=== PATIENT | female | born 1960 | race Caucasian/White ===

== ENCOUNTER 2021-07-06 21:14 | Observation (INO) | payer OTHER, SELFPAY ==
--- NOTE | ~2021-07-06 | XR_ITS ---
XR chest 1V DATE: 07/06/2021 22:43 INDICATION: Increased shortness of breath. Covid-positive. TECHNIQUE: PA chest COMPARISON: 07/22/2014 AP and lateral chest FINDINGS: Normal heart size. No hilar or mediastinal enlargement. There is patchy infiltrate and/or atelectasis in the left mid and both lower lung zones, left greater than right. No pleural effusion or pulmonary vascular congestion or pneumothorax. Degenerative spurring of the thoracic spine. Surgical clips, right upper quadrant, consistent with cholecystectomy. IMPRESSION: Patchy infiltrate and/or atelectasis in the left mid and both lower lung zones Reviewed, dictated and finalized at location A.
--- NOTE | ~2021-07-06 | CT_ITS ---
EXAMINATION: CTA chest PE protocol DATE: 07/07/2021 03:54 INDICATION: Shortness of breath. Positive Covid TECHNIQUE: Computed tomography angiography (CTA) of the chest was performed with 100 mL Omnipaque-350 intravenous contrast timed to evaluate the pulmonary arteries. Coronal maximum intensity projection 3D-reconstructions were created by the technologist. Automated exposure control and iterative reconst ruction technique were employed. Exam dose: 766.77 mGy-cm total exam DLP. COMPARISON: 07/06/2021 PA chest FINDINGS: There is suboptimal enhancement of the pulmonary arteries due to timing issue with the cont rast bolus. No central pulmonary embolus is identified. Examination is limited for evaluation of segmental and linares bsegmental pulmonary emboli. No thoracic aortic aneurysm or dissection. Normal heart size. No pericardial or pleural effusion. There are patchy groundglass infiltrates scattered throughout all lobes of both lungs, most prominent ly in the left lower lobe. Mild hilar and mediastinal lymph node prominence, likely reactive. Prominent degenerative disc disease in the lower cervical spine. Diffuse idiopathic skeletal hyperost osis of the thoracic spine.No suspicious osteolytic or osteoblastic lesions are noted. IMPRESSION: Multifocal bilateral pneumonia, most likely Covid pneumonia Suboptimal contrast enhancement of the pulmonary arteries; no central pulmonary embolus is identified . Reviewed, dictated and finalized at Location A. Reviewed, dictated and finalized at location A. IMPRESSION: Multifocal bilateral pneumonia, most likely Covid pneumonia Suboptimal contrast enhancement of the pulmonary arteries; no central pulmonary embolus is identified.
--- NOTE | 2021-07-06 21:22 | ECG_ITS ---
Measurements Intervals [place] Rate: 116 P: 46 MI: 172 QRS: -24 QRSD: 73 T: 70 QT: 303 QTc: 422 Interpretive Statements SINUS TACHYCARDIA LOW QRS VOLTAGE IN PRECORDIAL LEADS POOR R WAVE PROGRESSION, ANTERIOR LEADS BASELINE WANDER- II, III, AVL, AVF ABNORMAL ECG Electronically Signed On 07-07-2021 8:24:30 CDT by Elder Mchugh D.O.
[2021-07-06 21:23] VITALS: BP 154/89; PULSE 118; RESP 22; TEMP 35.7; O2SAT 93
[2021-07-06 21:42] LABS: Basophils Percent Auto 0.3 % (0.2-1.2); Eosinophils Percent Auto 0.5 % (0-4.4); Hematocrit 44.8 % (37.0-47.0); Hemoglobin 14.2 g/dL (12.0-15.0); Immature Granulocyte Absolute 0.03 K/mm3 (0.00-0.031); Immature Granulocyte Percent A 0.5 % (0-0.5); Lymphocytes Absolute Auto 2.35 K/mm3 (0.9-3.2); Lymphocytes Percent Auto 39.6 % (18.3-44.2); Mean Corpuscular HGB Conc 31.7 g/dl (32-36); Mean Corpuscular Hemoglobin 28.5 pg (26-34); Mean Platelet Volume 9.8 fl (7.4-10.4); Monocytes Absolute Auto 0.3 K/mm3 (0.1-0.6); Monocytes Percent Auto 4.6 % (2.6-8.5); Neutrophils Absolute Auto 3.2 K/mm3 (1.3-6.7); Neutrophils Percent Auto 54.5 % (45.5-73.1); Platelet Count Result 197 k/mm3 (150-375); Red Blood Count 4.98 M/mm3 (4.2-5.4); Red Cell Distribution Width 12.9 % (11.5-14.5); White Blood Count 5.9 K/mm3 (4.5-10.0)
[2021-07-06 21:48] LABS: Anion Gap 11 mmol/L (8-16); Blood Urea Nitrogen 19 mg/dL (7-17); Calcium 9.4 mg/dL (8.4-10.2); Carbon Dioxide 25 mmol/L (22-30); Chloride 99 mmol/L (98-107); Estimated Glomerular Filt Rate > 60; Glucose 181 mg/dL (65-110); Sodium 135 mmol/L (137-145)
[2021-07-07] VITALS (17 sets, daily range): BP systolic 125–163; BP diastolic 53–80; PULSE 73–114; RESP 15–24; TEMP 35.5–37.1; O2SAT 90–98; BMI 44.8
[2021-07-07 03:09] LABS: D Dimer 0.86 ug/mL (<0.48)
[2021-07-07 03:10] LABS: Alanine Aminotransferase 31 U/L (4-35); Albumin Level 4.2 g/dL (3.5-5.1); Alkaline Phosphatase 103 U/L (38-126); Aspartate Amino Transferase 58 U/L (14-36); Bilirubin,Total 0.8 mg/dL (0.2-1.3)
--- NOTE | 2021-07-07 03:16 | PC.NURSE ---
Patient ambulated to BSC to urinate, her O2 dropped to 88% on RA. Patient assisted back to her bed from bed side commode, her O2 increased to 92% on RA after rest. ERP notified.
--- NOTE | 2021-07-07 03:32 | ED.SOB ---
HPI - SOB/Dyspnea General Chief Complaint: Shortness of Breath/Dyspnea Stated Complaint: + covid, sob Time Seen by Provider: 07/07/21 02:36 Source: RN notes reviewed History of Present Illness HPI Narrative: Patient presents to emergency department from home for shortness of breath. Patient states she tested positive for Covid 19 on 30 June she states she did receive the vaccination she states that over the past several days she has had increasing shortness of breath with exertion she also notes some midsternal chest pain with inspiration only she denies any chest pain in any other time other than with inspiration she denies any fevers or chills abdominal pain nausea vomiting or any other symptoms Related Data Allergies Allergy/AdvReac Type Severity Reaction Status Date / Time codeine Allergy Intermediate RASH, Verified 07/07/21 02:30 DIFFICULTY BREATHING Review of Systems Review of Systems: Gen.: Denies fevers or chills Eyes: Denies eye pain or visual change ENT: Denies congestion Respiratory: Reports shortness of breath CV: Reports chest pain with inspiration GI: Denies abdominal pain nausea, emesis or diarrhea Musculoskeletal: Denies back pain or muscle pain Neuro: Denies numbness, tingling, weakness or focal weakness Skin: Denies rash Except as documented, all other systems reviewed and negative [facility] Past Medical History Medical History (Updated 07/07/21 @ 04:20 by Josh Vegas DO) Diabetes mellitus Hypertension Social History Social History (Updated 07/07/21 @ 03:34 by Josh Vegas DO) Smoking status: Never smoker Exam Narrative: APPEARANCE: No acute distress, nontoxic, resting in bed EYES: EOMI HEENT: Normocephalic, atraumatic, OMM RESPIRATORY: No respiratory distress Clear to auscultation bilaterally with no rhonchi wheezing or rales. CARDIOVASCULAR: Regular rate and rhythm without murmurs rubs or gallops. ABDOMINAL: Soft, nontender, nondistended, no rebound or guarding MUSCULOSKELETAl: Moves all extremities. No clubbing, cyanosis or edema. NEURO: Awake and alert. Following commands, speech normal, no focal deficits SKIN:: Warm, dry. No rashes lesions or abrasions PSYCHIATRIC: Normal affect/mood, Course Course Emergency Course: Patient went to use bedside commode with oxygen desaturation down to 87% Discussed with Dr. Gandhi presentation work-up agrees with admission at this time Discussed with patient and family results of workup and diagnosis. Discussed need for admission. Patient and family understand and agree to current treatment plan Vital Signs Vital signs: Vital Signs Temperature 96.3 F L 07/06/21 21:23 Pulse Rate 118 H 07/06/21 21:23 Respiratory Rate 22 H 07/06/21 21:23 Blood Pressure 154/89 H 07/06/21 21:23 Pulse Oximetry 93 07/06/21 21:23 Temperature 98.5 F 07/07/21 02:27 Pulse Rate 112 H 07/07/21 03:16 Respiratory Rate 15 07/07/21 03:16 Blood Pressure 163/74 H 07/07/21 03:16 Pulse Oximetry 92 07/07/21 03:16 MDM - SOB/Dyspnea Lab Data Result diagrams: 07/06/21 21:32 07/06/21 21:32 Labs: Lab Results 07/06/21 07/06/21 07/07/21 Range/Units 21:32 21:32 02:50 WBC 5.9 (4.5-10.0) K/mm3 RBC 4.98 (4.2-5.4) M/mm3 Hgb 14.2 (12.0-15.0) g/dL Hct 44.8 (37.0-47.0) % MCV 90.0 (80-100) fl MCH 28.5 (26-34) pg MCHC 31.7 L (32-36) g/dl RDW 12.9 (11.5-14.5) % Plt Count 197 (150-375) k/mm3 MPV 9.8 (7.4-10.4) fl Immature Gran % (Auto) 0.5 (0-0.5) % Neut % (Auto) 54.5 (45.5-73.1) % Lymph % (Auto) 39.6 (18.3-44.2) % [place] % (Auto) 4.6 (2.6-8.5) % Eos % (Auto) 0.5 (0-4.4) % Baso % (Auto) 0.3 (0.2-1.2) % Lymph # (Auto) 2.35 (0.9-3.2) K/mm3 [place] # (Auto) 0.3 (0.1-0.6) K/mm3 Eos # (Auto) 0.0 (0-0.3) K/mm3 Baso # (Auto) 0.0 (0.0-0.1) K/mm3 Abs Immat Gran (auto) 0.03 (0.00-0.031) K/mm3 Absolute Neuts (auto
--- NOTE | 2021-07-07 03:46 | PC.NURSE ---
This nurse called to CT for IV unable to use contrast, IV was tough to push. IV repositioned, but tender, still ok. 2nd IV placed in L AC, 20g.
[2021-07-07 04:05] LABS: Troponin I < 0.012 ng/mL (0.000-0.034)
--- NOTE | 2021-07-07 04:22 | PC.NURSE ---
Patient placed on 2L of oxygen via NC per EDP VORB.
--- NOTE | 2021-07-07 05:38 | ADMGEN ---
This patient, Laila Gamble, was admitted to [facility] Surg Room 302-01. Patient/family oriented to hospital policies and general routines including ID bracelet, bed and alarms, visiting hours, pain management, procedures, bathroom and other care routines, personal items, smoking policy, room service/diet, and visiting hours. Information on how to activate the Rapid Response Team has been discussed. Patient/Family are encouraged to report perceived risks to care and to ask questions if they do not understand what they are told or what they should do.
[2021-07-07 07:48] LABS: Troponin I < 0.012 ng/mL (0.000-0.034)
--- NOTE | 2021-07-07 08:26 | PM.IMHP ---
H&P: HPI History of Present Illness Date/Time: 07/07/21 08:26 Laila was a pleasant 61-year-old female admitted for COVID. She tested positive on Thursday and started feeling much worse on . She was admitted Thursday, yesterday here in the ER. She was started on dexamethasone and now on Remdesivir. Troponins x3 were negative and normal. Her hepatic panel was normal. D-dimer is slightly elevated at 0.86, but her CT scan showed no evidence of pulmonary emboli, but did show consistent COVID pneumonia. Her A1c is elevated at 7.7 started her ACHS glucose checks and moderate sliding scale insulin. She has been on 2 L of oxygen per nasal cannula, feeling better while at rest. But she is extremely dyspneic with conversation and especially with activity or ambulation to the bathroom. She has been trying to give herself a bed bath while sitting up on the side of the bed and that has taken more than 30 minutes, due to her dyspnea. Chief Complaint: COVID +, SOB, Dyspnea Review of Systems Review of Systems: All systems reviewed & are unremarkable except as noted in HPI and below Constitutional: Constitutional: Reports as per HPI, Denies excessive sweating, Reports fatigue, Denies headache(s), Denies increased appetite, Reports lethargy, Reports malaise, Denies snoring, Reports weakness and Denies weight gain Eyes: Eyes: Reports as per HPI, Denies exophthalmos, Denies diplopia, Denies floaters and Denies loss of peripheral vision ENT: Reports as per HPI, Reports Normal hearing present, Denies facial pain, Denies headache(s), Denies odynophagia and Denies tinnitus Cardiovascular: Cardiovascular: Reports as per HPI Respiratory: Respiratory: Reports as per HPI, Reports chest congestion, Reports cough, Denies hemoptysis, Reports dyspnea, Reports dyspnea on exertion, Denies snoring and Reports wheezing Gastrointestinal: Gastrointestinal: Reports as per HPI, Denies abdominal pain, Denies melena, Denies bloating, Denies diarrhea, Denies nausea, Denies odynophagia, Denies vomiting and Denies hematemesis Genitourinary: Genitourinary: Reports as per HPI, Denies nocturia, Denies dysuria, Denies urinary hesitancy and Denies vaginal discharge Musculoskeletal: Musculoskeletal: Reports as per HPI and Reports back pain (left upper back pain pain but only during/with coughing) Integumentary/Breasts: Skin/Breast: Reports as per HPI Neurologic: Reports as per HPI, Denies Abnormal speech present, Denies confusion, Denies headache(s) and Denies numbness Psychiatric: Psychiatric: Reports as per HPI, Denies anxiety, Denies confusion and Denies depression Endocrine: Endocrine: Denies excessive sweating PMFSH Past Medical History Medical History (Updated 07/07/21 @ 16:39 by Judy Pressley NP) Diabetes mellitus Hypertension Social History Social History (Updated 07/07/21 @ 03:34 by Josh Vegas DO) Smoking status: Never smoker Alcohol intake: never Substance use: never Gender identity (if verbalized by the patient): Female Spiritual care concerns: No Meds Home Medications and Allergies Home Medications Medication Instructions Recorded Confirmed Type diclofenac sodium 75 mg PO BID 07/07/21 07/07/21 History gabapentin 900 mg PO HS 07/07/21 07/07/21 History glimepiride 1 mg PO DAILY 07/07/21 07/07/21 History metformin 1,000 mg PO BID 07/07/21 07/07/21 History metoprolol tartrate 150 mg PO BID 07/07/21 07/07/21 History tramadol-acetaminophen 50 mg PO Q6H PRN 07/07/21 07/07/21 History Allergies Allergy/AdvReac Type Severity Reaction Status Date / Time codeine Allergy Intermediate RASH, Verified 07/07/21 02:30 DIFFICULTY BREATHING Vital Signs Vital Signs - 24 hr 07/06/21 21:23 07/07/21 00:02 07/07/21 02:27 Temperature 35.7 C L 36.9 C Pulse Rate 118 H 114 H 110 H Respiratory Rate 22 H 22 H 21 H Blood Pressure 154/89 H 125/74 156/80 H Pulse Oximetry 93 95 94 07/07/21 02:29 07/07/21 02:34
[2021-07-07] MEDS: DEXAMETHASONE SOD PHOS INJ 4 MG/ML VIAL 6 MG IV PUSH (09:18)
[2021-07-07] MEDS: ALBUTEROL SULFATE (*SP) AEROSOL 1 PUFF 2 PUFF INHALATION ×2 (09:28→20:02)
[2021-07-07 10:42] LABS: Troponin I < 0.012 ng/mL (0.000-0.034)
[2021-07-07 11:45] LABS: Glucose Point of Care 299 mg/dl (65-105)
[2021-07-07 12:52] LABS: Hemoglobin A1C 7.7 % (<5.7)
[2021-07-07] MEDS: INSULIN ASPART (*BKC) 100 UNITS/ML SUB-Q ×2 (13:12→16:51)
[2021-07-07 16:48] LABS: Alanine Aminotransferase 31 U/L (4-35); Estimated CRCL calculation 115 ml/min; Estimated Glomerular Filt Rate > 60
[2021-07-07 16:49] LABS: INR 0.9; Prothrombin Time 11.7 Seconds (11.1-14.7)
[2021-07-07 17:31] LABS: Glucose Point of Care 292 mg/dl (65-105)
--- NOTE | 2021-07-07 17:37 | PCRCNOTE ---
Window of time for administration has passed. See next scheduled administration.
[2021-07-07] MEDS: REMDESIVIR 200 MG/NS 250 ML 200 MG/250 ML BAG 250 MG IVPB (18:41)
[2021-07-07] MEDS: METOPROLOL TARTRATE 50 MG TAB 150 MG PO (20:09)
[2021-07-07] MEDS: GABAPENTIN 300 MG CAPSULE 900 MG PO (20:10)
[2021-07-07 20:44] LABS: Glucose Point of Care 283 mg/dl (65-105)
[2021-07-08] VITALS (14 sets, daily range): BP systolic 132–155; BP diastolic 49–67; PULSE 59–90; RESP 16–20; TEMP 35.7–36.9; O2SAT 92–95
[2021-07-08] MEDS: ALBUTEROL SULFATE (*SP) AEROSOL 1 PUFF 2 PUFF INHALATION ×4 (01:24→21:01)
[2021-07-08 06:40] LABS: Basophils Percent Auto 0.3 % (0.2-1.2); Hematocrit 40.2 % (37.0-47.0); Hemoglobin 12.9 g/dL (12.0-15.0); Immature Granulocyte Absolute 0.07 K/mm3 (0.00-0.031); Immature Granulocyte Percent A 1.1 % (0-0.5); Lymphocytes Absolute Auto 1.34 K/mm3 (0.9-3.2); Lymphocytes Percent Auto 21.3 % (18.3-44.2); Mean Corpuscular HGB Conc 32.1 g/dl (32-36); Mean Corpuscular Hemoglobin 28.5 pg (26-34); Mean Corpuscular Volume 88.9 fl (80-100); Mean Platelet Volume 9.8 fl (7.4-10.4); Monocytes Absolute Auto 0.5 K/mm3 (0.1-0.6); Monocytes Percent Auto 7.8 % (2.6-8.5); Neutrophils Absolute Auto 4.4 K/mm3 (1.3-6.7); Neutrophils Percent Auto 69.5 % (45.5-73.1); Platelet Count Result 262 k/mm3 (150-375); Red Blood Count 4.52 M/mm3 (4.2-5.4); Red Cell Distribution Width 12.7 % (11.5-14.5); White Blood Count 6.3 K/mm3 (4.5-10.0)
[2021-07-08 07:05] LABS: Alanine Aminotransferase 26 U/L (4-35); Anion Gap 9 mmol/L (8-16); Blood Urea Nitrogen 18 mg/dL (7-17); Carbon Dioxide 23 mmol/L (22-30); Chloride 104 mmol/L (98-107); Estimated CRCL calculation 100 ml/min; Estimated Glomerular Filt Rate > 60; Glucose 244 mg/dL (65-110); Magnesium 2.1 mg/dL (1.6-2.3); Potassium 4.6 mmol/L (3.4-5.0); Sodium 136 mmol/L (137-145)
[2021-07-08 07:52] LABS: Glucose Point of Care 237 mg/dl (65-105)
[2021-07-08] MEDS: DEXAMETHASONE SOD PHOS INJ 4 MG/ML VIAL 6 MG IV PUSH (08:46)
[2021-07-08] MEDS: INSULIN ASPART (*BKC) 100 UNITS/ML SUB-Q ×3 (08:47→17:06)
[2021-07-08] MEDS: METOPROLOL TARTRATE 50 MG TAB 150 MG PO ×2 (09:35→21:45)
[2021-07-08 12:03] LABS: Glucose Point of Care 262 mg/dl (65-105)
--- NOTE | 2021-07-08 13:19 | PM.IMPN ---
Progress Note: A&P Assessment and Plan (1) Acute respiratory failure with hypoxia: Code(s): J96.01 - Acute respiratory failure with hypoxia Status: Acute Assessment and Plan: admitted for COVID. tested positive on Thursday and started feeling much worse on . admitted Thursday, yesterday here in the ER. started on dexamethasone and now on Remdesivir. Troponins x3 were negative and normal. D-dimer is slightly elevated at 0.86, but her CT scan showed no evidence of pulmonary emboli, but did show consistent COVID pneumonia. on 2 L of oxygen per nasal cannula, weaned off O2 at this time, feeling better while at rest but still dyspneic with activity. extremely dyspneic with conversation and especially with activity or ambulation to the bathroom. see the plan for COVID below (2) COVID-19: Code(s): U07.1 - COVID-19 Status: Acute Assessment and Plan: admitted for COVID. tested positive on Thursday and started feeling much worse on . admitted Thursday, yesterday here in the ER. started on dexamethasone and now on Remdesivir. CT scan showed no evidence of pulmonary emboli, but did show consistent COVID pneumonia. on 2 L of oxygen per nasal cannula, weaned off O2 at this time, feeling better while at rest but still dyspneic with activity. extremely dyspneic with conversation and especially with activity or ambulation to the bathroom. not on oxygen at home prior to admission albuterol inhalers scheduled with p.r.n. DuoNeb nebulizer treatments incentive spirometer ordered extremely dyspneic with conversation and especially with activity or ambulation to the bathroom see the plan for acute respiratory failure with hypoxia noted above (3) Hypertension: Code(s): I10 - Essential (primary) hypertension Status: Acute Assessment and Plan: her blood pressure is ranging from 137/68 to 163/74 with a heart rate 100-112 (4) Diabetes mellitus: Code(s): E11.9 - Type 2 diabetes mellitus without complications Status: Acute Assessment and Plan: Encouraged dietary control and increased activity PT and OT evaluation controlled glucose levels better started on dexamethasone and this will likely increase her glucose levels A1c is elevated at 7.7 started her [facility] glucose checks and moderate sliding scale insulin. (5) Morbid obesity with BMI of 40.0-44.9, adult: Code(s): E66.01 - Morbid (severe) obesity due to excess calories; Z68.41 - Body mass index [BMI]40.0-44.9, adult Status: Acute Assessment and Plan: Encouraged dietary control and increased activity PT and OT evaluation controlled glucose levels better Subjective Date/time seen: 07/08/21 13:19 Laila is feeling much better today and managed to finally wean from the supplemental oxygen just today. We will see if she can remain off the supplemental oxygen for the next 24-48 hours. She is still having dyspnea with exertion, may benefit from rehab. Continue her on Remedisvir for a full course. Laila was complaining of burning with urination this morning. I have ordered urinalysis and urine culture to be collected - will wait until those result until starting anbiobiotics, as she has no fevers and her WBC is 6.3. Review of Systems Review of Systems: All systems reviewed & are unremarkable except as noted in HPI and below Constitutional: Constitutional: Reports as per HPI, Denies excessive sweating, Reports fatigue, Denies headache(s), Denies increased appetite, Reports lethargy, Reports malaise, Denies snoring, Reports weakness and Denies weight gain Eyes: Eyes: Reports as per HPI, Denies exophthalmos, Denies diplopia, Denies floaters and Denies loss of peripheral vision ENT: Reports as per HPI, Reports Normal hearing present, Denies facial pain, Denies headache(s), Denies odynophagia and Denies tinnitus Cardiovascular: Cardiovascular: Reports as per HPI, R
[2021-07-08 13:51] LABS: Add Urine Microscopic? YES; Appearance Urine Cloudy (Clear); Bacteria Urine 4+ /hpf; Bilirubin Urine Negative (Negative); Blood Urine 1+ (Negative); Color Urine Yellow (Yellow); Glucose Urine UA Negative (Negative); Ketones Urine Negative (Negative); Leukocyte Esterase Ur 2+ LEU/UL (NEGATIVE); Mucus Urine Heavy /lpf; Nitrate Urine Negative (Negative); Protein Urine Negative (Negative); RBC Urine 0-2 /hpf (0-2); Specific Grav Ur 1.023 (1.001-1.035); Squamous Epithelial Cell Urine Few /hpf (Few); WBC Urine 21-30 /hpf (0-3)
[2021-07-08 16:42] LABS: Glucose Point of Care 302 mg/dl (65-105)
[2021-07-08] MEDS: REMDESIVIR 100 MG/NS 250 ML 100 MG/250 ML BAG 250 MG IVPB (21:44)
[2021-07-08] MEDS: GABAPENTIN 300 MG CAPSULE 900 MG PO (21:46)
[2021-07-08 22:00] LABS: Glucose Point of Care 293 mg/dl (65-105)
[2021-07-09] VITALS (9 sets, daily range): BP systolic 115–147; BP diastolic 48–60; PULSE 53–62; RESP 14–18; TEMP 36.4–36.8; O2SAT 92–99
[2021-07-09 07:00] LABS: Hemoglobin 12.4 g/dL (12.0-15.0); Mean Corpuscular HGB Conc 32.6 g/dl (32-36); Mean Corpuscular Hemoglobin 28.6 pg (26-34); Mean Corpuscular Volume 87.6 fl (80-100); Mean Platelet Volume 10.1 fl (7.4-10.4); Platelet Count Result 292 k/mm3 (150-375); Red Blood Count 4.34 M/mm3 (4.2-5.4); Red Cell Distribution Width 12.4 % (11.5-14.5); White Blood Count 7.7 K/mm3 (4.5-10.0)
[2021-07-09 07:11] LABS: Alanine Aminotransferase 31 U/L (4-35); Anion Gap 11 mmol/L (8-16); Blood Urea Nitrogen 24 mg/dL (7-17); Calcium 8.9 mg/dL (8.4-10.2); Carbon Dioxide 20 mmol/L (22-30); Chloride 100 mmol/L (98-107); Estimated CRCL calculation 115 ml/min; Estimated Glomerular Filt Rate > 60; Glucose 231 mg/dL (65-110); Potassium 3.8 mmol/L (3.4-5.0); Sodium 131 mmol/L (137-145)
[2021-07-09 07:24] LABS: Prothrombin Time 13.3 Seconds (11.1-14.7)
[2021-07-09] MEDS: ALBUTEROL SULFATE (*SP) AEROSOL 1 PUFF 2 PUFF INHALATION ×2 (08:03→14:56)
[2021-07-09 08:13] LABS: Glucose Point of Care 203 mg/dl (65-105)
[2021-07-09] MEDS: DEXAMETHASONE SOD PHOS INJ 4 MG/ML VIAL 6 MG IV PUSH (08:49)
[2021-07-09] MEDS: METOPROLOL TARTRATE 50 MG TAB 150 MG PO (08:49)
[2021-07-09] MEDS: INSULIN ASPART (*BKC) 100 UNITS/ML SUB-Q ×2 (08:50→12:05)
[2021-07-09 12:09] LABS: Glucose Point of Care 318 mg/dl (65-105)
--- NOTE | 2021-07-09 13:46 | PCDIET ---
Pt called regarding questions on the consistent carb diet. She does not always like the carb options provided and is allowed 60g of carbs per meal. I explained to the patient that if she does not eat the carb servings provided on her tray, the healthcare associate inspector finishing can call down to the kitchen to request a replacement. Diet office notified as well.
--- NOTE | 2021-07-09 15:53 | PM.DS ---
DS: Admitting Diagnosis Admitting Diagnosis SOB DS: Discharge Diagnosis Discharge Diagnosis (1) Acute respiratory failure with hypoxia: Code(s): J96.01 - Acute respiratory failure with hypoxia Status: Acute Assessment and Plan: Patient is a 61-year-old woman with a history of diabetes, who presented to the emergency room with worsening shortness of breath. The patient tested positive for COVID on June 30 and was doing well at home until she had increased shortness of breath with exertion and chest pain with deep inspiration and coughing. She decided to come to the emergency room for further evaluation. Initial vitals showed blood pressure elevation 154/89, tachycardic at 118, increased respiratory rate 22, afebrile, normal saturation on room air 93%. Initial labs showed normal CBC with differential, elevated D-dimer at 0.86, slight hyponatremia at 135, hemoglobin A1c is 7.7%. Troponins negative x3. Slight AST elevation at 58. Urinalysis showing 1+ blood, 2+ leukocyte esterase, wbc's 21-30, and 4+ urine bacteria. CXR showed Patchy infiltrate and/or atelectasis in the left mid and both lower lung zones. CTA Chest showing Multifocal bilateral pneumonia, most likely COVID pneumonia. Suboptimal contrast enhancement of the pulmonary arteries; no central pulmonary embolus is identified. She was admitted into the hospital for further monitoring for COVID-19. During her hospitalization she did require oxygen via nasal cannula. She was started on IV dexamethasone and remdesivir along with symptomatic care. After a few days of treatment she was able to be weaned off of the oxygen completely. Today she told me she did 6 labs in her room of walking with very low minimal shortness of breath with exertion. She also made her bed and was feeling well. She had a home oxygen evaluation which showed she did not require any oxygen upon discharge. She was feeling comfortable with discharge at this time to continue with 7 more days of dexamethasone p.o.. Told patient to continue isolating. Told her to follow-up primary care provider after 1 week. Patient understands and agrees with the plan all questions answered. (2) COVID-19: Code(s): U07.1 - COVID-19 Status: Acute (3) Hypertension: Code(s): I10 - Essential (primary) hypertension Status: Acute Assessment and Plan: her blood pressure is ranging from 137/68 to 163/74 with a heart rate 100-112 (4) Diabetes mellitus: Code(s): E11.9 - Type 2 diabetes mellitus without complications Status: Acute Assessment and Plan: Told the patient to continue taking her glucose throughout the day because it can become higher since she is on steroids. Call her doctor if glucose is greater than 350. Patient understands agrees the plan all questions answered. (5) Morbid obesity with BMI of 40.0-44.9, adult: Code(s): E66.01 - Morbid (severe) obesity due to excess calories; Z68.41 - Body mass index [BMI]40.0-44.9, adult Status: Acute DS: Summary Hospital Course Hospital Course: See above Status at Discharge Cognitive/behavioral status at discharge: Stable, improved. Time Spent with Patient Time attestation: Total time spent providing and/or coordinating discharge services: Time spent: Greater than 30 minutes Exam Narrative: General: 61-year-old woman sitting up on the side of the bed talking on the phone. Appears comfortable. In no acute distress. Skin: No jaundice or cyanosis. Good skin turgor. Neck: Full range of motion. Supple. Respiratory: Lungs are clear to auscultation bilaterally. No bony chest wall tenderness. Cardiovascular: The heart has a regular rate and rhythm without murmur. Lower extremities: No lower extremity edema. Distal pulses are easily palpated. No calf tenderness to palpation. Gastrointestinal: The abdomen is soft, nontender and nondistended with active bowel sounds. Psychiatric: Lucid
--- NOTE | 2021-07-09 16:31 | PCRCNOTE ---
HOME O2 EVAL DONE, NO HOME O2 NEEDED. RN NOTIFIED
== END 2021-07-09 17:13 | disposition home or self-care (01) ==
LOC: ANHED 07-07 04:20 → ANH3MEDSUR 07-07 04:51
PROVIDERS: Nurse Practitioner; Physician Assistant; Admitting Provider Internal Medicine; Emergency Provider Emergency Medicine; PCP Family Medicine Adolescent Medicine; Visit Provider Internal Medicine
DX: U07.1 COVID-19 (principal); J12.82 Pneumonia due to coronavirus disease 2019; J96.01 Acute respiratory failure with hypoxia; E11.9 Type 2 diabetes mellitus without complications; I10 Essential (primary) hypertension; E66.01 Morbid (severe) obesity due to excess calories; Z68.41 Body mass index [BMI] 40.0-44.9, adult
CPT/HCPCS: 36415; 71045; 71275; 80048; 80076; 81001; 82565; 82948; 83036; 83735; 84460; 84484; 85025; 85027; 85380; 85610; 87040; 87077; 87086; 87088; 87186; 93005; 94618; 94640; 96365; 96374; 96375; 96376; 97161; 97165; 99285; A9270; G0378; J1100; J1815; Q9967

== ENCOUNTER 2022-05-23 19:18 | Emergency (ER) | payer OTHER, SELFPAY ==
[2022-05-23 19:32] VITALS: BP 165/97; PULSE 74; RESP 20; TEMP 36.2; O2SAT 100
--- NOTE | 2022-05-23 19:39 | ED.SKABFB ---
HPI - Skin/Abscess/Foreign Bdy General Chief complaint: Skin/Abscess/Foreign Body Stated complaint: Sore on Leg Time Seen by Provider: 05/23/22 19:39 Source: patient Mode of arrival: ambulatory Limitations: no limitations History of Present Illness HPI narrative: 61 yo F presents with abrasion to R cedeno for 5 days. States that she hit her leg on bed frame Thursday. Has been cleaning wound daily with soap and water. Today noticed soreness surround abrasion. Had white drainage. 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 hx of diabetes. pt afraid of getting infection. All systems reviewed and negative except as noted above. Related Data Home Medications Medication Instructions Recorded Confirmed metformin 1,000 mg tablet 1,000 mg PO BID 07/07/21 05/23/22 tramadol-acetaminophen 50 mg PO Q6H PRN Pain 07/07/21 05/23/22 Allergies Allergy/AdvReac Type Severity Reaction Status Date / Time codeine Allergy Intermediate RASH, Verified 05/23/22 19:25 DIFFICULTY BREATHING IRMA Inhibitors AdvReac Unknown cough Verified 05/23/22 19:25 Review of Systems Review of Systems: CONSTITUTIONAL: Denies fever, chills, or sweats. EYES: Denies visual changes, redness, or discharge. ENT: Denies rhinorrhea, congestion, sore throat, or otalgia. CARDIOVASCULAR: Denies chest pain, palpitations, or edema. RESPIRATORY: Denies cough or dyspnea. GASTROINTESTINAL: Denies abdominal pain, nausea, vomiting, or diarrhea. GENITOURINARY: Denies dysuria or hematuria. SKIN: Denies rash or itching. Reports abrasion right mid cedeno. MUSCULOSKELETAL: Denies back pain, joint pain, or myalgia. NEUROLOGIC: Denies headache, numbness, or weakness. PSYCHIATRIC: Denies anxiety or depression. All other systems reviewed are negative, except as documented in HPI. [facility] Past Medical History Medical History Acute respiratory failure with hypoxia COVID-19 Hypertension Pure hypercholesterolemia, unspecified Type 2 diabetes mellitus with diabetic polyneuropathy Surgical History Surgical History History of appendectomy History of History of cholecystectomy Family History Family History (Updated 03/03/22 @ 08:32 by Zoie Joseph MA) Mother Diabetes mellitus Hypertension Cerebrovascular accident Father Heart disease Hypertension Sibling Depression Liver cancer Other Breast cancer Social History Social History (Updated 03/03/22 @ 08:32 by Zoie Joseph MA) Smoking status: Never smoker Second hand tobacco smoke exposure: No Alcohol intake: never Substance use: never Substance use type: does not use Gender identity (if verbalized by the patient): Female Sexual Orientation (if Verbalized by the Patient): Straight or Heterosexual Spiritual care concerns: No Agree to blood products: Yes Comments At time of signature, agree with nursing past medical, surgical, social and family history. There is no relevant family history pertinent to the presenting complaint. Exam Narrative: GENERAL: This is a well-nourished, well-developed patient, in no apparent distress. HEAD: normocephalic, atraumatic. EYES: PERRL. Sclera clear/white. Vision is grossly intact. EARS: External ears normal NOSE: External nose normal NECK: Neck supple, non-tender without lymphadenopathy, masses or thyromegaly. CARDIOVASCULAR: Regular rate and rhythm without murmurs, gallops, or rubs. RESPIRATORY: Clear to auscultation. Breath sounds equal bilaterally. No wheezes, rales, or rhonchi. SKIN: warm, Dry, with no suspicious lesions or rash, good texture and turgor. small abrasion to R cedeno approx. 1 cm. mild erythema. no drainage. NEURO: awake, alert, and oriented to person, place and time. There were no obvious focal neurologic abnormalities. EXTREMITIES: No joint tenderness, effusion, or edema noted. Course [place]
== END 2022-05-23 19:48 | disposition home or self-care (01) ==
PROVIDERS: Emergency Provider Nurse Practitioner Family; PCP Family Medicine Adolescent Medicine
DX: S80.811A Abrasion, right lower leg, initial encounter (principal); W22.03XA Walked into furniture, initial encounter; I10 Essential (primary) hypertension; E78.00 Pure hypercholesterolemia, unspecified; E11.42 Type 2 diabetes mellitus with diabetic polyneuropathy; Z86.16 Personal history of COVID-19
CPT/HCPCS: 99213; G0463

== ENCOUNTER 2022-08-14 17:39 | Emergency (ER) | payer OTHER, SELFPAY ==
--- NOTE | ~2022-08-14 | XR_ITS ---
XR tibia fibula RT 2V 08/14/2022 18:07 INDICATION: Right leg pain PROCEDURE: 2 views right tibia/fibula COMPARISON: No prior studies for comparison. FINDINGS: Fracture, dislocation or subluxation is not identified. There is mild osteoarthritis of the right knee. The soft tissues appear within normal limits. No foreign bodies are identified. IMPRESSION: 1: NO ACUTE BONE OR JOINT ABNORMALITY IDENTIFIED. Reviewed, dictated and finalized at location A.
[2022-08-14 17:51] VITALS: BP 204/78; PULSE 74; RESP 16; TEMP 37; O2SAT 100
--- NOTE | 2022-08-14 17:53 | ED.LOWEXIN ---
HPI - Extremity Injury (Lower) General Chief Complaint: Extremity Injury, Lower Stated Complaint: Fall Injury/ Right Leg Pain Time Seen by Provider: 08/14/22 17:53 Source: patient, RN notes reviewed and old records reviewed Mode of arrival: ambulatory Limitations: no limitations History of Present Illness HPI Narrative: 62-year-old female presents to the [facility] with complaints of right leg pain after she fell 6 days ago on August 08. No bruising or swelling noted. Tenderness to lateral and posterior calf. States that she has taken leftover tramadol , 3 of them today and its not helping with the pain. No other treatment prior to arrival. Patient states that she does take diclofenac and gabapentin already. Denies any knee pain or ankle pain. Related Data Allergies Allergy/AdvReac Type Severity Reaction Status Date / Time codeine Allergy Intermediate RASH, Verified 08/14/22 17:41 DIFFICULTY BREATHING IRMA Inhibitors AdvReac Unknown cough Verified 08/14/22 17:41 Review of Systems Review of Systems: All systems reviewed & are unremarkable except as noted in HPI and below Constitutional: Constitutional: Reports no additional constitutional complaints, Denies chills and Denies fever(s) Eyes: Eyes: Reports no additional eye complaints ENT: Reports system reviewed and no additional complaints, except as documented Cardiovascular: Cardiovascular: Reports no additional cardiovascular complaints Respiratory: Respiratory: Reports no additional respiratory complaints Gastrointestinal: Gastrointestinal: Reports no additional gastrointestinal complaints Musculoskeletal: Musculoskeletal: Reports as per HPI and Denies arthralgias Integumentary/Breasts: Skin/Breast: Reports system reviewed and no additional complaints, except as docu Neurologic: Reports system reviewed and no additional complaints, except as documented Psychiatric: Psychiatric: Reports no additional psychiatric complaints Allergic/Immunologic: Allergic/Immunologic: Reports no additional allergic/immunologic complaints [facility] Past Medical History Medical History Acute respiratory failure with hypoxia COVID-19 Hypertension Pure hypercholesterolemia, unspecified Type 2 diabetes mellitus with diabetic polyneuropathy Surgical History Surgical History History of appendectomy History of History of cholecystectomy Family History Family History Mother Diabetes mellitus Hypertension Cerebrovascular accident Father Heart disease Hypertension Sibling Depression Liver cancer Other Breast cancer Social History Social History Smoking status: Never smoker Second hand tobacco smoke exposure: No Alcohol intake: never Substance use: never Substance use type: does not use Gender identity (if verbalized by the patient): Female Sexual Orientation (if Verbalized by the Patient): Straight or Heterosexual Spiritual care concerns: No Agree to blood products: Yes Comments At the time of my signature, I reviewed and agree with the nursing past medical, surgical, social, and family history. There is no relevant family history pertinent to the patient complaint. Exam Const: General: healthy appearing, no acute distress, alert and well nourished Nutritional Appearance: well nourished and obese Orientation/consciousness: patient oriented x3 Limitations: no limitations HENMT: Head: normal to inspection Ears: external ears normal Eyes: General: appearance normal, both eyes and all related structures Conjunctivae: conjunctivae normal Pupils: Equal, round and reactive pupils present Neck: Neck: normal visual inspection, no lymphadenopathy and no meningeal signs Chest: Chest palpation & inspection: nor
[2022-08-14 18:29] VITALS: BP 180/72
== END 2022-08-14 18:26 | disposition home or self-care (01) ==
PROVIDERS: Emergency Provider Nurse Practitioner; PCP Family Medicine Adolescent Medicine
DX: S80.11XA Contusion of right lower leg, initial encounter (principal); W19.XXXA Unspecified fall, initial encounter; I10 Essential (primary) hypertension; E78.00 Pure hypercholesterolemia, unspecified; E11.42 Type 2 diabetes mellitus with diabetic polyneuropathy; Z86.16 Personal history of COVID-19
CPT/HCPCS: 73590; 99213; G0463

== ENCOUNTER 2022-08-18 18:15 | Emergency (ER) | payer OTHER, SELFPAY ==
--- NOTE | ~2022-08-18 | XR_ITS ---
EXAM: XR ankle RT min 3V DATE: 08/18/2022 19:52 HISTORY: Right ankle pain, FALL ON 08/08, POSTERIOR SIDE PAIN . COMPARISON: 08/14/2022. FINDINGS: Normal mineralization. No fracture or dislocation. No lytic or blastic lesion. Degenerativ e changes in the tibiotalar joint and multiple midfoot joints. Achilles and plantar enthesopathy. No erosion or periosteal change. Vascular calcification. IMPRESSION: No acute osseous finding in the right ankle. Reviewed, dictated and finalized at location K.
[2022-08-18 18:30] VITALS: BP 229/82; PULSE 81; RESP 15; TEMP 37.1; O2SAT 99
--- NOTE | 2022-08-18 19:34 | ED.LOWEXIN ---
HPI - Extremity Injury (Lower) General Chief Complaint: Extremity Injury, Lower Stated Complaint: fall, R. leg pain Time Seen by Provider: 08/18/22 18:58 History of Present Illness HPI Narrative: This is a 62-year-old female with past medical history of diabetes and hypertension, who presents emergency department complaining of right ankle pain for the past 10 days. She states she was carrying boxes when she missed stepped, causing the right leg to fold below the thigh. She complains of right distal leg pain, described as tearing, 10 out of 10 at worst, aggravated by walking and alleviated somewhat with Tylenol. She states she is able to ambulate. She denies hitting her head or loss of consciousness. She was previously evaluated in urgent care and states imaging was not concerning for fracture. Related Data Allergies Allergy/AdvReac Type Severity Reaction Status Date / Time codeine Allergy Intermediate RASH, Verified 08/18/22 18:37 DIFFICULTY BREATHING FAMILIA Inhibitors AdvReac Unknown cough Verified 08/18/22 18:37 Review of Systems Review of Systems: CONSTITUTIONAL: Denies fever, chills, or sweats. CARDIOVASCULAR: Denies chest pain, palpitations, or edema. RESPIRATORY: Denies cough or dyspnea. GASTROINTESTINAL: Denies abdominal pain, nausea, vomiting, or diarrhea. GENITOURINARY: Denies dysuria or hematuria. SKIN: Denies rash or itching. MUSCULOSKELETAL: Right leg and ankle pain denies back pain, or myalgia. NEUROLOGIC: Denies headache, numbness, dizziness, or weakness. PSYCHIATRIC: Denies anxiety or depression. [facility] Past Medical History Medical History Acute respiratory failure with hypoxia COVID-19 Hypertension Pure hypercholesterolemia, unspecified Type 2 diabetes mellitus with diabetic polyneuropathy Surgical History Surgical History History of appendectomy History of History of cholecystectomy Family History Family History Mother Diabetes mellitus Hypertension Cerebrovascular accident Father Heart disease Hypertension Sibling Depression Liver cancer Other Breast cancer Social History Social History Smoking status: Never smoker Second hand tobacco smoke exposure: No Alcohol intake: never Substance use: never Substance use type: does not use Gender identity (if verbalized by the patient): Female Sexual Orientation (if Verbalized by the Patient): Straight or Heterosexual Spiritual care concerns: No Agree to blood products: Yes Exam Narrative: GENERAL: Well-developed, well-nourished, appears uncomfortable HEAD: Normocephalic, atraumatic. EYES: PERRLA and EOMI. NECK: Supple. No adenopathy or masses. No carotid bruits or JVD CHEST: Clear to auscultation. No respiratory distress. No wheezes rales or rhonchi HEART: Regular rate and rhythm. No murmur heard. Normal peripheral pulses. ABDOMEN: Soft, nontender, nondistended, normal active bowel sounds. EXTREMITIES: Tender to palpation over the distal lateral aspect of the right foreleg, just superior to the ankle; there is no noted ecchymosis though a mild amount of swelling ; and active flexion extension of the ankle is intact, normal range of motion. No edema. SKIN: Warm, dry, no rash. NEURO: No focal deficits. Alert and oriented x3. PSYCH: Normal mood and affect. Course Course Emergency Course: 20:25 - X-ray not concerning for fracture. I suspect muscle strain vs tear. I do not suspect Achilles tendon rupture. Will Familia wrap, provide lidocaine patches and muscle relaxant, and have patient follow-up with a primary care doctor. Discussed return emergency precautions including signs/symptoms of compartment syndrome. The patient voiced understanding is comfortable with the plan. All questions a
--- NOTE | 2022-08-18 19:37 | PC.NURSE ---
Called pharmacy for lidocaine patch for pt
[2022-08-18] MEDS: LIDOCAINE 5% PATCH 1 PATCH TRANSDERM (19:56)
[2022-08-18 20:30] VITALS: BP 207/87; PULSE 66; RESP 18; O2SAT 97
--- NOTE | 2022-08-18 20:30 | PC.NURSE ---
Pt BP elevated. Dr Byrd notified and new orders received.
[2022-08-18] MEDS: amLODIPine BESYLATE 5 MG TABLET PO (20:45)
[2022-08-18 21:59] VITALS: BP 196/96; PULSE 67; RESP 16; O2SAT 99
== END 2022-08-18 22:01 | disposition home or self-care (01) ==
PROVIDERS: Emergency Provider Preventive Medicine Aerospace Medicine; PCP Family Medicine Adolescent Medicine
DX: S93.401A Sprain of unspecified ligament of right ankle, initial encounter (principal); S96.911A Strain of unspecified muscle and tendon at ankle and foot level, right foot, initial encounter; I10 Essential (primary) hypertension; E78.00 Pure hypercholesterolemia, unspecified; E11.42 Type 2 diabetes mellitus with diabetic polyneuropathy; Z86.16 Personal history of COVID-19; Z79.84 Long term (current) use of oral hypoglycemic drugs
CPT/HCPCS: 73610; 99283; A9270

== ENCOUNTER 2022-12-15 16:19 | Outpatient (CLI) | payer OTHER, SELFPAY ==
--- NOTE | ~2022-12-15 | MR_ITS ---
EXAMINATION: MR lumbar spine wo con DATE: 12/15/2022 17:18 INDICATION: Lumbar pain. TECHNIQUE: Magnetic resonance imaging (MRI) of the lumbar spine was performed without intravenous con trast. Sequences included sagittal T2-weighted FSE, sagittal T2-weighted FS FSE, sagittal T1-weighted FSE, and axial T2-weighted FSE. COMPARISON: None FINDINGS: There is 2 degrees dextrocurvature of lumbar spine. There is mild chronic anterior wedging of T11 and T12 vertebral bodies. There is mildly decreased disc height at L1-L2, L2-L3, L3-L4, and L4 -L5 and moderately decreased disc height at L5-S1. There is ligamentum flavum hypertrophy at the disc levels in lumbar spine. The distal spinal cord signal intensity is normal. The conus medullaris is a t L1. The following disc levels are specifically discussed: L1-L2: The disc is bulging. There is moderate bilateral facet joint osteoarthritis. There is mild kiera ateral neural foraminal stenosis. There is mild central canal stenosis. L2-L3: The disc is bulging with superimposed central extrusion. There is severe bilateral facet joint osteoarthritis. There is mild bilateral neural foraminal stenosis. There is mild central canal steno sis. L3-L4: The disc is bulging and has an annular fissure. There is severe bilateral facet joint osteoart hritis. There is mild left neural foraminal stenosis. There is mild central canal stenosis. L4-L5: The disc is bulging and has an annular fissure. There is severe bilateral facet joint osteoart hritis with synovial cyst on the left. There is mild bilateral neural foraminal stenosis. There is mo derate central canal stenosis. L5-S1: The disc is bulging and has an annular fissure. There is moderate bilateral facet joint osteoa rthritis. There is mild bilateral neural foraminal stenosis. There is mild central canal stenosis. IMPRESSION: 1. Moderate lumbar spondylosis. Reviewed, dictated and finalized at location A. AD [employer]ER [employer]
== END 2022-12-15 16:20 | disposition home or self-care (01) ==
PROVIDERS: PCP Family Medicine Adolescent Medicine; Visit Provider Orthopaedic Surgery
DX: M47.816 Spondylosis without myelopathy or radiculopathy, lumbar region (principal)
CPT/HCPCS: 72148

== ENCOUNTER 2023-08-07 20:32 | Inpatient (IN) | payer OTHER, MEDICAID, SELFPAY ==
[2023-08-07] VITALS (25 sets, daily range): BP systolic 164–218; BP diastolic 67–99; PULSE 67–83; RESP 14–28; TEMP 36.6; O2SAT 95–100
--- NOTE | ~2023-08-07 | MR_ITS ---
EXAMINATION: MR brain/brain stem wo/w con DATE: 08/08/2023 09:57 INDICATION: acute CVA, abnormal CT scan/CTA head TECHNIQUE: Magnetic resonance imaging (MRI) of the brain and brainstem was performed without and with 20 mL MultiHance intravenous contrast. Sequences included sagittal and axial T1-weighted SE, axial d iffusion-weighted FS EPI ASSET, axial T2*-weighted GRE, axial T2-weighted FLAIR Propeller, and axial T2-weighted Propeller. Postcontrast axial and coronal T1-weighted SE was obtained. Apparent diffusion coefficient (ADC) maps were created. COMPARISON: CT brain and CTA brain carotid same date. FINDINGS: Small focus of acute restricted diffusion in the left hemisphere, in the posterior left frontal lobe. No MRI evidence of hemorrhage or extra-axial collection. No suspicious foci of susceptibility to sug gest prior intraparenchymal hemorrhage. Scattered foci of white matter hyperintensity, likely represe nting mild small vessel ischemic disease. Small focus of encephalomalacia at the junction of the left posterior parietal and occipital lobes. Small left temporal cyst, likely arachnoid cyst. No evidence of advanced or lobar predominant parenchymal volume loss. The basilar cisterns are patent. Flow void s are preserved. Paranasal sinuses are within normal limits. Globes and orbital contents are within n ormal limits. No abnormal enhancing lesion. IMPRESSION: Small acute cortical infarct in the left posterior frontal lobe. Small focus of encephalomalacia at the junction of the left posterior parietal and occipital lobes, p ossible old infarct. No acute diffusion restriction to suggest infarct in the right cerebellum. Reviewed, dictated and finalized at location K. IMPRESSION: Small acute cortical infarct in the left posterior frontal lobe. Small focus of encephalomalacia at the junction of the left posterior parietal and occipital lobes, possible old infarct. No acute diffusion restriction to suggest infarct in the right cerebellum.
--- NOTE | ~2023-08-07 | CT_ITS ---
EXAMINATION: CT brain wo con INDICATION: Slurred speech COMPARISON: None TECHNIQUE: Standard unenhanced head CT. The dose-length product (DLP) was 681.00 mGy-cm. The mA was a djusted according to patient size. Iterative reconstruction technique was employed. FINDINGS: There is a subtle area of hypoattenuation and loss of solomon-white differentiation in the lef t parietal lobe No intracranial hemorrhage or abnormal mass lesion. The ventricles are normal. No abn ormal mass effect or midline shift. The basal cisterns are patent. There appears to be a small arach noid cyst in the left temporal fossa. The orbits are normal. The paranasal sinuses, mastoids and calv arium are normal. IMPRESSION: 1. Subtle area of low-attenuation and loss of solomon-white differentiation in the left parietal lobe, w hich could reflect early infarct. As per stroke protocol, I called these results to the Emergency Department, and discussed with Dr. Ciera Byrd MD at 2055 hours on 08/07/2023. Reviewed, dictated and finalized at location F. IMPRESSION: 1. Subtle area of low-attenuation and loss of solomon-white differentiation in the left parietal lobe, which could reflect early infarct. As per stroke protocol, I called these results to the Emergency Department, and discussed with Dr. Santiago Byrd MD at 2055 hours on 08/07/2023.
--- NOTE | ~2023-08-07 | XR_ITS ---
EXAMINATION: XR chest 1V portable INDICATION: Altered mental status TECHNIQUE: Portable AP chest at 2120 hours COMPARISON: 07/06/2021 FINDINGS: The lungs are free of acute opacities. No pleural effusion or pneumothorax. The cardiomedia stinal silhouette is normal. IMPRESSION: 1. No acute cardiopulmonary abnormality. Reviewed, dictated and finalized at location F.
--- NOTE | ~2023-08-07 | CT_ITS ---
EXAMINATION: CTA brain carotid DATE: 08/07/2023 20:53 INDICATION: Slurred speech TECHNIQUE: Computed tomographic angiography (CTA) of the head was performed with 100 mL Omnipaque-350 intravenous contrast. CTA of the neck was performed with intravenous contrast. The dose-length produ ct was 1096.23 mGy-cm. Maximum intensity projection and volume rendered 3D-reconstructions were creat ed by the technologist on a separate workstation. Automated exposure control and iterative reconstruc tion technique were employed. COMPARISON: Noncontrast CT from today. FINDINGS: HEAD CTA: Again noted is a small area of low-attenuation and loss of solomon-white differentiation in th e left parietal lobe. There is no intracranial hemorrhage or abnormal mass lesion. The ventricles are normal. There is no abnormal mass effect or midline shift. The basal cisterns are patent. The orbits are normal. The paranasal sinuses, mastoids and calvarium are normal. There is hypoperfusion of the right cerebellum compared to the left There is no significant stenosis of the basilar artery or posterior cerebral arteries. There is no significant stenosis of the intracr anial internal carotid arteries or the anterior or middle cerebral arteries. The anterior communicati ng artery and right posterior communicating arteries are hypoplastic. There is no aneurysm. NECK CTA: The thyroid gland is unremarkable. The submandibular and parotid glands are symmetric. Ther e is no lymphadenopathy. There are no masses identified. The airway is unremarkable. The superior med iastinum is unremarkable. There is mild cervical spondylosis. There is 0% stenosis of the proximal right internal carotid artery relative to normal distal artery l umen diameter (NASCET criteria). There is 0% stenosis of the proximal left internal carotid artery re lative to normal distal artery lumen diameter. IMPRESSION: 1. Possible early, small left parietal infarct. Hypoperfusion of the right cerebellum compared to the left. 2. 0% stenosis of the proximal right internal carotid artery relative to normal distal artery lumen d iameter (NASCET criteria). 3. 0% stenosis of the proximal left internal carotid artery relative to normal distal artery lumen di ameter. Reviewed, dictated and finalized at location F. IMPRESSION: 1. Possible early, small left parietal infarct. Hypoperfusion of the right cere bellum compared to the left. 2. 0% stenosis of the proximal right internal carotid artery relative to normal distal artery lumen diameter (NASCET criteria). 3. 0% stenosis of the proximal left internal carotid artery relative to normal distal artery lumen diameter.
--- NOTE | 2023-08-07 20:33 | ECG_ITS ---
Measurements Intervals [place] Rate: 83 P: 66 MO: 183 QRS: -24 QRSD: 82 T: 43 QT: 354 QTc: 416 Interpretive Statements SINUS RHYTHM BORDERLINE ST ABNORMALITY- ANTEROLATERAL LEADS BASELINE ARTIFACT- I, II, III, AVR, AVL, AVF, V1-V6 BORDERLINE ECG COMPARED TO ECG 07/06/2021 21:25:06 SINUS RHYTHM NOW PRESENT Electronically Signed On 08-08-2023 8:07:13 CDT by Elder Mchugh D.O.
--- NOTE | 2023-08-07 20:37 | ED.NEUROSD ---
HPI - Neuro Symptoms/Deficit General Chief Complaint: Suspected CVA Stated Complaint: CVA Time Seen by Provider: 08/07/23 20:35 History of Present Illness HPI Narrative: This is a 63-year-old female, past history of hypertension and diabetes, brought in by EMS for suspected stroke. EMS reports the patient's daughter noted at approximately 6:30 PM that the patient had trouble speaking. On EMS's arrival, they noted slight right sided facial droop with smiling as well as slightly slurred speech. The patient has difficulty speaking though denies chest pain pain, difficulty breathing or abdominal pain. Related Data Home Medications Medication Instructions Recorded Confirmed famotidine 20 mg tablet 20 mg PO DAILY 08/08/23 08/08/23 gabapentin 300 mg capsule 900 mg PO HS 08/08/23 08/08/23 hydroxyzine HCl 25 mg tablet 25 mg PO HS 08/08/23 08/08/23 metoprolol tartrate 100 mg tablet 150 mg PO BID 08/08/23 08/08/23 Allergies Allergy/AdvReac Type Severity Reaction Status Date / Time codeine Allergy Intermediate RASH, Verified 08/08/23 00:38 DIFFICULTY BREATHING IRMA Inhibitors AdvReac Unknown cough Verified 08/08/23 00:38 Review of Systems Review of Systems: CONSTITUTIONAL: Denies fever, chills, or sweats. CARDIOVASCULAR: Denies chest pain, palpitations, or edema. RESPIRATORY: Denies cough or dyspnea. GASTROINTESTINAL: Denies abdominal pain, nausea, vomiting, or diarrhea. GENITOURINARY: Denies dysuria or hematuria. SKIN: Denies rash or itching. MUSCULOSKELETAL: Denies back pain, joint pain, or myalgia. NEUROLOGIC: Slurred speech, difficulty with word finding denies headache, numbness, dizziness, or weakness. PSYCHIATRIC: Denies anxiety or depression. [facility] Past Medical History Medical History Acute respiratory failure with hypoxia COVID-19 History of stress test Age 20+ Hyperlipidemia Hypertension Pure hypercholesterolemia, unspecified Type 2 diabetes mellitus with diabetic polyneuropathy Surgical History Surgical History History of ankle surgery History of appendectomy History of History of cholecystectomy History of tonsillectomy Family History Family History Mother Diabetes mellitus Hypertension Cerebrovascular accident Father Heart disease Hypertension Sibling Depression Liver cancer Other Breast cancer Social History Social History Smoking status: Never smoker Second hand tobacco smoke exposure: Yes Alcohol intake: never Substance use: never Substance use type: does not use Lack of Transportation: No Lack of Food: Often True Current Housing: I Have Housing Concerned About Future Housing: No Difficulty Paying Gas/Electric Bills: No Difficulty Paying for Meds: YES Currently Unemployed: No Education: Trade/Vocational Certificate Difficulty w/ Childcare or Family Care: No Living arrangements: with family Occupation/Education: occupation Gender identity (if verbalized by the patient): Female Sexual Orientation (if Verbalized by the Patient): Straight or Heterosexual Spiritual care concerns: No Agree to blood products: Yes Exam Narrative: GENERAL: Well-developed, well-nourished, and in no acute distress. HEAD: Normocephalic, atraumatic. EYES: PERRLA. Mild right-sided gaze palsy noted. Otherwise extraocular muscles are intact ENT: Nares clear, no rhinorrhea or epistaxis. Mucous membranes moist. Oropharynx without tonsillar hypertrophy exudate or other lesions. NECK: Supple. No adenopathy or masses. No carotid bruits or JVD CHEST: Clear to auscultation. No respiratory distress. No wheezes rales or rhonchi HEART: Regular rate and rhythm. No murmur heard. Normal peripheral pulses. ABDOMEN: Soft, nontender, nondistended
[2023-08-07 20:43] LABS: Basophils Absolute Auto 0.1 K/mm3 (0.0-0.1); Basophils Percent Auto 0.5 % (0.2-1.2); Eosinophils Absolute Auto 0.2 K/mm3 (0-0.3); Eosinophils Percent Auto 1.8 % (0-4.4); Hematocrit 40.2 % (37.0-47.0); Hemoglobin 12.7 g/dL (12.0-15.0); Immature Granulocyte Absolute 0.03 K/mm3 (0.00-0.031); Immature Granulocyte Percent A 0.3 % (0-0.5); Lymphocytes Absolute Auto 2.66 K/mm3 (0.9-3.2); Lymphocytes Percent Auto 26.8 % (18.3-44.2); Mean Corpuscular HGB Conc 31.6 g/dl (32-36); Mean Corpuscular Hemoglobin 28.5 pg (26-34); Mean Corpuscular Volume 90.3 fl (80-100); Mean Platelet Volume 9.4 fl (7.4-10.4); Monocytes Absolute Auto 0.9 K/mm3 (0.1-0.6); Monocytes Percent Auto 8.7 % (2.6-8.5); Neutrophils Absolute Auto 6.2 K/mm3 (1.3-6.7); Neutrophils Percent Auto 61.9 % (45.5-73.1); Platelet Count Result 309 k/mm3 (150-375); Red Blood Count 4.45 M/mm3 (4.2-5.4); Red Cell Distribution Width 13.3 % (11.5-14.5); White Blood Count 9.9 K/mm3 (4.5-10.0)
[2023-08-07 20:44] LABS: Estimated Glomerular Filt Rate > 60
[2023-08-07 20:52] LABS: Alanine Aminotransferase 16 U/L (6-35); Albumin Level 4.3 g/dL (3.5-5.1); Alkaline Phosphatase 92 U/L (38-126); Anion Gap 8 mmol/L (8-16); Aspartate Amino Transferase 25 U/L (14-36); Bilirubin,Total 0.9 mg/dL (0.2-1.3); Blood Urea Nitrogen 14 mg/dL (7-17); Calcium 9.3 mg/dL (8.4-10.2); Carbon Dioxide 25 mmol/L (22-30); Chloride 106 mmol/L (98-107); Estimated Glomerular Filt Rate > 60; Glucose 129 mg/dL (65-110); Potassium 4.3 mmol/L (3.4-5.0); Sodium 139 mmol/L (137-145)
[2023-08-07 20:54] LABS: Prothrombin Time 13.4 Seconds (11.1-14.7)
[2023-08-07 20:55] LABS: Partial Thromboplastin Time 28.5 SECONDS (22.3-36.8)
[2023-08-07 21:04] LABS: Troponin I < 0.012 ng/mL (0.000-0.034)
[2023-08-07 21:37] LABS: Appearance Urine Clear (Clear); Bacteria Urine None Seen /hpf; Bilirubin Urine Negative (Negative); Blood Urine Negative (Negative); Color Urine Yellow (Yellow); Glucose Urine UA Negative (Negative); Ketones Urine Negative (Negative); Leukocyte Esterase Ur 2+ LEU/UL (Negative); Nitrate Urine Negative (Negative); Non Pathogenic Casts 0-2; Protein Urine Negative (Negative); RBC Urine 0-2 /hpf (0-2); Specific Grav Ur 1.018 (1.001-1.035); Squamous Epithelial Cell Urine None seen /hpf (Few); WBC Urine 21-50 /hpf; pH Urine 6.5 (5.0-9.0)
[2023-08-07 21:55] LABS: Add Urine Microscopic? YES
[2023-08-07 22:26] LABS: Barbiturate Screen Urine Negative (Negative); Benzodiazepines Screen Urine Negative (Negative)
[2023-08-07 23:05] LABS: Amphetamine Screen Urine Negative (Negative); Cannabinoid Screen Urine Negative (Negative); Cocaine Screen Urine Negative (Negative); Methadone Screen Urine Negative (Negative); Opiate Screen Urine Negative (Negative); Phencyclidine Screen Urine Negative (Negative)
--- NOTE | 2023-08-07 23:30 | PC.NURSE ---
This RN took patient report from PASQUALE Crowley. This RN assumed care of patient.
--- NOTE | 2023-08-07 23:35 | PM.IMHP ---
H&P: HPI History of Present Illness Date/Time: 08/07/23 23:35 Chief Complaint: Patient brought by EMS to the ER for evaluation of stroke-like symptoms Narrative: She is a pleasant 63 years old morbidly obese white female with chronic medical issues who was found by family at around 6:30 p.m. to have trouble speaking and she was not acting her own self. Family got concerned, EMS was called and patient was evaluated and found to have a right-sided facial droop as well as the slurred speech with mild weakness on the right side. Patient brought to the ER for evaluation. Code stroke activated. Patient was found to has subtle areas of low attenuation and loss of solomon-white differentiation in the left parietal lobe on head CT and CTA consistent with evolving stroke. Local and [facility] neurologists were consulted who both determined that thrombolytics/tPA is contraindicated at this time given changes for early left parietal infarct. I saw and evaluated the patient at the bedside. Her right-sided weakness is slowly improving but she still continues to have a slurred voice.She is being admitted for medical management, close monitoring and neurology evaluation workup in am. Review of Systems Review of Systems: She denies any chest pain, palpitation, fever rigor chills, nausea vomiting, abdominal pain or loss of consciousness. All systems reviewed & are unremarkable except as noted in HPI and below PMFSH Past Medical History Medical History Acute respiratory failure with hypoxia COVID-19 History of stress test Age 20+ Hyperlipidemia Hypertension Pure hypercholesterolemia, unspecified Type 2 diabetes mellitus with diabetic polyneuropathy Surgical History Surgical History History of ankle surgery History of appendectomy History of History of cholecystectomy History of tonsillectomy Family History Family History Mother Diabetes mellitus Hypertension Cerebrovascular accident Father Heart disease Hypertension Sibling Depression Liver cancer Other Breast cancer Social History Social History Smoking status: Never smoker Second hand tobacco smoke exposure: Yes Alcohol intake: never Substance use: never Substance use type: does not use Lack of Transportation: No Lack of Food: Often True Current Housing: I Have Housing Concerned About Future Housing: No Difficulty Paying Gas/Electric Bills: No Difficulty Paying for Meds: YES Currently Unemployed: No Education: Trade/Vocational Certificate Difficulty w/ Childcare or Family Care: No Living arrangements: with family Occupation/Education: occupation Gender identity (if verbalized by the patient): Female Sexual Orientation (if Verbalized by the Patient): Straight or Heterosexual Spiritual care concerns: No Agree to blood products: Yes Meds Home Medications and Allergies Home Medications Medication Instructions Recorded Confirmed Type lisinopril 20 mg tablet 20 mg PO DAILY #90 tabs 12/04/22 08/08/23 Rx blood sugar diagnostic (OneTouch #200 ea 02/01/23 08/08/23 Rx Ultra Test strips) pen needle, diabetic 32 gauge x #200 ea 02/01/23 08/08/23 Rx 5/32 (Easy Comfort Pen [place]) diclofenac sodium 75 mg See Rx Instructions .Route 02/08/23 08/08/23 Rx tablet,delayed release .COMPLEX #60 tabs metformin 1,000 mg tablet 1,000 mg PO BID #180 tabs 05/26/23 08/08/23 Rx tramadol 50 mg tablet 50 mg PO Q6H PRN pain #40 tabs 07/01/23 08/08/23 Rx atorvastatin 40 mg tablet 40 mg PO DAILY #90 tabs 07/08/23 08/08/23 Rx famotidine 20 mg tablet 20 mg PO DAILY 08/08/23 08/08/23 History gabapentin 300 mg capsule 300 mg PO TID 08/08/23 08/08/23 History metoprolol tartrate 100 mg tablet 1.5 mg PO BID 08/08/23 08/08/23 History
[2023-08-08] VITALS (17 sets, daily range): BP systolic 144–187; BP diastolic 38–75; PULSE 53–81; RESP 16–24; TEMP 36.1–36.9; O2SAT 95–99; BMI 43.4
--- NOTE | 2023-08-08 | ECHO_ITS ---
Patient Info Name: Laila Gamble Age: 63 years : 1960 Gender: Female Ht: 65 in Wt: 258 lbs BSA: 2.38 m2 HR: 70 bpm BP: 162 / 62 mmHg Heart Rhythm: Sinus Rhythm Technical Quality: Good Exam Date: 08/08/2023 11:47 AM Exam Location: [facility] Card Pulmonary Patient Status: Inpatient Admit Date: 08/07/2023 Staff Ordering Physician: Ashish Mobley MD Leaf Coverer: Aldo Galeas RDCS Attending Provider: Humberto Chavez MD Exam Type: CA echo dop bubble study w con Study Info Indications - CVA Complete two-dimentional, color flow and Doppler transthoracic echocardiogram is performed with agitated saline and with contrast to opacify the left ventricle and to improve the delineation of the left ventricle endocardial borders. Contrast/Agitated Saline Contrast/Ag. Saline: Definity Amount: 3.00 ml Summary 1. Technically challenging exam because of obesity/definity contrast utilized. 2. Left ventricular hypertrophy with hyperdynamic appearing systolic function. 3. Left atrial enlargement. 4. Saline contrast injection demonstrates no intracardiac shunt. 5. Normal sinus rhythm. 6. No apparent cardioembolic source was identified. Left Ventricle Left ventricular chamber dimension is normal. Left ventricular systolic function is hyperdynamic, estimated at >70%. There is moderate concentric increased left ventricular wall thickness. The left ventricular diastolic function is grade I diastolic dysfunction. Right Ventricle Right ventricular chamber dimension is normal. Left Atria Left atrial chamber dimension is moderately enlarged. Right Atria Right atrial chamber dimension is normal. Atrial Septum Intact interatrial septum visualized by agitated saline imaging. Aortic Valve The aortic valve is trileaflet. There is mild aortic valve sclerosis. Pulmonic Valve The pulmonic valve is not well visualized. Mitral Valve The mitral valve has normal leaflets. Tricuspid Valve The tricuspid valve leaflets are not well visualized. Pericardium/Pleural The pericardium appears normal. Aorta The aortic root size at the sinus of Valsalva is normal. Left Ventricular Outflow Tract Name Value Normal LVOT 2D LVOT Diameter 2.2 cm LVOT Doppler LVOT Peak Gradient 5 mmHg LVOT Mean Gradient 3 mmHg LVOT VTI 39 cm LVOT VTI/AV VTI Ratio 1.0 LVOT Stroke Volume 155 ml LVOT CO 8.2 l/min LVOT CI 3.4 l/min/m2 Pulmonic Valve Name Value Normal RVOT Doppler RVOT Peak Gradient 5 mmHg PV Doppler PV Peak Gradient 6 mmHg Mitral Valve
[2023-08-08 00:49] LABS: Glucose Point of Care 146 mg/dl (65-105)
--- NOTE | 2023-08-08 01:05 | PC.NURSE ---
This patient, Laila Gamble, was admitted to IMU Room 206-02. Patient/family oriented to hospital policies and general routines including ID bracelet, bed and alarms, visiting hours, pain management, procedures, bathroom and other care routines, personal items, smoking policy, room service/diet, and visiting hours. Information on how to activate the Rapid Response Team has been discussed. Patient/Family are encouraged to report perceived risks to care and to ask questions if they do not understand what they are told or what they should do.
[2023-08-08] MEDS: SODIUM CHLORIDE 0.9% IV 1,000 ML 75 ML IV CONT (02:07)
[2023-08-08 04:58] LABS: Basophils Absolute Auto 0.1 K/mm3 (0.0-0.1); Basophils Percent Auto 0.7 % (0.2-1.2); Eosinophils Absolute Auto 0.1 K/mm3 (0-0.3); Eosinophils Percent Auto 1.6 % (0-4.4); Hematocrit 38.1 % (37.0-47.0); Hemoglobin 12.1 g/dL (12.0-15.0); Immature Granulocyte Absolute 0.02 K/mm3 (0.00-0.031); Immature Granulocyte Percent A 0.2 % (0-0.5); Immature Platelet Fraction Pct 3.6 % (0.9-11.2); Lymphocytes Absolute Auto 2.75 K/mm3 (0.9-3.2); Lymphocytes Percent Auto 31.4 % (18.3-44.2); Mean Corpuscular HGB Conc 31.8 g/dl (32-36); Mean Corpuscular Hemoglobin 29.4 pg (26-34); Mean Corpuscular Volume 92.5 fl (80-100); Mean Platelet Volume 10.8 fl (7.4-10.4); Monocytes Absolute Auto 0.7 K/mm3 (0.1-0.6); Monocytes Percent Auto 7.8 % (2.6-8.5); Neutrophils Absolute Auto 5.1 K/mm3 (1.3-6.7); Neutrophils Percent Auto 58.3 % (45.5-73.1); Platelet Count Result 251 k/mm3 (150-375); Red Blood Count 4.12 M/mm3 (4.2-5.4); Red Cell Distribution Width 13.5 % (11.5-14.5); White Blood Count 8.8 K/mm3 (4.5-10.0)
[2023-08-08 04:59] LABS: Anion Gap 5 mmol/L (8-16); Blood Urea Nitrogen 11 mg/dL (7-17); Calcium 9.1 mg/dL (8.4-10.2); Carbon Dioxide 27 mmol/L (22-30); Chloride 107 mmol/L (98-107); Estimated CRCL calculation 92 ml/min; Estimated Glomerular Filt Rate > 60; Glucose 132 mg/dL (65-110); Magnesium 1.8 mg/dL (1.6-2.3); Phosphorus 3.7 mg/dL (2.5-4.5); Potassium 4.4 mmol/L (3.4-5.0); Sodium 139 mmol/L (137-145)
[2023-08-08 07:49] LABS: Glucose Point of Care 143 mg/dl (65-105)
[2023-08-08 08:33] LABS: Cholesterol 135 mg/dL (0-200); HDL Direct 32 mg/dL; Triglycerides 103 mg/dL (<150)
[2023-08-08 08:44] LABS: LDL Cholesterol Direct 84 mg/dL
--- NOTE | 2023-08-08 08:54 | PM.IMPN ---
Progress Note: A&P Assessment and Plan (1) Acute CVA (cerebrovascular accident): Code(s): I63.9 - Cerebral infarction, unspecified Status: Acute Assessment and Plan: Patient brought in by EMS about 2 hours from when the symptoms were initially noted. Initial NIH score was 4. Case was discussed with U neurology. Head and neck CTA showed possible early, small left parietal infarct as well as hypoperfusion of the right cerebellum. CT the brain showed subtle area of low attenuation and loss of solomon-white differentiation in the left parietal lobe. Given these CT scan findings, U Neurology advised against thrombolytics. Patient was admitted for further care. She was continued on her Lipitor. Will add aspirin. Neurology has been consulted. MRI of the brain has been ordered. Will check echocardiogram with bubble study. Check A1c and lipid panel. No evidence of atrial fibrillation on telemetry. Speech therapy, physical and occupational therapy has been ordered. Allow for permissive hypertension. Further recommendation as course dictates. (2) Aphasia: Code(s): R47.01 - Aphasia Status: Acute Assessment and Plan: Patient is able to speak though her speech is halting. The facial droop appears have resolved. Therapy has been ordered. (3) Pure hypercholesterolemia, unspecified: Code(s): E78.00 - Pure hypercholesterolemia, unspecified Status: Acute Assessment and Plan: LFTs are normal. Continue Lipitor. Lipid panel ordered. (4) Type 2 diabetes mellitus with diabetic polyneuropathy: Code(s): E11.42 - Type 2 diabetes mellitus with diabetic polyneuropathy Status: Acute Assessment and Plan: A1c 6.4. The patient's blood glucose was reviewed on 08/08 Glucose remains well controlled. Continue AccuCheks covering with sliding scale. Hypoglycemia protocol available as needed. Continue to monitor (5) Hypertension: Code(s): I10 - Essential (primary) hypertension Status: Acute Assessment and Plan: Patient's blood pressure was reviewed on 08/08 Blood pressure remains elevated at times. Allow for permissive hypertension. Will continue to monitor. (6) B12 deficiency: Code(s): E53.8 - Deficiency of other specified B group vitamins Status: Acute Assessment and Plan: B12 level 237. B12 deficiency may contribute to her neurologic symptoms although she not detract from the fact she has had a CVA. B12 injection IM once. Start oral replacement. (7) Morbid obesity with BMI of 40.0-44.9, adult: Code(s): E66.01 - Morbid (severe) obesity due to excess calories; Z68.41 - Body mass index [BMI] 40.0-44.9, adult Status: Acute Assessment and Plan: BMI 43. Probably contributing to her other medical problems. Healthy lifestyle was encouraged. Plan DVT prophylaxis -SCDs Code status -full Subjective Date/time seen: 08/08/23 08:54 Interval history: 63yo female with DM, HTN and HLD here for slurred speech and found to have CVA No chest pain or shortness of breath. No abdominal pain. No nausea or vomiting. She does complain of slurred speech and word-finding problem. She denies weakness in her extremities Exam Narrative: AF 98.1 162/62 70 24 97% ra Gen - NARD Chest - CTA bilaterally, nml RR CV - RRR S1/S2. Telemetry showing no significant dysrhythmia Abd -soft. Obese. Nontender. Ext - No pedal edema Neuro -alert and appropriate. No focal weakness. Heel to cedeno intact. Word-finding problems. Speech is clear but slow and halting Psych - Nml mood and affect Skin - Warm and dry Objective Data Vital Signs Vital Signs: Vital Signs - 24 hr 08/07/23 20:50 08/07/23 20:52 08/07/23 20:54 Temperature 97.8 F Pulse Rate 82 82 83 Respiratory Rate 19 25 H 26 H Blood Pressure 218/78 H 218/78 H Pulse Oximetry 95 95 96 Oxygen Delivery Room Air 08/07/23 21:00
[2023-08-08 08:57] LABS: Hemoglobin A1C 6.4 % (<5.7)
[2023-08-08] MEDS: CYANOCOBALAMIN INJ 1,000 MCG/ML VIAL 1000 MCG IM (10:08)
--- NOTE | 2023-08-08 10:13 | WPDNEURCNPN ---
Assessment and Plan Assessment and plan (1) Acute CVA (cerebrovascular accident): Code(s): I63.9 - Cerebral infarction, unspecified Status: Acute (2) Aphasia: Code(s): R47.01 - Aphasia Status: Acute (3) Weakness on right side of face: Code(s): R29.810 - Facial weakness Status: Acute (4) Pure hypercholesterolemia, unspecified: Code(s): E78.00 - Pure hypercholesterolemia, unspecified Status: Acute (5) Type 2 diabetes mellitus with diabetic polyneuropathy: Code(s): E11.42 - Type 2 diabetes mellitus with diabetic polyneuropathy Status: Acute (6) Hypertension: Code(s): I10 - Essential (primary) hypertension Status: Acute (7) Morbid obesity with BMI of 40.0-44.9, adult: Code(s): E66.01 - Morbid (severe) obesity due to excess calories; Z68.41 - Body mass index [BMI] 40.0-44.9, adult Status: Acute Plan Laila Gamble is a 63 year old female with a history of obesity, hypertension, diabetes, and hyperlipidemia presenting due to concerns for stroke due to the symptoms of right facial droop and changes in speech. MRI brain shows cortical, wedge-shaped acute infarct in the left parietal lobe. Shape and location of the stroke is concerning for embolic etiology from more proximal source. She has no evidence of extracranial or intracranial atherosclerosis. She was very hypertensive on admission, but typically this would lead to subcortical/lacunar stroke, which is not consistent with MR findings. - Continue Aspirin 81mg daily - Without evidence of extracranial/intracranial stenosis, no indication for Plavix - Continue Lipitor 40mg daily - She will need surface echocardiogram with bubble study -- if this is unrevealing, she will need more extensive cardiac testing such as MICHAEL, Loop/Holter - Will check LDL and A1c levels - Can slowly start reducing blood pressure, with ultimate goal <130/80 Consult date: 08/08/23 Reason for consult: Acute stroke HPI: Laila Gamble is a 63 year old female with a history of obesity, hypertension, diabetes, and hyperlipidemia presenting due to concerns for stroke. On day of presentation, 08/07/23, around 1830 patient's daughter noted that patient was having difficulty speaking. EMS was called and they noted right facial droop and slurring of the speech. When she presented to [facility] ED her BP was as high as 218/78. Her NIH score was 4. CT head showed small hypodensity in the left parietal regions concerning for subacute infarct. CTA brain/carotid showed no significant large vessel atherosclerosis and no evidence of occlusion (although there is mention of hypoperfusion of R cerebellum compared to the left). Patient was still within window for tPA. ER physician discussed case with Dr. Chavez at [facility] and it was decided that patient was not a candidate for thrombolytic due to the early changes on CT suggesting subacute stroke. She was started on aspirin 81mg daily. She is already on Lipitor 40mg daily. EKG showed sinus rhythm. Most recent documented blood pressure is in the 160s systolic. MRI brain has been done this morning. On my preliminary read there is a wedge shaped acute infarct in the left parietal region. Review of Systems Constitutional: Constitutional: Denies chills, Denies fever(s) and Denies weight loss Eyes: Eyes: Denies diplopia and Denies loss of vision ENT: Denies dizziness, Denies hearing loss and Denies tinnitus Cardiovascular: Cardiovascular: Denies chest pain, Denies syncope and Denies dyspnea Respiratory: Respiratory: Denies cough, Denies dyspnea and Denies wheezing Gastrointestinal: Gastrointestinal: Denies abdominal pain, Denies change in bowel habits and Denies vomiting Genitourinary: Genitourinary: Denies urinary incontinence Musculoskeletal: Musculoskeletal: Reports arthralgias and Denies joint swelling Integumentary/Breasts: Skin/Breast: Denies new lesions and Denies rash Neurologic: Reports as p
[2023-08-08 11:38] LABS: Glucose Point of Care 141 mg/dl (65-105)
[2023-08-08] MEDS: PERFLUTREN LIPID MICROSPHERES 1.5 ML VIAL DILUTED TO 10 ML TOTAL VOLUME IV PUSH ×2 (11:50→12:10)
--- NOTE | 2023-08-08 12:14 | PCSTNOTE ---
Communication evaluation completed, reading and writing deferred. Intelligibility 90% for conversational speech with unfamiliar listener. Auditory comprehension mildly impaired, verbal expression moderately impaired. Speech therapy is recommended to address these impairments. Bedside swallowing evaluation completed. Cursory oral peripheral examination results within functional limits. Trials of thin liquid by spoon, cup and straw were within normal limits. Trials of pureed consistency by spoon and solid (jelly cracker) within normal limits. No signs of aspiration noted. Based on these results no speech therapy for swallowing is recommended, and regular diet with thin liquids is recommended. Please note that silent aspiration cannot be ruled out at bedside and can be evaluated with a modified barium swallow study. Thank you for the referral of this patient.
[2023-08-08] MEDS: DICLOFENAC SOD 75 MG TABLET.EC BY MOUTH ×2 (12:22→20:26)
[2023-08-08] MEDS: METOPROLOL TARTRATE 50 MG TAB 150 MG PO (12:22)
[2023-08-08] MEDS: ASPIRIN 81 MG CHEWABLE TABLET PO (12:22)
[2023-08-08] MEDS: lisinopriL 20 MG TABLET PO (12:23)
[2023-08-08] MEDS: FAMOTIDINE 20 MG TABLET PO (12:23)
[2023-08-08] MEDS: ATORVASTATIN 40 MG TABLET PO (12:23)
[2023-08-08] MEDS: CYANOCOBALAMIN 1,000 MCG TABLET 1000 MCG PO (12:23)
[2023-08-08 16:26] LABS: Glucose Point of Care 142 mg/dl (65-105)
[2023-08-08 19:43] LABS: Glucose Point of Care 136 mg/dl (65-105)
[2023-08-08] MEDS: GABAPENTIN 300 MG CAPSULE 900 MG PO (20:21)
[2023-08-08] MEDS: hydrOXYzine HCL 25 MG TABLET PO (20:25)
[2023-08-09] VITALS (18 sets, daily range): BP systolic 143–190; BP diastolic 61–78; PULSE 61–89; RESP 14–20; TEMP 36.2–37.1; O2SAT 92–99
[2023-08-09 04:39] LABS: Basophils Percent Auto 0.6 % (0.2-1.2); Eosinophils Absolute Auto 0.1 K/mm3 (0-0.3); Eosinophils Percent Auto 1.9 % (0-4.4); Hematocrit 36.9 % (37.0-47.0); Hemoglobin 11.8 g/dL (12.0-15.0); Immature Granulocyte Absolute 0.02 K/mm3 (0.00-0.031); Immature Granulocyte Percent A 0.3 % (0-0.5); Lymphocytes Absolute Auto 2.21 K/mm3 (0.9-3.2); Lymphocytes Percent Auto 32.9 % (18.3-44.2); Mean Corpuscular Hemoglobin 28.8 pg (26-34); Mean Platelet Volume 9.2 fl (7.4-10.4); Monocytes Absolute Auto 0.5 K/mm3 (0.1-0.6); Neutrophils Absolute Auto 3.8 K/mm3 (1.3-6.7); Neutrophils Percent Auto 56.3 % (45.5-73.1); Platelet Count Result 267 k/mm3 (150-375); Red Cell Distribution Width 13.3 % (11.5-14.5); White Blood Count 6.7 K/mm3 (4.5-10.0)
[2023-08-09 04:55] LABS: Anion Gap 5 mmol/L (8-16); Blood Urea Nitrogen 13 mg/dL (7-17); Calcium 9.3 mg/dL (8.4-10.2); Carbon Dioxide 27 mmol/L (22-30); Chloride 106 mmol/L (98-107); Estimated CRCL calculation 93 ml/min; Estimated Glomerular Filt Rate > 60; Glucose 130 mg/dL (65-110); Sodium 138 mmol/L (137-145)
[2023-08-09] MEDS: ACETAMINOPHEN 325 MG TABLET 650 MG PO (05:36)
--- NOTE | 2023-08-09 07:26 | PM.IMPN ---
Progress Note: A&P Assessment and Plan (1) Acute CVA (cerebrovascular accident): Code(s): I63.9 - Cerebral infarction, unspecified Status: Acute Assessment and Plan: Patient brought in by EMS about 2 hours from when the symptoms were initially noted. Initial NIH score was 4. Case was discussed with U neurology. Head and neck CTA showed possible early, small left parietal infarct as well as hypoperfusion of the right cerebellum. CT the brain showed subtle area of low attenuation and loss of solomon-white differentiation in the left parietal lobe. Given these CT scan findings, U Neurology advised against thrombolytics. Patient was admitted for further care. She was continued on her Lipitor. Aspirin was added. Neurology was consulted and appreciate their input. MRI of the brain showing small acute cortical infarct in the left posterior frontal lobe and a small focus on encephalomalacia at the jct of left posterior parietal and occipital lobes. No acute cerebellum changes noted. Echocardiogram with bubble study was limited but EF 70%, Grade I diastolic dysfunction, moderate concentric LVH and intact septum. No evidence of atrial fibrillation on telemetry. Speech therapy, physical and occupational therapy has been ordered. Plan to add Norvasc to start to control BP. LDL 84. Advance Lipitor. MICHAEL recommended so will consult Cardiology. Patient will need to be set up for Loop at discharge. (2) Aphasia: Code(s): R47.01 - Aphasia Status: Acute Assessment and Plan: Patient is able to speak though her speech is halting. Therapy has been ordered. (3) Pure hypercholesterolemia, unspecified: Code(s): E78.00 - Pure hypercholesterolemia, unspecified Status: Acute Assessment and Plan: LFTs are normal. TC 135, TG 103, LDL 84, HDL 32. Advance Lipitor. (4) Type 2 diabetes mellitus with diabetic polyneuropathy: Code(s): E11.42 - Type 2 diabetes mellitus with diabetic polyneuropathy Status: Acute Assessment and Plan: A1c 6.4. The patient's blood glucose was reviewed on 08/09 Glucose remains well controlled. Continue AccuCheks covering with sliding scale. Hypoglycemia protocol available as needed. Resume MetforminContinue to monitor (5) Hypertension: Code(s): I10 - Essential (primary) hypertension Status: Acute Assessment and Plan: Patient's blood pressure was reviewed on 08/09 Blood pressure remains elevated at times. Add Norvasc to start to bring down BP. Metoprolol dose has been cut back since admission. Advance if still needing BP support. Check Apnea link. Will continue to monitor. (6) B12 deficiency: Code(s): E53.8 - Deficiency of other specified B group vitamins Status: Acute Assessment and Plan: B12 level 237. B12 deficiency may contribute to her neurologic symptoms although she not detract from the fact she has had a CVA. B12 injection IM once. Start oral replacement. (7) Morbid obesity with BMI of 40.0-44.9, adult: Code(s): E66.01 - Morbid (severe) obesity due to excess calories; Z68.41 - Body mass index [BMI] 40.0-44.9, adult Status: Acute Assessment and Plan: BMI 43. Probably contributing to her other medical problems. Healthy lifestyle was encouraged. (8) UTI (urinary tract infection): Code(s): N39.0 - Urinary tract infection, site not specified Status: Acute Assessment and Plan: UA with2+ LE and 21-50 WBC but 100K colonies of GNB by UCx. Rocephin started on admission. BCx pending Continue Rocephin Follow up on UCx results Plan DVT prophylaxis -SCDs Code status -full Subjective Date/time seen: 08/09/23 07:26 Interval history: 63yo female with DM, HTN and HLD here for slurred speech and found to have CVA Headache last night but better this morning. No CP or SOB. No n/v. Slept okay. No hx of ANISH. Was walking to the BR yesterday
[2023-08-09 07:50] LABS: Glucose Point of Care 139 mg/dl (65-105)
[2023-08-09] MEDS: ASPIRIN 81 MG CHEWABLE TABLET PO (08:36)
[2023-08-09] MEDS: metFORMIN HCL 500 MG TABLET 1000 MG PO ×2 (08:37→16:14)
[2023-08-09] MEDS: METOPROLOL TARTRATE 50 MG TAB 100 MG PO ×2 (08:37→20:48)
[2023-08-09] MEDS: amLODIPine BESYLATE 5 MG TABLET PO ×2 (08:38→16:14)
[2023-08-09] MEDS: ATORVASTATIN 40 MG TABLET 80 MG PO (08:38)
[2023-08-09] MEDS: DICLOFENAC SOD 75 MG TABLET.EC BY MOUTH ×2 (08:38→20:48)
[2023-08-09] MEDS: CYANOCOBALAMIN 1,000 MCG TABLET 1000 MCG PO (08:38)
[2023-08-09] MEDS: FAMOTIDINE 20 MG TABLET PO (08:38)
[2023-08-09] MEDS: lisinopriL 20 MG TABLET PO (08:39)
[2023-08-09] MEDS: TOLNAFTATE 1% POWDER 45 GM BTL 1 APPLIC TOPICAL (08:40)
--- NOTE | 2023-08-09 10:57 | PM.CNCAR ---
Assessment and Plan Assessment and plan (1) Acute CVA (cerebrovascular accident): Code(s): I63.9 - Cerebral infarction, unspecified Status: Acute Plan 63-year-old lady with hypertension diabetes dyslipidemia who is also morbidly obese. She presented with acute left parietal CVA. Workup regarding the etiology of this has been unrevealing thus far. Consultants have requested esophageal ECHO and implantation of loop recorder. I will clearly be able to arrange for the loop recorder implant tomorrow. I will consult with anesthesia tomorrow to determine if we can arrange a time to perform a esophageal ECHO. Because of her morbid obesity it is my preference to have Anesthesia involved when the patient is sedated for LIZET James Maloney MD [facility] History of Present Illness History of Present Illness Consult date/time: 08/09/23 10:57 Reason For Visit: CVA Narrative: This is a very pleasant 63-year-old lady I am seeing today at the request of the hospitalist's and neurologists to perform a transesophageal echocardiogram and to implant a cardiac loop recorder. Patient is unknown to me prior to this encounter and reports no previous history of cardiac problems. She is a lady with chronic morbid obesity, hypertension diabetes and dyslipidemia. She presented to this hospital with symptoms of a facial droop and expressive aphasia and was found to have an acute left parietal stroke. Consultation was had with the stroke team at [facility] who felt she was not a candidate for thrombolytics therapy. She was admitted here and neurology consultation has also been obtained here. Transthoracic echocardiogram done yesterday and read by myself did not show any findings that would be suspicious for a cardioembolic source. Neck and head CTA does not demonstrate any evidence of cerebrovascular disease. Because of this lizet and loop recorder have been recommended and I am seeing the patient a for this reason in consultation. She understands this and does not have any questions after detailed discussion. Review of Systems Constitutional: Constitutional: Reports lethargy Eyes: Eyes: Reports no additional eye complaints ENT: Reports system reviewed and no additional complaints, except as documented Cardiovascular: Cardiovascular: Reports no additional cardiovascular complaints Respiratory: Respiratory: Reports no additional respiratory complaints Gastrointestinal: Gastrointestinal: Reports no additional gastrointestinal complaints Musculoskeletal: Musculoskeletal: Reports no additional musculoskeletal complaints Integumentary/Breasts: Skin/Breast: Reports system reviewed and no additional complaints, except as docu Neurologic: Reports as per HPI Endocrine: Endocrine: Reports no additional endocrine complaints Hematologic/Lymphatic: Hematologic/Lymphatic: Reports no additional hematologic/lymphatic complaints Allergic/Immunologic: Allergic/Immunologic: Reports no additional allergic/immunologic complaints PMFSH Past Medical History Medical History Acute respiratory failure with hypoxia COVID-19 History of stress test Age 20+ Hyperlipidemia Hypertension Pure hypercholesterolemia, unspecified Type 2 diabetes mellitus with diabetic polyneuropathy Surgical History Surgical History History of ankle surgery History of appendectomy History of History of cholecystectomy History of tonsillectomy Family History Family History Mother Diabetes mellitus Hypertension Cerebrovascular accident Father Heart disease Hypertension Sibling Depression Liver cancer Other Breast cancer Social History Social History Smoking status: Never smoker Second hand tobacco smoke exposure: Yes Shahab
[2023-08-09 11:21] LABS: Glucose Point of Care 153 mg/dl (65-105)
--- NOTE | 2023-08-09 15:17 | WPDNEUROPN ---
Progress Note: A&P Assessment and Plan (1) Weakness on right side of face: Code(s): R29.810 - Facial weakness Status: Acute (2) Acute CVA (cerebrovascular accident): Code(s): I63.9 - Cerebral infarction, unspecified Status: Acute (3) Aphasia: Code(s): R47.01 - Aphasia Status: Acute (4) Hypertension: Code(s): I10 - Essential (primary) hypertension Status: Acute (5) Morbid obesity with BMI of 40.0-44.9, adult: Code(s): E66.01 - Morbid (severe) obesity due to excess calories; Z68.41 - Body mass index [BMI] 40.0-44.9, adult Status: Acute (6) Type 2 diabetes mellitus with diabetic polyneuropathy: Code(s): E11.42 - Type 2 diabetes mellitus with diabetic polyneuropathy Status: Acute (7) Pure hypercholesterolemia, unspecified: Code(s): E78.00 - Pure hypercholesterolemia, unspecified Status: Acute Plan Laila Gamble is a 63 year old female with a history of obesity, hypertension, diabetes, and hyperlipidemia presenting due to concerns for stroke due to the symptoms of right facial droop and changes in speech. MRI brain shows cortical, wedge-shaped acute infarct in the left posterior frontal lobe. Shape and location of the stroke is concerning for embolic etiology from more proximal source. She has no evidence of extracranial or intracranial atherosclerosis. She was quite hypertensive on admission, but typically this would lead to subcortical/lacunar stroke, which is not consistent with MR findings. Surface echo showed evidence of left atrial enlargement but no other findings. - Continue Aspirin 81mg daily - Without evidence of extracranial/intracranial stenosis, no indication for Plavix - Increase Lipitor to 80mg daily - Cardiology has been consulted -- recommend MICHALE/Loop - Will check LDL and A1c levels - BP goal <130/80 Subjective Date/time seen: 08/09/23 15:17 Interval history: Laila Gamble is a 63 year old female with a history of obesity, hypertension, diabetes, and hyperlipidemia presenting due to concerns for stroke. On day of presentation, 08/07/23, around 1830 patient's daughter noted that patient was having difficulty speaking. EMS was called and they noted right facial droop and slurring of the speech. When she presented to [place] ED her BP was as high as 218/78. Her NIH score was 4. CT head showed small hypodensity in the left parietal regions concerning for subacute infarct. CTA brain/carotid showed no significant large vessel atherosclerosis and no evidence of occlusion (although there is mention of hypoperfusion of R cerebellum compared to the left). Patient was still within window for tPA. ER physician discussed case with Dr. Chavez at [facility] and it was decided that patient was not a candidate for thrombolytic due to the early changes on CT suggesting subacute stroke. She was started on aspirin 81mg daily. She is already on Lipitor 40mg daily. EKG showed sinus rhythm. Most recent documented blood pressure is in the 160s systolic. MRI brain has been done this morning. On my preliminary read there is a wedge shaped acute infarct in the left posterior frontal region. Surface echocardiogram was technically challenging but other than left atrial enlargement, no other significant findings were noted. Patient is doing well today. She denies any complaints. Cardiology has seen her and are coordinating MICHAEL/Loop. A1c is 6.4 and LDL is 84. Review of Systems Constitutional: Constitutional: Denies chills, Denies fever(s) and Denies weight loss Eyes: Eyes: Denies diplopia and Denies loss of vision ENT: Denies dizziness, Denies hearing loss and Denies tinnitus Cardiovascular: Cardiovascular: Denies chest pain, Denies syncope and Denies dyspnea Respiratory: Respiratory: Denies cough, Denies dyspnea and Denies wheezing Gastrointestinal: Gastrointestinal: Denies abdominal pain, Denies change in bowel habits and Denies vomiting Genitourinary:
[2023-08-09 16:35] LABS: Glucose Point of Care 139 mg/dl (65-105)
[2023-08-09] MEDS: hydrOXYzine HCL 25 MG TABLET PO (20:48)
[2023-08-09] MEDS: GABAPENTIN 300 MG CAPSULE 900 MG PO (20:48)
[2023-08-09 20:51] LABS: Glucose Point of Care 129 mg/dl (65-105)
[2023-08-10] VITALS (24 sets, daily range): BP systolic 140–185; BP diastolic 61–79; PULSE 0–78; RESP 15–27; TEMP 35.6–36.8; O2SAT 93–100
[2023-08-10 06:09] LABS: Glucose Point of Care 140 mg/dl (65-105)
[2023-08-10 07:59] LABS: Glucose Point of Care 145 mg/dl (65-105)
[2023-08-10] MEDS: CYANOCOBALAMIN 1,000 MCG TABLET 1000 MCG PO (08:57)
[2023-08-10] MEDS: METOPROLOL TARTRATE 50 MG TAB 100 MG PO ×2 (08:57→21:10)
[2023-08-10] MEDS: FAMOTIDINE 20 MG TABLET PO (08:58)
[2023-08-10] MEDS: ASPIRIN 81 MG CHEWABLE TABLET PO (08:58)
[2023-08-10] MEDS: ATORVASTATIN 40 MG TABLET 80 MG PO (08:58)
[2023-08-10] MEDS: amLODIPine BESYLATE 5 MG TABLET 10 MG PO (09:02)
[2023-08-10 09:07] LABS: Basophils Absolute Auto 0.1 K/mm3 (0.0-0.1); Basophils Percent Auto 0.9 % (0.2-1.2); Eosinophils Absolute Auto 0.1 K/mm3 (0-0.3); Eosinophils Percent Auto 1.7 % (0-4.4); Hematocrit 39.7 % (37.0-47.0); Hemoglobin 12.6 g/dL (12.0-15.0); Immature Granulocyte Percent A 1.6 % (0-0.5); Lymphocytes Absolute Auto 1.95 K/mm3 (0.9-3.2); Lymphocytes Percent Auto 30.5 % (18.3-44.2); Mean Corpuscular HGB Conc 31.7 g/dl (32-36); Mean Corpuscular Hemoglobin 28.6 pg (26-34); Mean Corpuscular Volume 90.2 fl (80-100); Mean Platelet Volume 9.1 fl (7.4-10.4); Monocytes Absolute Auto 0.7 K/mm3 (0.1-0.6); Monocytes Percent Auto 10.5 % (2.6-8.5); Neutrophils Absolute Auto 3.5 K/mm3 (1.3-6.7); Neutrophils Percent Auto 54.8 % (45.5-73.1); Platelet Count Result 300 k/mm3 (150-375); Red Cell Distribution Width 13.1 % (11.5-14.5); White Blood Count 6.4 K/mm3 (4.5-10.0)
[2023-08-10 09:09] LABS: Anion Gap 7 mmol/L (8-16); Blood Urea Nitrogen 16 mg/dL (7-17); Calcium 9.4 mg/dL (8.4-10.2); Carbon Dioxide 28 mmol/L (22-30); Chloride 104 mmol/L (98-107); Estimated CRCL calculation 107 ml/min; Estimated Glomerular Filt Rate > 60; Glucose 147 mg/dL (65-110); Potassium 4.7 mmol/L (3.4-5.0); Sodium 139 mmol/L (137-145)
--- NOTE | 2023-08-10 09:51 | PM.IMPN ---
Progress Note: A&P Assessment and Plan (1) Acute CVA (cerebrovascular accident): Code(s): I63.9 - Cerebral infarction, unspecified Status: Acute Assessment and Plan: Patient brought in by EMS for slurred speech. Initial NIH score was 4. Case was discussed with [facility]. Head and neck CTA showed possible early, small left parietal infarct as well as hypoperfusion of the right cerebellum. CT the brain showed subtle area of low attenuation and loss of solomon-white differentiation in the left parietal lobe. Given these CT scan findings, [facility] advised against thrombolytics. Patient was admitted for further care. She was continued on her Lipitor and advanced. Aspirin was added. Neurology was consulted and appreciate their input. MRI of the brain showing small acute cortical infarct in the left posterior frontal lobe and a small focus on encephalomalacia at the jct of left posterior parietal and occipital lobes. No acute cerebellum changes noted. Echocardiogram with bubble study was limited but EF 70%, Grade I diastolic dysfunction, moderate concentric LVH and intact septum. No evidence of atrial fibrillation on telemetry. Speech therapy, physical and occupational therapy has been ordered. Continue to advance medications to control BP. MICHAEL and Loop recorder recommended. Cardiology consulted and plan to have these performed today (2) Aphasia: Code(s): R47.01 - Aphasia Status: Acute Assessment and Plan: Patient is able to speak though her speech is halting. Therapy has been ordered. Symptoms are better (3) Pure hypercholesterolemia, unspecified: Code(s): E78.00 - Pure hypercholesterolemia, unspecified Status: Acute Assessment and Plan: LFTs are normal. TC 135, TG 103, LDL 84, HDL 32. Lipitor advnaced (4) Type 2 diabetes mellitus with diabetic polyneuropathy: Code(s): E11.42 - Type 2 diabetes mellitus with diabetic polyneuropathy Status: Acute Assessment and Plan: A1c 6.4. The patient's blood glucose was reviewed on 08/10 Glucose remains well controlled. Continue AccuCheks covering with sliding scale. Hypoglycemia protocol available as needed. Continue to monitor (5) Hypertension: Code(s): I10 - Essential (primary) hypertension Status: Acute Assessment and Plan: Patient's blood pressure was reviewed on 08/10 Blood pressure remains elevated at times. Norvasc added Metoprolol dose has been cut back since admission. Advance lisinopril today Apnea link on room air showing AHI 85 and RI 86; she spent 126min with SpO2<88% --Contributing to her uncontrolled HTN --Suspect untreated sleep apnea. Pulmonary consult since will need at least O2 at home and sleep study as outpatient Will continue to monitor. (6) B12 deficiency: Code(s): E53.8 - Deficiency of other specified B group vitamins Status: Acute Assessment and Plan: B12 level 237. B12 deficiency may contribute to her neurologic symptoms although she not detract from the fact she has had a CVA. B12 injection IM once. Started on oral replacement. (7) Morbid obesity with BMI of 40.0-44.9, adult: Code(s): E66.01 - Morbid (severe) obesity due to excess calories; Z68.41 - Body mass index [BMI] 40.0-44.9, adult Status: Acute Assessment and Plan: BMI 43. Probably contributing to her other medical problems. Healthy lifestyle was encouraged. (8) UTI (urinary tract infection): Code(s): N39.0 - Urinary tract infection, site not specified Status: Acute Assessment and Plan: UA with2+ LE and 21-50 WBC. Rocephin started on admission. BCx NGTD UCx growing klebsiella that is pansensitive Adjust abx. Plan DVT prophylaxis -SCDs Code status -full Subjective Date/time seen: 08/10/23 09:51 Interval history: 63yo female with DM, HTN and HLD here for slurred speech and found to have CVA Feels well.
--- NOTE | 2023-08-10 10:38 | PM.CNPUL ---
Assessment and Plan Assessment and plan (1) Daytime hypersomnia: Code(s): G47.10 - Hypersomnia, unspecified Status: Acute Assessment and Plan: Patient is morbidly obese with a BMI of 44, she snores, she is tired during the day with minimal daytime hypersomnia, she has intermittent morning headaches 1 time every 2 weeks. 08/09/2023: Overnight apnea link with recording duration 6 hours and 14 minutes. Average saturation 90%. Low saturation 70%. Time with saturation less than or equal to 88% was 126 minutes or 35% of the monitored time. Patient's oxygen desaturation index was 85.4. Her resting room air blood gases 7.43/41/70 so there is no evidence of obesity hypoventilation syndrome or chronic hypercarbic respiratory failure. TSH is normal on 08/08/2023 at 1.54. Echocardiogram with normal right ventricular size and normal right atrial size. Tricuspid valve was not well visualized with an RVSP of 23. I am concerned about a sleep-related breathing disorder and patient will require an outpatient split night sleep study to further define this and identify a optimal pressure if she does have obstructive sleep apnea. In the meantime I will repeat an overnight oximetry on 3 L nasal cannula to see if this can correct her overnight hypoxemia. Will follow with you. History of Present Illness History of Present Illness Consult date: 08/10/23 Chief complaint: CVA Narrative: 08/10/2023: This is a new pulmonary consult for abnormal nocturnal hypoxia. 63-year-old with a history of hypertension, hyperlipidemia, COVID 07/05/2021, and diabetes. Patient presented on 08/07 with altered speech and a right-sided facial droop. Patient was hypertensive at 218/78. Room air saturations were 95-98%. Lungs were clear to auscultation. Serum bicarbonate was 25. TSH 1.54. chest x-ray demonstrated no acute abnormalities. Weight is 121.4 kg (peak weight in our system from 07/07/2021 onward was 129 kilos on 05/23/2022). CT of the head demonstrated subtle area of low attenuation loss of solomon-white differentiation in the left parietal lobe which could reflect early infarct. Case was discussed with [facility] and thrombolytics were contour indicated. MRI of the brain on 08/08/23 subsequently demonstrated an acute cortical infarct in the left posterior frontal lobe and shape consistent with an embolic phenomena. She had no atherosclerotic disease. Patient was seen by Neurology and her speech is improved but not normalized. Patient found to have a UTI treated with ceftriaxone with culture on 07/08/2021 growing E coli sensitive to ceftriaxone and a culture on 08/08/2023 growing Klebsiella sensitive to ceftriaxone. Patient has remained on room air since admission. Patient was morbidly obese ( BMI 44) and an overnight apnea link was performed on 08/09/23. 08/09/2023: Overnight apnea link with recording duration 6 hours and 14 minutes. Average saturation 90%. Low saturation 70%. Time with saturation less than or equal to 88% was 126 minutes or 35% of the monitored time. Patient's oxygen desaturation index was 85.4. 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 She states she could walk 3 blocks and is limited by left ankle pain where she has had 2 surgeries. She lives with her daughter who was in the room. The patient is able to carry on a conversation although she replies slowly. The daughter says that her speech is 50% back to baseline and that a right facial droop has nearly resolved. The patient denies obstructive sleep apnea and has never had a sleep study. The patient snores very loudly, she is tired during the day, the daughter states she has gasps for air when she sleeps but no witnessed apnea. She has morning headaches 1 time every 2 weeks and this is associated with sinus congestion. The daughter states she does gasp for air at night. The patient goes to sleep at 9:00 p.m. and wakes up between 1 and 3 every
--- NOTE | 2023-08-10 10:44 | PC.NURSE ---
1000- to [employer] vi aw/c accompanied by nurse for insertion of loop recorder by dr warren
--- NOTE | 2023-08-10 10:45 | PC.NURSE ---
0999- dr. Ac office called - spoke with Radha real estate office supervisor to clarify pt allergies and medication lisinopril-- Radha stated pt has been taking lisinopril 20mg daily - informed dr. bhakta
--- NOTE | 2023-08-10 11:12 | P.PCNCC_ITS ---
Cardiac Cath Procedure Note Date of procedure:: 08/10/23 Performing physician:: James Maloney MD Indication:: Cryptogenic stroke presumed embolic Brief clinical history:: This is a 63-year-old woman without previous cardiac history who presented to the hospital with upper parietal CVA. It appearance of this appears to be consistent with an embolic event. She has no cerebrovascular disease by CTA. This loop recorder has been recommended by Neurology strategy planning consultant to rule out paroxysmal atrial fib Procedure Procedure performed:: Implantation of Medtronic Linq 2 loop recorder Sedation/Medication given:: No sedation Access site:: Left anterior chest wall Estimated blood loss:: Minimal Procedure note:: Patient was brought to the cardiac catheterization lab holding area where the left anterior chest wall was prepped and draped in the normal fashion. Anesthesia was provided with 1% lidocaine infiltrated locally. Using the suppli ed insertion kit the puncture blade was used to make stab wound in the 4th intercostal space at the midclavicular line. Following this using the insertion tool the LINQ loop recorder was implanted subcutaneously inferior to the puncture wound. Manual pressure was held for hemostasis the wound was dressed with bio glue and a Band-Aid. Findings:: Patient received implantation of a Medtronic Linq 2 loop recorder [id number]. Serial number [id number] Conclusion:: Successful uncomplicated implantation of Medtronic LINQ loop recorder for evaluation of cryptogenic stroke in this 63-year-old lady primarily to rule out paroxysmal AFib James Maloney MD [facility]
[2023-08-10] MEDS: lisinopriL 20 MG TABLET 40 MG PO (12:03)
[2023-08-10] MEDS: TOLNAFTATE 1% POWDER 45 GM BTL 1 APPLIC TOPICAL ×2 (12:04→21:11)
[2023-08-10] MEDS: DICLOFENAC SOD 75 MG TABLET.EC BY MOUTH ×2 (12:04→21:09)
[2023-08-10 12:07] LABS: Alveolar/Arterial O2 Gradient 31.1 mmHg; Base Excess ABG 1.9 mEq/l (+/-2.0); Fractional Inspired Oxygen 21 %; HCO3 ABG 26.4 mEq/l (22.0-26.0); Oxygen Content ABG 17.7 %vol (16.0-22.0); Oxygen Saturation ABG 94.4 % (95.0-100.0); Oxyhemoglobin 92.9 % THb (90.0-100.0); PCO2 ABG 40.9 mmHg (35.0-45.0); PO2 ABG 69.7 mmHg (80.0-100.0); PO2 FiO2 Ratio Arterial Blood 3.32 %; Total Hemoglobin 13.5 g/dL (12.0-18.0); pH ABG 7.427 (7.350-7.450)
[2023-08-10 12:09] LABS: Device ROOM AIR; Modified Allen's Test Pass; Site Drawn LEFT RADIAL
[2023-08-10 12:55] LABS: Glucose Point of Care 131 mg/dl (65-105)
--- NOTE | 2023-08-10 15:17 | IVDEFINITY ---
Prior to administration of IV Definity the patient was educated on the risks and benefits of the imaging enhancing agent including potential adverse side effects. The patient verbalized understanding. Allergies were verified. No exclusion criteria were identified and at least one of the following inclusion criteria were met: 1) physician request, 2) patient technically difficult to image (per the [place] [employer] guidelines of two or more segments not discernable within the apical view), or 3) questionable left ventricular function. ?
[2023-08-10 16:41] LABS: Glucose Point of Care 208 mg/dl (65-105)
[2023-08-10] MEDS: metFORMIN HCL 500 MG TABLET 1000 MG PO (17:29)
[2023-08-10] MEDS: CEPHALEXIN 500 MG CAPSULE PO ×2 (17:29→23:11)
[2023-08-10 20:45] LABS: Glucose Point of Care 110 mg/dl (65-105)
[2023-08-10] MEDS: hydrOXYzine HCL 25 MG TABLET PO (21:09)
[2023-08-10] MEDS: GABAPENTIN 300 MG CAPSULE 900 MG PO (21:09)
[2023-08-11] VITALS (16 sets, daily range): BP systolic 145–154; BP diastolic 51–68; PULSE 55–109; RESP 18–20; TEMP 35.9–36; O2SAT 95–100
[2023-08-11] MEDS: CEPHALEXIN 500 MG CAPSULE PO ×3 (05:13→17:18)
--- NOTE | 2023-08-11 08:57 | PM.PNPUL ---
Progress Note: A&P Assessment and Plan (1) Daytime hypersomnia: Code(s): G47.10 - Hypersomnia, unspecified Status: Acute Assessment and Plan: Patient is morbidly obese with a BMI of 44, she snores, she is tired during the day with minimal daytime hypersomnia, she has intermittent morning headaches 1 time every 2 weeks. 08/09/2023: Overnight apnea link with recording duration 6 hours and 14 minutes. Average saturation 90%. Low saturation 70%. Time with saturation less than or equal to 88% was 126 minutes or 35% of the monitored time. Patient's oxygen desaturation index was 85.4. Her resting room air blood gases 7.43/41/70 so there is no evidence of obesity hypoventilation syndrome or chronic hypercarbic respiratory failure. TSH is normal on 08/08/2023 at 1.54. Echocardiogram with normal right ventricular size and normal right atrial size. Tricuspid valve was not well visualized with an RVSP of 23. I am concerned about a sleep-related breathing disorder and patient will require an outpatient split night sleep study to further define this and identify a optimal pressure if she does have obstructive sleep apnea. In the meantime I will repeat an overnight oximetry on 3 L nasal cannula to see if this can correct her overnight hypoxemia. 08/11/23: Patient states she is breathing normal. States she slept very well last night and feels good this morning. Denies fever, chills, cough, phlegm or hemoptysis. Patient had an overnight oximetry on 3 L with recording time of 6 hours and 20 minutes. Average saturation 94%. Low saturation 82%. Time with saturation less than or equal to 88% was 1 minute. Oxygen desaturation index 10.9. Plan: Patient can be discharged from a pulmonary perspective on these pulmonary medications: Oxygen at rest and with ambulation per formal home O2 assessment which I have ordered. Oxygen 3 L at night when she naps and sleeps. Follow-up in the Pulmonary Clinic in 3 weeks. Patient will need an outpatient split night sleep study to assess for sleep-related breathing disorder. Will sign off, call with questions. Subjective Date/time seen: 08/11/23 08:57 Interval history: 08/10/2023: This is a new pulmonary consult for abnormal nocturnal hypoxia. 63-year-old with a history of hypertension, hyperlipidemia, COVID 07/05/2021, and diabetes. Patient presented on 08/07 with altered speech and a right-sided facial droop.? Patient was hypertensive at 218/78.? Room air saturations were 95-98%.? Lungs were clear to auscultation.? Serum bicarbonate was 25.? TSH 1.54. chest x-ray demonstrated no acute abnormalities.? Weight is 121.4 kg (peak weight in our system from 07/07/2021 onward was 129 kilos on 05/23/2022). CT of the head demonstrated subtle area of low attenuation loss of solomon-white differentiation in the left parietal lobe which could reflect early infarct.? Case was [facility] with [facility] and thrombolytics were contour indicated.? MRI of the brain on 08/08/23 subsequently demonstrated an acute cortical infarct in the left posterior frontal lobe and shape consistent with an embolic phenomena.? She had no atherosclerotic disease.? Patient was seen by Neurology and her speech is improved but not normalized. Patient found to have a UTI treated with ceftriaxone with culture on 07/08/2021 growing E coli sensitive to ceftriaxone and a culture on 08/08/2023 growing Klebsiella sensitive to ceftriaxone.? Patient has remained on room air since admission. Patient was morbidly obese ( BMI 44) and an overnight apnea link was performed on 08/09/23. 08/09/2023: Overnight apnea link with recording duration 6 hours and 14 minutes.? Average saturation 90%.? Low saturation 70%.? Time with saturation less than or equal to 88% was 126 minutes or 35% of the monitored time.? Patient's oxygen desaturation index was 85.4. 08/10/23:? 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 She states she could walk 3 block
[2023-08-11 09:00] LABS: Glucose Point of Care 149 mg/dl (65-105)
[2023-08-11] MEDS: lisinopriL 20 MG TABLET 40 MG PO (09:23)
[2023-08-11] MEDS: ASPIRIN 81 MG CHEWABLE TABLET PO (09:24)
[2023-08-11] MEDS: CYANOCOBALAMIN 1,000 MCG TABLET 1000 MCG PO (09:25)
[2023-08-11] MEDS: metFORMIN HCL 500 MG TABLET 1000 MG PO ×2 (09:25→17:18)
[2023-08-11] MEDS: FAMOTIDINE 20 MG TABLET PO (09:26)
[2023-08-11] MEDS: METOPROLOL TARTRATE 50 MG TAB 100 MG PO (09:26)
[2023-08-11] MEDS: DICLOFENAC SOD 75 MG TABLET.EC BY MOUTH (09:27)
[2023-08-11] MEDS: TOLNAFTATE 1% POWDER 45 GM BTL 1 APPLIC TOPICAL (09:28)
[2023-08-11] MEDS: amLODIPine BESYLATE 5 MG TABLET 10 MG PO (09:31)
[2023-08-11] MEDS: polyethylene glycoL 3350 17 GM POWD.PACK PO (11:08)
[2023-08-11 12:06] LABS: Glucose Point of Care 190 mg/dl (65-105)
--- NOTE | 2023-08-11 12:11 | PM.DS ---
DS: Admitting Diagnosis Discharge Date 08/11/23 Admitting Diagnosis Slurred speech. DS: Discharge Diagnosis Discharge Diagnosis (1) Acute CVA (cerebrovascular accident): Code(s): I63.9 - Cerebral infarction, unspecified Status: Acute (2) Aphasia: Code(s): R47.01 - Aphasia Status: Acute (3) Pure hypercholesterolemia, unspecified: Code(s): E78.00 - Pure hypercholesterolemia, unspecified Status: Acute (4) Type 2 diabetes mellitus with diabetic polyneuropathy: Code(s): E11.42 - Type 2 diabetes mellitus with diabetic polyneuropathy Status: Acute (5) Hypertension: Code(s): I10 - Essential (primary) hypertension Status: Acute (6) B12 deficiency: Code(s): E53.8 - Deficiency of other specified B group vitamins Status: Acute (7) Morbid obesity with BMI of 40.0-44.9, adult: Code(s): E66.01 - Morbid (severe) obesity due to excess calories; Z68.41 - Body mass index [BMI] 40.0-44.9, adult Status: Acute (8) UTI (urinary tract infection): Code(s): N39.0 - Urinary tract infection, site not specified Status: Acute DS: Summary Hospital Course Reason for hospitalization: 63yo female with DM, HTN and HLD here for slurred speech and found to have CVA. Please see H&P for details. Hospital Course: Patient brought in by EMS for slurred speech.? Initial NIH score was 4.? Case was discussed with [facility] neurolog[facility].? Head and neck CTA showed possible early, small left parietal infarct as well as hypoperfusion of the right cerebellum.? CT the brain showed subtle area of low attenuation and loss of solomon-white differentiation in the left parietal lobe.? Given these CT scan findings, [facility] advised against thrombolytics.? Patient was admitted for further care.? She was continued on her Lipitor and dose advanced.? Aspirin was added.? Neurology was consulted and appreciate their input.? MRI of the brain showing small acute cortical infarct in the left posterior frontal lobe and a small focus on encephalomalacia at the jct of left posterior parietal and occipital lobes. No acute cerebellum changes noted.? Echocardiogram with bubble study was limited but EF 70%, Grade I diastolic dysfunction, moderate concentric LVH and intact septum.? No evidence of atrial fibrillation on telemetry.? Speech therapy, physical and occupational therapy worked with the patient. We advanced anti-HTN medications to control BP. Loop recorder recommended. Cardiology consulted and and Loop recorder placed 08/10/23. Because of the poorly controlled blood pressure and other symptoms, we check an apnea link which showed AHI 85 and RI 86; she spent 126min with SpO2<88%. Suspect untreated sleep apnea. Pulmonary consulted and repeat Apnea link on 3L at night showed saturation <88% for 1 minute. Plan for home with oxygen at night and with naps. She did not need oxygen during the day. B12 level low at 237.?B12 injection IM once.? Started on oral B12 replacement. UA with2+ LE and 21-50 WBC. Rocephin started on admission. BCx NGTD. UCx growing klebsiella that is pansensitive. Plan to continue abx to complete a course. She overall did well and was able to be discharged home on 08/11/23 Status at Discharge Cognitive/behavioral status at discharge: stable Time Spent with Patient Time attestation: Total time spent providing and/or coordinating discharge services:35 minutes Time spent: Greater than 30 minutes Exam Narrative: AF 96.6 153/68 56 20 100% ra Gen - NARD sitting up in chair Chest - CTA bilaterally, nml RR CV - RRR S1/S2. Telemetry showing no significant dysrhythmia Abd -soft. Obese. Nontender. Ext - No pedal edema Neuro -alert and appropriate. No focal weakness. Psych - Nml mood and affect Skin - Warm and dry DS: Data Data Completed and Pending Labs on day of discharge: Labs from last 24 hours 08/11/23 08/11/23 08/10/23 11:36 07:55 20:16 POC Capil
--- NOTE | 2023-08-11 14:58 | PCRCNOTE ---
Home O2 eval done, patient requires home O2 with sleep/nocturnal at 3 L. She doesn't need O2 at rest or with activity. Will arrange home o2 with Shelly urbano. Shelly urbano will need a room air overnight oximetry test for qualification. Dr Sumner signed the order needed for med. Urbano to do this test in home tonight once she D/C. Patient is aware of needed testing. Pt will be following Dr Sumner in clinic.
[2023-08-11 16:44] LABS: Glucose Point of Care 119 mg/dl (65-105)
--- NOTE | 2023-08-11 17:59 | PC.NURSE ---
discharge instuctions given to pt and daughter; both verbalized understanding, O2 FOR HS delivered to home, home medications returned to pt
[2023-08-17 11:02] LABS: Glucose Point of Care 134 mg/dl (65-105)
== END 2023-08-11 17:58 | disposition home or self-care (01) | DRG 65 ==
LOC: ANHED 22:58 → ANHIMU 08-08 00:03
PROVIDERS: Internal Medicine Pulmonary Disease; Specialist; Admitting Provider Family Medicine; Emergency Provider Preventive Medicine Aerospace Medicine; PCP Family Medicine Adolescent Medicine; Visit Provider Internal Medicine
PROC: (CPT 33285; principal; 2023-08-10 09:45)
DX: I63.10 Cerebral infarction due to embolism of unspecified precerebral artery (principal); G81.91 Hemiplegia, unspecified affecting right dominant side; N39.0 Urinary tract infection, site not specified; Z68.41 Body mass index [BMI] 40.0-44.9, adult; B96.1 Klebsiella pneumoniae [K. pneumoniae] as the cause of diseases classified elsewhere; R29.810 Facial weakness; R47.81 Slurred speech; R47.01 Aphasia; R29.704 NIHSS score 4; R09.02 Hypoxemia; I10 Essential (primary) hypertension; E78.5 Hyperlipidemia, unspecified; E11.42 Type 2 diabetes mellitus with diabetic polyneuropathy; G47.10 Hypersomnia, unspecified; E66.01 Morbid (severe) obesity due to excess calories; E53.8 Deficiency of other specified B group vitamins; F41.9 Anxiety disorder, unspecified; M54.16 Radiculopathy, lumbar region; Z90.49 Acquired absence of other specified parts of digestive tract; Z79.84 Long term (current) use of oral hypoglycemic drugs; Z86.16 Personal history of COVID-19
CPT/HCPCS: 33285; 36415; 36600; 70450; 70496; 70498; 70553; 71045; 80048; 80053; 80061; 80307; 81001; 81025; 82607; 82805; 82948; 83036; 83721; 83735; 84100; 84443; 84484; 85025; 85055; 85610; 85730; 87040; 87077; 87086; 87186; 92507; 92523; 92610; 93005; 94618; 94762; 96375; 97110; 97112; 97161; 97165; 97530; 97535; 99285; A9270; A9577; C1764; C8929; J0696; J3420; J7030; Q9957; Q9967

== ENCOUNTER 2023-09-09 08:49 | Emergency (ER) | payer BC, MEDICAID, SELFPAY ==
[2023-09-09 09:04] VITALS: BP 115/70; PULSE 57; RESP 14; TEMP 36.4; O2SAT 100
--- NOTE | 2023-09-09 09:13 | ED.URI ---
HPI - URI/Sore Throat General Chief Complaint: Upper Respiratory Infection Stated Complaint: Cough/Ears/Throat Pain Time Seen by Provider: 09/09/23 09:13 Source: patient Mode of arrival: ambulatory Limitations: no limitations History of Present Illness HPI Narrative: May is a 63-year-old female patient presenting to the clinic today with complaints of cough, ear pain, and sore throat x4 days. She denies any known fever but has had some chills. Has had exposure to strep. MD elicited complaint: cough, sore throat and nasal congestion Related Data Home Medications Medication Instructions Recorded Confirmed famotidine 20 mg tablet 20 mg PO DAILY 08/08/23 09/09/23 gabapentin 300 mg capsule 900 mg PO HS 08/08/23 09/09/23 hydroxyzine HCl 25 mg tablet 25 mg PO HS 08/08/23 09/09/23 Allergies Allergy/AdvReac Type Severity Reaction Status Date / Time codeine Allergy Intermediate RASH, Verified 09/09/23 09:00 DIFFICULTY BREATHING Review of Systems Review of Systems: Pertinent positives per HPI. Patient denies any fever, rash, headache, visual changes, dizziness, shortness of breath, chest pain, palpitations, nausea, vomiting, diarrhea, constipation, abdominal pain, or any urinary issues. FORMERLY [facility] Past Medical History Medical History Acute respiratory failure with hypoxia COVID-19 History of stress test Age 20+ Hyperlipidemia Hypertension Pure hypercholesterolemia, unspecified Type 2 diabetes mellitus with diabetic polyneuropathy Surgical History Surgical History History of ankle surgery History of appendectomy History of History of cholecystectomy History of tonsillectomy Family History Family History Mother Diabetes mellitus Hypertension Cerebrovascular accident Father Heart disease Hypertension Sibling Depression Liver cancer Other Breast cancer Social History Social History Smoking status: Never smoker Second hand tobacco smoke exposure: Yes Alcohol intake: never Substance use: never Substance use type: does not use Lack of Transportation: No Lack of Food: Often True Current Housing: I Have Housing Concerned About Future Housing: No Difficulty Paying Gas/Electric Bills: No Difficulty Paying for Meds: YES Currently Unemployed: No Education: Trade/Vocational Certificate Difficulty w/ Childcare or Family Care: No Living arrangements: with family Occupation/Education: occupation Gender identity (if verbalized by the patient): Female Sexual Orientation (if Verbalized by the Patient): Straight or Heterosexual Spiritual care concerns: No Agree to blood products: Yes Comments At the time of my signature, I reviewed and agree with the nursing past medical, surgical, social, and family history. There is no relevant family history pertinent to the patient complaint. Exam Narrative: General: Well-developed, obese, in no apparent distress Head: Normocephalic, atraumatic Eyes: Pupils equally round and reactive to light bilaterally, EOM intact, sclera and conjunctive clear, no discharge, lids normal Ears: TMs intact and congested, ear canals clear, no drainage, grossly hearing normal. Nose: Nares patent, clear discharge, no inflammation, no sinus tenderness. Mouth: Oral pharynx red with bilateral tonsillar enlargement without lesions or masses, good dentition, MMM. Neck: Supple, trachea midline, mild enlargement of anterior cervical nodes, no thyroid masses or goiter palpable. Cardio: Regular rate and rhythm, s1 and s2 normal, no murmur appreciated. Resp: Clear to auscultation bilaterally, no rhonchi, rales, wheezing or rubs Course Course Emergency Course: Portions of this record may have been created with voice r
== END 2023-09-09 09:30 | disposition home or self-care (01) ==
PROVIDERS: Emergency Provider Nurse Practitioner Family; PCP Physician Assistant
DX: J02.0 Streptococcal pharyngitis (principal); Z20.822 Contact with and (suspected) exposure to COVID-19; Z86.16 Personal history of COVID-19; E78.5 Hyperlipidemia, unspecified; I10 Essential (primary) hypertension; E78.00 Pure hypercholesterolemia, unspecified; E11.42 Type 2 diabetes mellitus with diabetic polyneuropathy
CPT/HCPCS: 87426; 87880; 99213; C9803; G0463

== ENCOUNTER 2023-10-05 08:22 | Outpatient (CLI) | payer MEDICAID, SELFPAY ==
--- NOTE | 2023-10-28 08:50 | WPDSLEEPSTUD ---
Sleep Study Date of Study: 10/05/23 Ordering Provider: James Sumner MD Interpreting Physician: Cindy Hayes DO Sleep Study Type: Split Polysomnogram Height: 1.68 m Weight: 112.491 kg Body Mass Index: 40.0 Neck Circumference (inches): 17 [place]: 8 Reason for Sleep Study Snoring, nocturnal hypoxemia Sleep History The patient is a 63 female with hypertension, diabetes, depression, hyperlipidemia, obesity, history of stroke in July 2023 and supplemental oxygen dependence that had a sleep study ordered by her billboard erector helper after having an abnormal apnea link in hospital. The patient rarely awakens from sleep short of breath. She rarely awakens at night with heartburn, belching or cough. She frequently snores and it is frequently loud enough that others complain. She constantly has trouble sleeping when she has a cold. She constantly wakes up gasping for air throughout the night. He constantly has breathing problems at night observed by herself or others. She denies sweating excessively at night. She denies having heart palpitations or irregular heartbeats during the night. She denies falling asleep during the day and denies falling asleep while driving. She denies sleep paralysis and cataplexy. She denies having trouble at school or work due to sleepiness. She constantly experiences vivid dreamlike scenes upon awakening or falling asleep. She frequently feels afraid of going to sleep. She denies having nightmares. She occasionally remembers her dreams. She denies having thoughts racing through her mind. She denies feeling sad or depressed. She constantly has anxiety. She constantly has muscular tension. She denies noticing parts of her body jerk. She denies kicking during the night. She constantly has crawling and aching feelings legs and constantly has leg pain during the night. She denies grinding her teeth during sleep and denies awakening with morning jaw pain. She is constantly bothered by pain during the day and constantly awakened by pain during the night. She denies waking up feeling stiff in the morning. She denies waking up with sore or achy muscles. She constantly wakes up with pain in the neck, spine other joints. She goes to bed between 8-10 p.m. on weekdays and between 11:00 p.m. to midnight on the weekends. She is unsure how long it takes her to fall asleep. She wakes up twice throughout the night and she will play on her tablet. A can take her 1-3 hours to fall back asleep. She wakes up at 6:00 a.m. on both weekdays and weekends. She typically gets 4-5 hours of sleep per night. She will stay in bed for 30 minutes after waking up in the morning. He currently lives with her daughter and 2 grandsons. She denies consuming any caffeinated beverages within 2 hours of bedtime. She denies engaging in physical exercise before bedtime. She will watch television before falling asleep. She will take naps in afternoon or the evening and they are refreshing. She consumes 1 cup of caffeinated beverage per day. She denies tobacco, alcohol and recreational drug use. [facility] Past Medical History Medical History Acute respiratory failure with hypoxia COVID-19 History of stress test Age 20+ Hyperlipidemia Hypertension Pure hypercholesterolemia, unspecified Type 2 diabetes mellitus with diabetic polyneuropathy Surgical History Surgical History History of ankle surgery History of appendectomy History of History of cholecystectomy History of tonsillectomy Family History Family History Mother Diabetes mellitus Hypertension Cerebrovascular accident Father Heart disease Hypertension Sibling Depression Liver cancer Other Breast cancer Social History Social History (Reviewed 10/28/23 @ 08:57 by Simi
[2023-10-28 08:51] VITALS: BMI 40.0
== END 2023-10-06 06:45 | disposition home or self-care (01) ==
LOC: ANHCSM 08:24
PROVIDERS: PCP Physician Assistant; Visit Provider Internal Medicine Pulmonary Disease
DX: G47.33 Obstructive sleep apnea (adult) (pediatric) (principal); G47.10 Hypersomnia, unspecified; I10 Essential (primary) hypertension; Z99.81 Dependence on supplemental oxygen
CPT/HCPCS: 95811

== ENCOUNTER 2023-10-09 13:57 | Outpatient (CLI) | payer MEDICAID, SELFPAY ==
--- NOTE | ~2023-10-09 | MM_ITS ---
EXAMINATION: MM screening [place] BI w [facility] HISTORY: Screening mammogram TECHNIQUE: Craniocaudal and mediolateral oblique 3-D tomosynthesis images were obtained and synthetic 2-D images were generated. CAD analysis was submitted and interpreted. COMPARISON: 01/21/2017 bilateral screening mammogram BREAST PARENCHYMAL COMPOSITION: The breasts are almost entirely fatty. FINDINGS: Electronic monitor device is noted in the inner upper left breast.. There is no evidence of suspicious mass, calcification, or architectural distortion to suggest malignancy in either breast. There has been no suspicious interval change. IMPRESSION: 1. No mammographic evidence of malignancy. 2. Recommend routine screening mammography in one year. BI-RADS Category 1: Negative Reviewed, dictated and finalized at location A. ER CHAIN OFFBEARER
== END 2023-10-09 13:58 | disposition home or self-care (01) ==
PROVIDERS: PCP Physician Assistant; Visit Provider Physician Assistant
DX: Z12.31 Encounter for screening mammogram for malignant neoplasm of breast (principal)
CPT/HCPCS: 77063; 77067

== ENCOUNTER 2023-10-18 19:01 | Emergency (ER) | payer MEDICAID, SELFPAY ==
[2023-10-18 19:08] VITALS: BP 151/73; PULSE 81; RESP 18; TEMP 36.4; O2SAT 100
--- NOTE | 2023-10-18 19:20 | ED.GENADULT ---
HPI - General Adult General Chief complaint: Skin/Abscess/Foreign Body Stated complaint: Rash Source: patient Mode of arrival: ambulatory Limitations: no limitations History of Present Illness HPI narrative: Patient presents for evaluation of a painful pruritic rash beneath her breasts and in her abdominal folds. She was given fluconazole orally x2 doses. She was also given a prescription for tolnaftate. Neither seems to be helping. She is diabetic but states her blood sugars at home have been in the 110's. She does reuse towels. She states that she has been sticking a sock in her abdominal folds to reduce moisture. Related Data Home Medications Medication Instructions Recorded Confirmed famotidine 20 mg tablet 20 mg PO DAILY 08/08/23 09/24/23 hydroxyzine HCl 25 mg tablet 25 mg PO HS 08/08/23 09/24/23 gabapentin 300 mg capsule 800 mg PO HS 09/24/23 09/24/23 gabapentin 800 mg tablet 800 mg PO QID 09/24/23 09/24/23 hydroxyzine HCl 100 mg tablet 125 mg PO DAILY 09/24/23 Allergies Allergy/AdvReac Type Severity Reaction Status Date / Time codeine Allergy Intermediate RASH, Verified 10/18/23 19:10 DIFFICULTY BREATHING Review of Systems Review of Systems: CONSTITUTIONAL: Denies fever, chills, or sweats. EYES: Denies visual changes, redness, or discharge. ENT: Denies rhinorrhea, congestion, sore throat, or otalgia. CARDIOVASCULAR: Denies chest pain, palpitations, or edema. RESPIRATORY: Denies cough or dyspnea. GASTROINTESTINAL: Denies abdominal pain, nausea, vomiting, or diarrhea. GENITOURINARY: Denies dysuria or hematuria. SKIN: reports pruritic and burning rash to the skin under the breasts and in her abdominal folds MUSCULOSKELETAL: Denies back pain, joint pain, or myalgia. NEUROLOGIC: Denies headache, numbness, dizziness, or weakness. PSYCHIATRIC: Denies anxiety or depression. [facility] Past Medical History Medical History Acute respiratory failure with hypoxia COVID-19 History of stress test Age 20+ Hyperlipidemia Hypertension Pure hypercholesterolemia, unspecified Type 2 diabetes mellitus with diabetic polyneuropathy Surgical History Surgical History History of ankle surgery History of appendectomy History of History of cholecystectomy History of tonsillectomy Family History Family History Mother Diabetes mellitus Hypertension Cerebrovascular accident Father Heart disease Hypertension Sibling Depression Liver cancer Other Breast cancer Social History Social History Smoking status: Never smoker Second hand tobacco smoke exposure: Yes Alcohol intake: never Substance use: never Substance use type: does not use Lack of Transportation: No Lack of Food: Often True Current Housing: I Have Housing Concerned About Future Housing: No Difficulty Paying Gas/Electric Bills: No Difficulty Paying for Meds: YES Currently Unemployed: No Education: Trade/Vocational Certificate Difficulty w/ Childcare or Family Care: No Living arrangements: with family Occupation/Education: occupation Gender identity (if verbalized by the patient): Female Sexual Orientation (if Verbalized by the Patient): Straight or Heterosexual Spiritual care concerns: No Agree to blood products: Yes Exam Narrative: GENERAL: Well-appearing, well-nourished, and in no acute distress. HEAD: Normocephalic, atraumatic. EYES: PERRLA and EOMI. ENT: Nares clear, no rhinorrhea or epistaxis. Mucous membranes moist. Oropharynx without tonsillar hypertrophy exudate or other lesions. Bilateral TMs pearly solomon nonbulging NECK: Supple. No adenopathy or masses. No carotid bruits or JVD CHEST: Clear to auscultation. No respiratory dist
== END 2023-10-18 19:30 | disposition home or self-care (01) ==
PROVIDERS: Emergency Provider Nurse Practitioner; PCP Physician Assistant
DX: B35.4 Tinea corporis (principal); E78.5 Hyperlipidemia, unspecified; I10 Essential (primary) hypertension; E78.00 Pure hypercholesterolemia, unspecified; E11.42 Type 2 diabetes mellitus with diabetic polyneuropathy; Z86.16 Personal history of COVID-19
CPT/HCPCS: 99213; G0463

== ENCOUNTER 2023-11-18 10:15 | Outpatient (RCR) | payer BC, OTHER, MEDICAID, SELFPAY ==
--- NOTE | 2023-09-02 12:19 | OPREHPOC ---
Outpatient Therapy Plan of Care This is a Multidisciplinary Plan of Care that may contain components documented by all disciplines (PT, OT, and ST.) ST Problem 1 ST Problem #[address] Goal 1 Goal Patient will participate in stroke education in order to learn how to reduce risk factors and identify signs and symptoms of a stroke. Target Visit 4 ST Goal 2 Goal Patient will participate in education to learn compensatory strategies and exercises to use in home program to improve carryover of goals into natural environment. Target Visit [address] Problem #[address] Goal 1 Goal Patient will increase word-finding ability by completing divergent naming task with 15 items named in one minute. Target Visit 4 ST Goal 2 Goal Patient will repeat 8-10 word sentences with 80% accuracy independently. Target Visit [address] Problem #[address] Goal 1 Goal Patient will complete word relationship tasks ( semantic feature analysis map, analogies, compare/ contrast) with 80% accuracy when provided minimal verbal or visual cues. Target Visit 4
--- NOTE | 2023-09-02 12:19 | STOPEVAL1 ---
Assessment and note entered by Rosalia Wise HEALTH SERVICE WORKER Evaluation Information Assessment Status Evaluation Reported Pain Level Pain Score 0: Self Report Assessment ST Clinical Summary Laila Gamble is a 63 year old who has a past medical history significant for acute respiratory failure with hypoxia and HTN. 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 Per self-report, patient has difficulty fully expressing herself. She says the words are there in her brain, but she has difficulty getting them out verbally or by writing them out/texting on her phone. However, patient does feel that her deficits have slowly but steadily improved since her stroke. Patient completed informal testing to evaluate the type and severity of her aphasia. Patient's auditory comprehension was judged to be within normal limits. Patient demonstrated slight difficulty with more complex yes or no questions, but was able to follow complex 3-step directives with 100% accuracy. Patient was able to answer questions following simple and moderate paragraphs with 100% accuracy, but responded correctly to the complex paragraph with 60% accuracy. Patient demonstrated mild deficits in expressive communication including divergent naming below the norm of 15 items per minute (12 per minute) and repetition of sentences with 50% accuracy. Patient 's naming of pictures was 90% accuracy; however, she occasionally required increase in wait time to find the word. Patient displayed strengths in functional reading comprehension; however she occasionally misses words due to her eyes moving faster than she is ready for. Patient demonstrated functional reading with 100% accuracy. Recommend patient to participate in skilled ST services 1x/week for 4 weeks to target mild expressive aphasia in order to improve functional communication for safe completion of ADLs and return to prior level of function. Thank you for this referral. Plan of Care Interventions Treatment of Language ST Services Indicated Yes Treatment Frequency and .1x/week for 4 weeks Duration These treatments will address the objective and functional deficits as define
--- NOTE | 2023-09-22 10:28 | PCSTNOTE ---
Patient called & cancelled scheduled appointment this date due to [illness. ]
--- NOTE | 2023-09-30 10:09 | OPREHPOC ---
Outpatient Therapy Plan of Care This is a Multidisciplinary Plan of Care that may contain components documented by all disciplines (PT, OT, and ST.) ST Problem 1 ST Problem #[address] Goal 1 Goal Patient will participate in stroke education in order to learn how to reduce risk factors and identify signs and symptoms of a stroke. Target Visit [address] Goal 2 Goal Patient will participate in education to learn compensatory strategies and exercises to use in home program to improve carryover of goals into natural environment. Target Visit [address] Problem [address] ST Problem #[address] Goal 1 Goal Patient will increase word-finding ability by completing divergent naming task with 15 items named in one minute. Target Visit 4 Progress Not Met Comment 10 items/minute ST Goal 2 Goal Patient will repeat 8-10 word sentences with 80% accuracy independently. Target Visit [address] Problem 3 ST Problem #[address] Goal 1 Goal Patient will complete word relationship tasks ( semantic feature analysis map, analogies, compare/ contrast) with 80% accuracy when provided minimal verbal or visual cues. Target Visit 4 Progress Partially Met
--- NOTE | 2023-09-30 10:09 | STOPPROG ---
Assessment and note entered by Rosalia Wise KNOT CUTTER Evaluation Information Assessment Status Progress - Pt Not Present Assessment ST Clinical Summary Laila Gamble has attended 1 of 4 scheduled treatment sessions for I69.320 Aphasia since her evaluation on 09/02/23. In her attended session, Laila completed word- finding tasks and divergent naming tasks to improve expressive communication. Due to illness, she was unable to attend her other scheduled ST sessions. Therefore, all goals remain appropriate to improve functional communication. Recommend patient to receive skilled ST treatment to target expressive language 1-2x/week for 4 weeks to improve functional communication in order to improve safety and d/c at prior level of function. Plan of Care Interventions Treatment of Language ST Services Indicated Yes Treatment Frequency and .1-.2x/week for 4 weeks Duration These treatments will address the objective and functional deficits as defined above. The patient will be advanced safely and appropriately in order for the patient to progress towards his/her prior level of function. Additional exercises will be introduced and as well as a comprehensive home exercise program upon discharge, if needed, ?to ensure carryover of functional gains achieved in the clinic. This treatment plan has been reviewed and agreement upon by the patient.
--- NOTE | 2023-11-03 11:19 | OPREHPOC ---
Outpatient Therapy Plan of Care This is a Multidisciplinary Plan of Care that may contain components documented by all disciplines (PT, OT, and ST.) ST Problem 1 ST Problem #[address] Goal 1 Goal Patient will participate in stroke education in order to learn how to reduce risk factors and identify signs and symptoms of a stroke. Target Visit [address] Goal 2 Goal Patient will participate in education to learn compensatory strategies and exercises to use in home program to improve carryover of goals into natural environment. Target Visit [address] Problem 2 ST Problem #[address] Goal 1 Goal Patient will increase word-finding ability by completing divergent naming task with 15 items named in one minute. Target Visit 4 Progress Partially Met Comment 10 items/minute ST Goal 2 Goal Patient will repeat 8-10 word sentences with 80% accuracy independently. Target Visit [address] Problem 3 ST Problem #[address] Goal 1 Goal Patient will complete word relationship tasks ( semantic feature analysis map, analogies, compare/ contrast) with 80% accuracy when provided minimal verbal or visual cues. Target Visit [address] Goal 2 Goal Patient will participate in verb network strengthening exercises with 80% accuracy when provided minimal cues in order to improve flexibility in word-finding for functional communication. Target Visit 4 Progress Not Met
--- NOTE | 2023-11-03 11:19 | STOPPROG ---
Assessment and note entered by Rosalia Wise, BIOLOGY LECTURER Evaluation Information Assessment Status Progress - Pt Not Present Assessment ST Clinical Summary Laila Gamble has attended 3 of 4 scheduled treatment sessions for I69.320 Aphasia since her last progress report on 09/30/23. In this progress period, Laila improved divergent naming from 8 items per category in one minute to 16 items per category in one minute. Laila has also improved categorization skills ( general category, sub category, specific member) from 38% accuracy to 55% accuracy. Additionally, Laila has participated in education to improve use of compensatory word-finding strategies by using a semantic feature analysis map. Education regarding signs and symptoms of a stroke as well as providing examples to reduce risk factors was provided as well. Laila was very receptive to all recommendations in order to reduce risk of another stroke. Recommend patient to continue skilled ST treatment to target expressive language 1-2x/week for 4 weeks to improve functional communication in order to improve safety and d/c at prior level of function. Plan of Care Interventions Treatment of Language ST Services Indicated Yes Treatment Frequency and .1-.2x/week for 4 weeks Duration These treatments will address the objective and functional deficits as defined above. The patient will be advanced safely and appropriately in order for the patient to progress towards his/her prior level of function. Additional exercises will be introduced and as well as a comprehensive home exercise program upon discharge, if needed, ?to ensure carryover of functional gains achieved in the clinic. This treatment plan has been reviewed and agreement upon by the patient.
[2023-11-16 09:00] VITALS: O2SAT 75
--- NOTE | 2023-11-24 10:05 | PCSTNOTE ---
Patient called & cancelled scheduled appointment this date due to [road conditions. ]
--- NOTE | 2023-12-02 09:49 | PCSTNOTE ---
This treatment is being continued on visit number [id number]. Please see documentation on both accounts to view progress. Completed interventions, outcomes, and problems have been marked as Inactive to facilitate the copying of the Care plan routine for recurring accounts.
== END 2023-12-01 23:59 | disposition home or self-care (01) ==
LOC: ANHST 10:15
PROVIDERS: PCP Physician Assistant; Visit Provider Physician Assistant
DX: I63.9 Cerebral infarction, unspecified (principal)
CPT/HCPCS: 92507; 92523

== ENCOUNTER 2023-12-20 10:46 | Emergency (ER) | payer OTHER, SELFPAY ==
--- NOTE | ~2023-12-20 | XR_ITS ---
EXAMINATION: XR foot LT min 3V DATE: 12/20/2023 11:38 INDICATION: Left great toe pain. Fall. TECHNIQUE: 4 views of left foot were obtained. COMPARISON: Left foot radiographs 03/03/2023 FINDINGS: Bone alignment is normal. There is a nondisplaced transverse fracture of first distal phala nx. There is mild osteoporosis of first metatarsophalangeal joint and some of the interphalangeal mere nts. 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 There are enthesophytes at the posterior and plantar a spects of calcaneal tuberosity. IMPRESSION: 1. Nonspecific transverse fracture of first distal phalanx. Reviewed, dictated and finalized at location A. AND GROUNDS SUPERVISOR
--- NOTE | ~2023-12-20 | XR_ITS ---
EXAMINATION: XR hip LT 2V w AP pelvis DATE: 12/20/2023 11:38 INDICATION: Left hip pain. Fall. TECHNIQUE: An anteroposterior view of the pelvis and 2 views of left hip were obtained. COMPARISON: None. FINDINGS: Bone alignment is normal. No fracture. There is mild osteoarthritis of the hips. Osteitis p ubis is noted. There is moderate lumbar spondylosis. Surgical clips overlie the pelvis. IMPRESSION: 1. Mild osteoarthritis of the hips. Reviewed, dictated and finalized at location A. ILLING OPERATOR
--- NOTE | 2023-12-20 11:01 | ED.FALL ---
HPI - Fall General Chief Complaint: Fall Stated Complaint: fell, buttocks hurts, left leg hurts,toe injury Time Seen by Provider: 12/20/23 10:48 Source: patient Mode of arrival: ambulatory Limitations: no limitations History of Present Illness HPI Narrative: May is a 63-year-old female patient presenting to the clinic today with complaints of a ground level fall. Reports she she was bending floor on Thursday and fell over on her left side. She is having pain to the left posterior hip and pain is radiating down the left leg. She is also reporting left great toe pain with bruising and swelling noted to the base and medial great toe. Patient is already wearing a postop shoe. She denies any chest pain, shortness of breath, dizziness, headache, weakness, lethargy, or visual changes. Related Data Home Medications Medication Instructions Recorded Confirmed hydroxyzine HCl 25 mg tablet 25 mg PO HS 08/08/23 12/20/23 gabapentin 800 mg tablet 800 mg PO QID 09/24/23 12/20/23 empagliflozin 25 mg tablet 25 mg PO DAILY 12/20/23 12/20/23 (Jardiance) Allergies Allergy/AdvReac Type Severity Reaction Status Date / Time codeine Allergy Intermediate RASH, Verified 12/20/23 10:58 DIFFICULTY BREATHING Review of Systems Review of Systems: Pertinent positives per HPI. Patient denies any fever, chills, rash, headache, visual changes, dizziness, cough, runny nose, sore throat, shortness of breath, chest pain, palpitations, nausea, vomiting, diarrhea, constipation, abdominal pain, or any urinary issues. [facility] Past Medical History Medical History Acute respiratory failure with hypoxia COVID-19 History of stress test Age 20+ Hyperlipidemia Hypertension Pure hypercholesterolemia, unspecified Type 2 diabetes mellitus with diabetic polyneuropathy Surgical History Surgical History History of ankle surgery History of appendectomy History of History of cholecystectomy History of tonsillectomy Family History Family History Mother Diabetes mellitus Hypertension Cerebrovascular accident Father Heart disease Hypertension Sibling Depression Liver cancer Other Breast cancer Social History Social History Smoking packs per day: 0 Smoking cigarettes per day: 0.0 Years smoked: 0 Smoking pack-years: 0.00 Smoking status: Never smoker Second hand tobacco smoke exposure: Yes Alcohol intake: never Substance use: never Substance use type: does not use Do You Feel Safe in your Home?: Yes Lack of Transportation: No Lack of Food: Often True Current Housing: I Have Housing Concerned About Future Housing: No Difficulty Paying Gas/Electric Bills: No Difficulty Paying for Meds: YES Currently Unemployed: No Education: Trade/Vocational Certificate Difficulty w/ Childcare or Family Care: No Living arrangements: with family Occupation/Education: occupation Gender identity (if verbalized by the patient): Female Sexual Orientation (if Verbalized by the Patient): Straight or Heterosexual Spiritual care concerns: No Agree to blood products: Yes Comments At the time of my signature, I reviewed and agree with the nursing past medical, surgical, social, and family history. There is no relevant family history pertinent to the patient complaint. Exam Narrative: General: Well-developed, well nourished, in no apparent distress Head: Normocephalic, atraumatic. Cardio: Sinus bradycardia- regular rate and rhythm, s1 and s2 normal, no murmur appreciated. Resp: Clear to auscultation bilaterally, no rhonchi, rales, wheezing or rubs. Musculoskeletal: No deformity, tender to palpation over the medial and base of the left great toe with old b
[2023-12-20 11:06] VITALS: BP 88/51; PULSE 119; RESP 20; TEMP 37.1; O2SAT 98
--- NOTE | 2023-12-20 11:55 | ECG_ITS ---
Measurements Intervals [place] Rate: 56 P: 16 UT: 174 QRS: -19 QRSD: 81 T: 19 QT: 419 QTc: 407 Interpretive Statements SINUS BRADYCARDIA LOW QRS VOLTAGE IN PRECORDIAL LEADS [QRS DEFLECTION < 1.0 mV IN CHEST LEADS] NONSPECIFIC T-WAVE ABNORMALITY ABNORMAL ECG COMPARED TO ECG 08/07/2023 20:54:02 SINUS BRADYCARDIA NOW PRESENT Electronically Signed On 12-20-2023 12:37:42 VEHICLE BODY MAKER by Lester Briones M.D.
[2023-12-20 12:35] VITALS: BP 82/58; PULSE 55
== END 2023-12-20 12:35 | disposition home or self-care (01) ==
PROVIDERS: Emergency Provider Nurse Practitioner Family; PCP Physician Assistant
DX: I95.9 Hypotension, unspecified (principal); R00.1 Bradycardia, unspecified; M25.552 Pain in left hip; M16.0 Bilateral primary osteoarthritis of hip; S92.425A Nondisplaced fracture of distal phalanx of left great toe, initial encounter for closed fracture; W18.30XA Fall on same level, unspecified, initial encounter; E78.5 Hyperlipidemia, unspecified; I10 Essential (primary) hypertension; E78.00 Pure hypercholesterolemia, unspecified; E11.42 Type 2 diabetes mellitus with diabetic polyneuropathy; Z79.84 Long term (current) use of oral hypoglycemic drugs; Z79.82 Long term (current) use of aspirin
CPT/HCPCS: 73502; 73630; 93005; 99214; G0463

== ENCOUNTER 2023-12-30 10:00 | Outpatient (RCR) | payer OTHER, SELFPAY ==
[2023-12-02 00:03] VITALS: O2SAT 75
--- NOTE | 2023-12-02 09:50 | PCSTNOTE ---
The treatment documented on this account is a continuation of the treatment documented on visit number [id number]. Please see documentation on both accounts to view progress. The Plan of Care has been transitioned and updated within the new V#. I have addressed and agree with the discipline specific Problems, Interventions, and Goals for the current certification period. Completed interventions, outcomes, and problems have been marked as Inactive to facilitate the copying of the Care plan routine for recurring accounts.
--- NOTE | 2023-12-02 11:27 | STOPPROG ---
Assessment and note entered by Rosalia Wise, APARTMENT LOCATOR Evaluation Information Assessment Status Progress Assessment ST Clinical Summary Laila Gamble has attended 3 of 4 scheduled treatment sessions for I69.320 Aphasia since her last progress report on 11/03/23. In this progress period, Laila improved divergent naming from 10 items per category in one minute to 13 items per category in one minute. Laila has also improved categorization skills ( general category, sub category, specific member) from 55% accuracy to 80% accuracy with minimal to moderate level of verbal cues. Additionally, Laila has participated in education to improve use of compensatory word-finding strategies by using a semantic feature analysis map. Laila continues to be very receptive to all recommendations to implement in home program to improve ability and speed of word-finding to improve functional communication. Recommend patient to continue skilled ST treatment to target expressive language 1-2x/week for 4 weeks to improve functional communication in order to improve safety and d/c at prior level of function. Plan of Care Interventions Treatment of Language ST Services Indicated Yes Treatment Frequency and .1-.2x/week for 4 weeks Duration These treatments will address the objective and functional deficits as defined above. The patient will be advanced safely and appropriately in order for the patient to progress towards his/her prior level of function. Additional exercises will be introduced and as well as a comprehensive home exercise program upon discharge, if needed, ?to ensure carryover of functional gains achieved in the clinic. This treatment plan has been reviewed and agreement upon by the patient.
--- NOTE | 2023-12-02 11:31 | OPREHPOC ---
Outpatient Therapy Plan of Care This is a Multidisciplinary Plan of Care that may contain components documented by all disciplines (PT, OT, and ST.) ST Problem 1 ST Problem #[address] Goal 1 Goal Patient will participate in stroke education in order to learn how to reduce risk factors and identify signs and symptoms of a stroke. Target Visit [address] Goal 2 Goal Patient will participate in education to learn compensatory strategies and exercises to use in home program to improve carryover of goals into natural environment. Target Visit [address] Problem 2 ST Problem #[address] Goal 1 Goal Patient will increase word-finding ability by completing divergent naming task with 15 items named in one minute. Target Visit 4 Progress Partially Met Comment 13 items/minute Comment 10 items/minute ST Goal 2 Goal Patient will repeat 8-10 word sentences with 80% accuracy independently. Target Visit [address] Problem 3 ST Problem #[address] Goal 1 Goal Patient will complete word relationship tasks ( semantic feature analysis map, analogies, compare/ contrast) with 80% accuracy when provided minimal verbal or visual cues. Target Visit [address] Goal 2 Goal Patient will participate in verb network strengthening exercises with 80% accuracy when provided minimal cues in order to improve flexibility in word-finding for functional communication. Target Visit 4 Progress Not Met
--- NOTE | 2023-12-21 08:39 | PCSTNOTE ---
Patient called & cancelled scheduled appointment this date. Patient is sick.[ ]
--- NOTE | 2023-12-30 10:50 | STOPDC ---
Assessment and note entered by Rosalia Wise NURSING ASSISTANTS TEACHER Evaluation Information Assessment Status Discharge Reported Pain Level Pain Score 0: Self Report Assessment ST Clinical Summary Laila Gamble has attended 3 of 4 scheduled treatment sessions for I69.320 Aphasia since her last progress report on 12/02/23. In this progress period, Laila improved divergent naming from an average of 13 items per category in one minute to 14 items per category in one minute. Laila has also participated in verb network strengthening treatment (VNeST) in order to target expressive language deficits and improve flexibility in word-finding. Laila continues to be very receptive to all recommendations to implement in home program to improve ability and speed of word-finding to improve functional communication. Laila will d/c from skilled ST services at this time due. She has met 4 of 5 set goals in expressive communication and will continue to implement home program to improve timeliness of word-finding. Plan of Care ST Services Indicated No
== END 2024-01-07 13:22 | disposition home or self-care (01) ==
LOC: ANHST 10:00
PROVIDERS: PCP Physician Assistant; Visit Provider Physician Assistant
DX: I63.9 Cerebral infarction, unspecified (principal)
CPT/HCPCS: 92507

== ENCOUNTER 2024-01-26 08:39 | Outpatient (CLI) | payer OTHER, SELFPAY ==
--- NOTE | 2024-01-26 11:30 | NEURO_ITS ---
Impression: # FDC diabetic complains of increasing numbness of feet. # Motor/sensory neuropathy of axonal type. # Needle/EMG exam reveals neurogenic changes. # Clinical correlation recommended. Nerve Conduction Studies Anti Sensory Summary Table Stim Site NR Peak (ms) P-T Amp (?V) Site1 Site2 Delta-P (ms) Dist (cm) James (m/s) Left Saphenous Anti Sensory (Ant Med Mall) NO RESPONSE 14cm NR 14cm Ant Med Mall 0.0 Right Saphenous Anti Sensory (Ant Med Mall) NO RESPONSE 14cm NR 14cm Ant Med Mall 0.0 Left Sup Fibular Anti Sensory (Ant Lat Mall) NO RESPONSE 14 cm NR 14 cm Ant Lat Mall 16.0 Right Sup Fibular Anti Sensory (Ant Lat Mall) NO RESPONSE 14 cm NR 14 cm Ant Lat Mall 16.0 Left Sural Anti Sensory (Lat Mall) NO RESPONSE Calf NR Calf Lat Mall 16.0 Right Sural Anti Sensory (Lat Mall) Calf 3.8 15.2 Calf Lat Mall 3.8 16.0 42 Motor Summary Table Stim Site NR Onset (ms) O-P Amp (mV) Site1 Site2 Delta-0 (ms) Dist (cm) James (m/s) Left Peroneal Motor (Vastus Med) Ankle 3.7 0.3 Popit Ankle 9.7 37.0 38 Popit 13.4 0.1 Right Peroneal Motor (Vastus Med) Ankle 3.3 2.0 Popit Ankle 9.0 39.0 43 Popit 12.3 1.4 Left Tibial Motor (Abd Canales Brev) Ankle 4.0 0.2 Knee Ankle 10.9 38.0 35 Knee 14.9 0.5 Right Tibial Motor (Abd Canales Brev) Ankle 4.0 0.7 Knee Ankle 10.0 38.0 38 Knee 14.0 0.5 F Wave Studies NR F-Lat (ms) L-R F-Lat (ms) Left Peroneal (Mrkrs) (EDB) 54.69 0.00 Right Peroneal (Mrkrs) (EDB) 54.69 0.00 Left Tibial (Mrkrs) (Abd Hallucis) 54.27 1.52 Right Tibial (Mrkrs) (Abd Hallucis) 55.79 1.52 EMG Side Muscle Nerve Root Ins Act Fibs Amp Dur Recrt Comment Right AntTibialis Dp Br Fibular L4-5 Nml Nml Nml Nml Nml Right Gastroc Tibial S1-2 Nml Nml Nml Nml Nml Right Fibularis Long Sup Br Fibular L5-S1 Nml Nml Nml Nml Nml Right Flex Dig Long Tibial L5-S2 Nml Nml Nml >12ms +1 Right Ext Dig Brev Dp Br Fibular L5, S1 Nml Nml Nml >12ms +2 Left AntTibialis Dp Br Fibular L4-5 Nml Nml Nml Nml Nml Left Gastroc Tibial S1-2 Nml Nml Nml Nml Nml Left Fibularis Long Sup Br Fibular L5-S1 Nml Nml Nml Nml Nml Left Flex Dig Long Tibial L5-S2 Nml Nml Nml >12ms +1 Left Ext Dig Brev Dp Br Fibular L5, S1 Nml Nml Nml >12ms +2 MTDD
== END 2024-01-26 08:40 | disposition home or self-care (01) ==
LOC: ANHNEURO 08:40
PROVIDERS: PCP Physician Assistant; Visit Provider Physician Assistant
DX: E11.42 Type 2 diabetes mellitus with diabetic polyneuropathy (principal)
CPT/HCPCS: 95886; 95911

== ENCOUNTER 2024-01-27 09:20 | Outpatient (CLI) | payer OTHER, SELFPAY ==
--- NOTE | ~2024-01-27 | XR_ITS ---
Left ankle Technique: AP, oblique, and lateral views were obtained. Clinical History: Pain Findings: No acute fracture or dislocation is seen. Osseous alignment is anatomic. Ankle mortise inta ct. There is advanced degenerative change of the talonavicular and calcaneal cuboid joints. Soft tiss ues are otherwise unremarkable. Impression: Degenerative change of the talonavicular and calcaneal cuboid joints. Reviewed, dictated and finalized at location M. Impression: Degenerative change of the talonavicular and calcaneal cuboid joints.
== END 2024-01-27 09:21 | disposition home or self-care (01) ==
PROVIDERS: PCP Physician Assistant; Visit Provider Physician Assistant
DX: M19.072 Primary osteoarthritis, left ankle and foot (principal)
CPT/HCPCS: 73610; 97110; 97530

== ENCOUNTER 2024-02-24 08:00 | Outpatient (RCR) | payer OTHER, SELFPAY ==
--- NOTE | 2024-01-21 10:05 | PTOPEVAL1 ---
Assessment and note entered by [facility] Evaluation Information Assessment Status Evaluation Diagnosis lack of coordination, frequent falls, impaired balance and gait Onset 01/20/23 Subjective Information Pt. reports that she has been experiencing falls off and on for about 1 year. Pt. recalls majority of her falls being sideways or forward. She states that she has fallen at least 5 times in the past year. Her last fall resulted in a toe fracture. She states that she had a recent stroke , however her symptoms were more related to her speech. She states that she is not currently using an AD. She states that she completes all IADL's without assistance and is able to drive currently. She does recall a hx of arthritis in her low back. She states that she has consider use of a walker due to her falls. She reports that her goal is to improve her balance and get to a point where she is no longer falling. Reported Pain Level Pain Score 3: Self Report Assessment PT Clinical Summary Pt. is a 63 year old female who enters the clinic to address recent falls. she presents with somatosensory deconditioning, impaired gait, impaired l.e. strength and impaired postural awareness. Continued skilled PT is indicated in order to improve these areas to allow for improved safety and efficiency with IADL performance. Plan of Care Interventions Gait Training,Manual Therapy,Neuro Re-education, Patient/Caregiver Educati,Therapeutic Activities, Therapeutic Exercise PT Services Indicated Yes Treatment Frequency and 2x/week x 10 visits Duration These treatments will address the objective and functional deficits as defined above. The patient will be advanced safely and appropriately in order for the patient to progress towards his/her prior level of function. Additional exercises will be introduced and as well as a comprehensive home exercise program upon discharge, if needed, ?to ensure carryover of functional gains achieved in the clinic. This treatment plan has been reviewed and agreement upon by the patient.
--- NOTE | 2024-01-21 10:08 | OPREHPOC ---
Outpatient Therapy Plan of Care This is a Multidisciplinary Plan of Care that may contain components documented by all disciplines (PT, OT, and ST.) PT Problem 1 PT Problem #1 Knowledge Deficit PT Goal 1 Goal Pt. will be independent with a HEP addressing l.e. strength Target Visit 2 PT Problem 2 PT Problem #2 Impaired Balance PT Goal 1 Goal Pt. will improve her tinetti score to 22 or greater indicating decreased fall risk. Target Visit 10 PT Problem 3 PT Problem #3 Impaired Strength PT Goal 1 Goal Pt. will present with 4+/5 gross l.e. strength to improve stability with standing activities. Target Visit 10 PT Problem 4 PT Problem #4 Impaired Functional Mobil PT Goal 1 Goal Pt. will demonstrate equal right and left stance time with gait in order to improve safety with ambulation. Target Visit 10
--- NOTE | 2024-02-04 08:31 | PCPTNOTE ---
Patient cancelled, ill.
--- NOTE | 2024-02-24 08:44 | PTOPDC ---
Assessment and note entered by Jing Ludwig, PT Discharge Information Assessment Status Discharge Diagnosis lack of coordination, frequent falls, impaired balance and gait Onset 01/20/23 Subjective Information doing better--no problems on her 5 steps at home; use the cane, am more stable and not wobbly with it; in the house is walking without the cane; no falls; is back to doing everything she usually does; does not have a cane yet, has been borrowing one and needs to get one for herself; Reported Pain Level Pain Score Self Report Additional Pain Score Comments do have pain in her R calf- hurts 04/18; Assessment PT Clinical Summary Laila has received 8 PT sessions. Compared to the initial eval: no longer has walking boot on L foot; reports she has returned to all of her usual activities; Tinetti balance score from 18 to 25/28; has good gait pattern without device or use of cane; increase strength of LE's; educated on HEP and increase activity as tolerated; The goals were met. Discharge PT and she is to continue with her HEP. Plan of Care PT Services Indicated No
== END 2024-02-24 10:25 | disposition home or self-care (01) ==
LOC: ANHPT 08:00
PROVIDERS: PCP Physician Assistant; Visit Provider Physician Assistant
DX: R27.8 Other lack of coordination (principal)
CPT/HCPCS: 97014; 97110; 97112; 97140; 97161; 97530; G0283

== ENCOUNTER 2024-04-02 09:56 | Emergency (ER) | payer OTHER, SELFPAY ==
[2024-04-02 10:16] VITALS: BP 160/85; PULSE 74; RESP 16; TEMP 36.2; O2SAT 100
--- NOTE | 2024-04-02 10:40 | ED.GENADULT ---
HPI - General Adult General Chief complaint: Nausea/Vomiting/Diarrhea Stated complaint: Diarrhea/Nausea Time Seen by Provider: 04/02/24 10:40 Source: patient, RN notes reviewed and old records reviewed Mode of arrival: ambulatory Limitations: no limitations History of Present Illness HPI narrative: 63-year-old female presents to the [facility] with nausea, diarrhea since Thursday,5 days. Denies any vomiting or abdominal pain. Denies chest pain or shortness of breath. Denies fevers Has taken Tylenol, no other treatment prior to arrival Patient states her blood sugars have been pretty consistent between 120 and 140 Did not take her blood pressure pressure medication this morning due to nausea States there has been no change in her medications. Onset (ago): day(s) (5) Treatments prior to arrival: other (tylenol) Related Data Home Medications Medication Instructions Recorded Confirmed hydroxyzine HCl 25 mg tablet 25 mg PO HS 08/08/23 04/02/24 gabapentin 800 mg tablet 800 mg PO QID 09/24/23 04/02/24 empagliflozin 25 mg tablet 25 mg PO DAILY 12/20/23 04/02/24 (Jardiance) sitagliptin phosphate 100 mg 100 mg PO DAILY 04/02/24 04/02/24 tablet (Januvia) Allergies Allergy/AdvReac Type Severity Reaction Status Date / Time codeine Allergy Intermediate RASH, Verified 04/02/24 10:00 DIFFICULTY BREATHING Review of Systems Review of Systems: All systems reviewed & are unremarkable except as noted in HPI and below Constitutional: Constitutional: Reports no additional constitutional complaints Eyes: Eyes: Reports no additional eye complaints ENT: Reports system reviewed and no additional complaints, except as documented Cardiovascular: Cardiovascular: Reports no additional cardiovascular complaints, Denies chest pain and Denies dyspnea Respiratory: Respiratory: Reports no additional respiratory complaints, Denies chest congestion, Denies cough and Denies dyspnea Gastrointestinal: Gastrointestinal: Reports no additional gastrointestinal complaints, Denies abdominal pain, Reports diarrhea, Reports nausea and Denies vomiting Musculoskeletal: Musculoskeletal: Reports no additional musculoskeletal complaints Integumentary/Breasts: Skin/Breast: Reports system reviewed and no additional complaints, except as docu Neurologic: Reports system reviewed and no additional complaints, except as documented Psychiatric: Psychiatric: Reports no additional psychiatric complaints Allergic/Immunologic: Allergic/Immunologic: Reports no additional allergic/immunologic complaints PMFSH Past Medical History Medical History Acute respiratory failure with hypoxia COVID-19 History of stress test Age 20+ Hyperlipidemia Hypertension Pure hypercholesterolemia, unspecified Type 2 diabetes mellitus with diabetic polyneuropathy Surgical History Surgical History History of ankle surgery History of appendectomy History of History of cholecystectomy History of tonsillectomy Family History Family History Mother Diabetes mellitus Hypertension Cerebrovascular accident Father Heart disease Hypertension Sibling Depression Liver cancer Other Breast cancer Social History Social History Social History: caffeine use Smoking packs per day: 0 Smoking cigarettes per day: 0.0 Years smoked: 0 Smoking pack-years: 0.00 Smoking status: Never smoker Second hand tobacco smoke exposure: Yes Alcohol intake: never Substance use: never Substance use type: does not use Do You Feel Safe in your Home?: Yes Lack of Transportation: No Lack of Food: Often True Current Housing: I Have Housing Concerned About Future Housing: No Difficulty Paying Gas/Electric Bills: No Difficulty Payin
== END 2024-04-02 10:55 | disposition home or self-care (01) ==
PROVIDERS: Emergency Provider Nurse Practitioner; PCP Physician Assistant
DX: K52.9 Noninfective gastroenteritis and colitis, unspecified (principal); E78.5 Hyperlipidemia, unspecified; I10 Essential (primary) hypertension; E78.00 Pure hypercholesterolemia, unspecified; E11.42 Type 2 diabetes mellitus with diabetic polyneuropathy; Z86.16 Personal history of COVID-19
CPT/HCPCS: 99213; G0463

== ENCOUNTER 2024-04-03 23:16 | Emergency (ER) | payer OTHER, SELFPAY ==
--- NOTE | ~2024-04-03 | XR_ITS ---
EXAMINATION: XR chest 1V DATE: 04/04/2024 01:56 INDICATION: Chest pain. TECHNIQUE: A single frontal view of the chest was obtained. COMPARISON: Chest single view 08/07/2023 FINDINGS: There is no pneumonia, pleural effusion, or pneumothorax. The heart size is normal. An elec tronic implant overlies left chest. IMPRESSION: 1. No acute cardiopulmonary disease. Reviewed, dictated and finalized at location E.
--- NOTE | 2024-04-03 23:17 | ECG_ITS ---
SEE SCANNED COPY FOR CONFIRMED REPORT MTDD
[2024-04-03 23:49] LABS: Basophils Absolute Auto 0.1 K/mm3 (0.0-0.1); Basophils Percent Auto 0.6 % (0.2-1.2); Eosinophils Absolute Auto 0.1 K/mm3 (0-0.3); Eosinophils Percent Auto 1.2 % (0-4.4); Hematocrit 43.2 % (37.0-47.0); Hemoglobin 13.8 g/dL (12.0-15.0); Immature Granulocyte Absolute 0.03 K/mm3 (0.00-0.031); Immature Granulocyte Percent A 0.3 % (0-0.5); Lymphocytes Absolute Auto 3.37 K/mm3 (0.9-3.2); Lymphocytes Percent Auto 34.9 % (18.3-44.2); Mean Corpuscular HGB Conc 31.9 g/dl (32-36); Mean Corpuscular Hemoglobin 27.4 pg (26-34); Mean Corpuscular Volume 85.9 fl (80-100); Mean Platelet Volume 9.5 fl (7.4-10.4); Monocytes Absolute Auto 0.7 K/mm3 (0.1-0.6); Monocytes Percent Auto 6.9 % (2.6-8.5); Neutrophils Absolute Auto 5.4 K/mm3 (1.3-6.7); Neutrophils Percent Auto 56.1 % (45.5-73.1); Platelet Count Result 307 k/mm3 (150-375); Red Blood Count 5.03 M/mm3 (4.2-5.4); Red Cell Distribution Width 12.6 % (11.5-14.5); White Blood Count 9.7 K/mm3 (4.5-10.0)
[2024-04-04 00:02] LABS: Partial Thromboplastin Time 27.9 Seconds (22.3-36.8)
[2024-04-04 00:05] LABS: Alanine Aminotransferase 21 U/L (6-35); Albumin Level 4.5 g/dL (3.5-5.1); Alkaline Phosphatase 97 U/L (38-126); Anion Gap 9 mmol/L (4-12); Aspartate Amino Transferase 41 U/L (14-36); Bilirubin,Total 1.4 mg/dL (0.2-1.3); Blood Urea Nitrogen 18 mg/dL (7-17); Calcium 9.7 mg/dL (8.4-10.2); Carbon Dioxide 21 mmol/L (22-30); Chloride 105 mmol/L (98-107); Estimated CRCL calculation 46 ml/min; Estimated Glomerular Filt Rate 38; Glucose 143 mg/dL (65-110); INR 1.1; Lipase 288 U/L (23-300); Potassium 4.6 mmol/L (3.4-5.0); Prothrombin Time 14.3 Seconds (11.1-14.7); Sodium 135 mmol/L (137-145)
[2024-04-04 00:17] LABS: Troponin I < 0.012 ng/mL (0.000-0.034)
[2024-04-04 01:34] VITALS: BP 127/69; PULSE 58; RESP 16; TEMP 36.8; O2SAT 100
[2024-04-04 02:20] VITALS: O2SAT 100
[2024-04-04 02:23] VITALS: BP 151/59; PULSE 54; RESP 18; O2SAT 98
[2024-04-04] MEDS: ASPIRIN 81 MG CHEWABLE TABLET 324 MG PO (02:32)
--- NOTE | 2024-04-04 03:20 | ECG_ITS ---
SEE SCANNED COPY FOR CONFIRMED REPORT MTDD
--- NOTE | 2024-04-04 03:35 | ED.CHESTPAIN ---
HPI - Chest Pain General Chief Complaint: Chest Pain Stated Complaint: Nausea, chest pain Time Seen by Provider: 04/04/24 03:09 Source: patient Limitations: no limitations History of Present Illness HPI narrative: Patient is a 63-year-old female presents to the emergency department complaining of chest discomfort. Patient she has not been feeling overall well for the past week in the tonight around 11:00 p.m. she noticed some dull chest discomfort in the middle of her chest, seems to be getting improved, has not noticed anything that was brain under make it go away, has not tried anything for, denies any history is discomfort in the past, admits to some mild shortness of breath, denies cough or fever. Patient denies history of heart disease. Patient is to history of high blood pressure diabetes high cholesterol. Patient is nonsmoker. Patient is seeing her doctor on regular basis an outpatient and has a loop recorder in place. Patient is to history of stroke. Patient denies new numbness or weakness. Patient denies history of blood clots. Related Data Home Medications Medication Instructions Recorded Confirmed hydroxyzine HCl 25 mg tablet 25 mg PO HS 08/08/23 04/02/24 gabapentin 800 mg tablet 800 mg PO QID 09/24/23 04/02/24 empagliflozin 25 mg tablet 25 mg PO DAILY 12/20/23 04/02/24 (Jardiance) sitagliptin phosphate 100 mg 100 mg PO DAILY 04/02/24 04/02/24 tablet (Januvia) Allergies Allergy/AdvReac Type Severity Reaction Status Date / Time codeine Allergy Intermediate RASH, Verified 04/02/24 10:00 DIFFICULTY BREATHING Review of Systems Review of Systems: All systems reviewed & are unremarkable except as noted in HPI and below PMFSH Past Medical History Medical History Acute respiratory failure with hypoxia COVID-19 History of stress test Age 20+ Hyperlipidemia Hypertension Pure hypercholesterolemia, unspecified Type 2 diabetes mellitus with diabetic polyneuropathy Surgical History Surgical History History of ankle surgery History of appendectomy History of History of cholecystectomy History of tonsillectomy Family History Family History Mother Diabetes mellitus Hypertension Cerebrovascular accident Father Heart disease Hypertension Sibling Depression Liver cancer Other Breast cancer Social History Social History Social History: caffeine use Smoking packs per day: 0 Smoking cigarettes per day: 0.0 Years smoked: 0 Smoking pack-years: 0.00 Smoking status: Never smoker Second hand tobacco smoke exposure: Yes Alcohol intake: never Substance use: never Substance use type: does not use Do You Feel Safe in your Home?: Yes Lack of Transportation: No Lack of Food: Often True Current Housing: I Have Housing Concerned About Future Housing: No Difficulty Paying Gas/Electric Bills: No Difficulty Paying for Meds: YES Currently Unemployed: No Education: Trade/Vocational Certificate Difficulty w/ Childcare or Family Care: No Living arrangements: with family Occupation/Education: occupation Gender identity (if verbalized by the patient): Female Sexual Orientation (if Verbalized by the Patient): Straight or Heterosexual Spiritual care concerns: No Agree to blood products: Yes Comments At time of signature, I have reviewed and agree with nursing past medical, surgical, social and family history unless otherwise noted. Please see the nursing chart for further information. There is no relevant family history pertinent to the presenting complaint. Exam Narrative: CONST: No acute distress. Well nourished. HENMT: Head is normocephalic and atraumatic. Moist mucous membranes. No posterior oropharynx erythem
--- NOTE | 2024-04-04 04:09 | PC.NURSE ---
This RN attempted IV access x2, no success. YOGESH Trimble notified.
[2024-04-04 04:13] LABS: Troponin I < 0.012 ng/mL (0.000-0.034)
[2024-04-04] MEDS: SODIUM CHLORIDE 0.9% IV 1,000 ML 999 ML IV CONT (04:40)
[2024-04-04 04:42] VITALS: BP 150/57; PULSE 56; RESP 16; O2SAT 100
[2024-04-04 05:15] LABS: D Dimer 0.37 ug/mL (<0.48)
== END 2024-04-04 05:40 | disposition home or self-care (01) ==
PROVIDERS: Emergency Provider Student in an Organized Health Care Education/Training Program; PCP Physician Assistant
DX: R07.9 Chest pain, unspecified (principal); N17.9 Acute kidney failure, unspecified; R00.1 Bradycardia, unspecified; I10 Essential (primary) hypertension; E78.5 Hyperlipidemia, unspecified; E11.9 Type 2 diabetes mellitus without complications
CPT/HCPCS: 36415; 71045; 80053; 83690; 84484; 85025; 85380; 85610; 85730; 93005; 96360; 99284; A9270; J7030

== ENCOUNTER 2024-06-07 10:08 | Emergency (ER) | payer MEDICAID, SELFPAY ==
--- NOTE | ~2024-06-07 | XR_ITS ---
XR toe 5th LT min 2V Ordering provider: Alyssia Flores APRN History: . hit left 5th toe on doll house yesterday . Comparison: January 27, 2024 FINDINGS: BONES: No acute fracture or dislocation. Healed fractures in the distal metaphysis of the proximal ph alanx. JOINT SPACES: Osteoarthritic changes of the talonavicular and calcaneocuboid joints. SOFT TISSUES: Normal. IMPRESSION: No acute osseous abnormality. Reviewed, dictated and finalized at location A.
[2024-06-07 10:15] VITALS: BP 145/69; PULSE 66; RESP 16; TEMP 37.2; O2SAT 97
--- NOTE | 2024-06-07 10:20 | ED.EXTPRO ---
HPI - Extremity Problem General Chief complaint: Extremity Problem,Nontraumatic Stated complaint: Left Foot Toe Pain Time Seen by Provider: 06/07/24 10:20 History of Present Illness HPI Narrative: Patient presents with complaints of left 5th toe pain. She reports that she ran into a doll house with her toe yesterday, has had pain since. She has been taking Tylenol for her symptoms, poor relief. She denies any other injury or trauma. She is observed ambulating with a steady gait. Related Data Home Medications Medication Instructions Recorded Confirmed hydroxyzine HCl 25 mg tablet 25 mg PO HS 08/08/23 06/07/24 empagliflozin 25 mg tablet 25 mg PO DAILY 12/20/23 06/07/24 (Jardiance) sitagliptin phosphate 100 mg 100 mg PO DAILY 04/02/24 06/07/24 tablet (Januvia) buspirone 7.5 mg tablet 7.5 mg PO DAILY 06/07/24 06/07/24 pregabalin 300 mg capsule 300 mg PO BID 06/07/24 06/07/24 tramadol 50 mg tablet 50 mg PO TID PRN Pain 06/07/24 06/07/24 Allergies Allergy/AdvReac Type Severity Reaction Status Date / Time codeine Allergy Intermediate RASH, Verified 06/07/24 10:26 DIFFICULTY BREATHING Review of Systems Review of Systems: All systems reviewed & are unremarkable except as noted in HPI and below Constitutional: Constitutional: Reports no additional constitutional complaints ENT: Reports system reviewed and no additional complaints, except as documented Cardiovascular: Cardiovascular: Reports no additional cardiovascular complaints Respiratory: Respiratory: Reports no additional respiratory complaints Gastrointestinal: Gastrointestinal: Reports no additional gastrointestinal complaints Musculoskeletal: Musculoskeletal: Reports no additional musculoskeletal complaints and Reports as per HPI [facility] Past Medical History Medical History Acute respiratory failure with hypoxia COVID-19 History of stress test Age 20+ Hyperlipidemia Hypertension Pure hypercholesterolemia, unspecified Type 2 diabetes mellitus with diabetic polyneuropathy Surgical History Surgical History History of ankle surgery History of appendectomy History of History of cholecystectomy History of tonsillectomy Family History Family History Mother Diabetes mellitus Hypertension Cerebrovascular accident Father Heart disease Hypertension Sibling Depression Liver cancer Other Breast cancer Social History Social History Social History: caffeine use Smoking packs per day: 0 Smoking cigarettes per day: 0.0 Years smoked: 0 Smoking pack-years: 0.00 Smoking status: Never smoker Second hand tobacco smoke exposure: Yes Alcohol intake: never Substance use: never Substance use type: does not use Do You Feel Safe in your Home?: Yes Lack of Transportation: No Lack of Food: Often True Current Housing: I Have Housing Concerned About Future Housing: No Difficulty Paying Gas/Electric Bills: No Difficulty Paying for Meds: YES Currently Unemployed: No Education: Trade/Vocational Certificate Difficulty w/ Childcare or Family Care: No Living arrangements: with family Occupation/Education: occupation Gender identity (if verbalized by the patient): Female Sexual Orientation (if Verbalized by the Patient): Straight or Heterosexual Spiritual care concerns: No Agree to blood products: Yes Exam Const: General: cooperative, no acute distress, alert and awake Orientation/consciousness: oriented to person, oriented to place and oriented to time HENMT: Head: normal to inspection Resp: Effort & Inspection: normal respiratory effort and able to speak in complete sentences Auscultation: clear to auscultation bilaterally, no crackles, no rales, no rhonchi
== END 2024-06-07 10:53 | disposition home or self-care (01) ==
PROVIDERS: Emergency Provider Nurse Practitioner Family; PCP Physician Assistant
DX: M79.675 Pain in left toe(s) (principal); E78.5 Hyperlipidemia, unspecified; I10 Essential (primary) hypertension; E78.00 Pure hypercholesterolemia, unspecified; E11.42 Type 2 diabetes mellitus with diabetic polyneuropathy; Z86.16 Personal history of COVID-19
CPT/HCPCS: 73660; 99213; G0463

== ENCOUNTER 2024-07-25 13:58 | Emergency (ER) | payer OTHER, SELFPAY ==
--- NOTE | ~2024-07-25 | XR_ITS ---
XR humerus RT Ordering provider: Felipe Sanabria APRN History: . fall- right humerus pain on Thursday . Comparison: None. FINDINGS: BONES: No acute fracture or dislocation. JOINT SPACES: Normal. SOFT TISSUES: Normal. IMPRESSION: No acute osseous abnormality right humerus. Reviewed, dictated and finalized at location A.
--- NOTE | ~2024-07-25 | XR_ITS ---
EXAMINATION: XR_CERV2-3V_CR DATE: 07/25/2024 15:53 INDICATION: Posterior neck pain. TECHNIQUE: 3 views of cervical spine were obtained. COMPARISON: None. FINDINGS: There is 3 degrees dextrocurvature of cervical spine. There is 2 mm anterolisthesis of C7 o n T1. Vertebral body heights are normal. There is mildly decreased disc height at C5-C6 and C6-C7. Th ere is multilevel uncovertebral joint osteoarthritis, severe on the right at C5-C6. There is multilev el mild facet joint osteoarthritis. No central canal stenosis or prevertebral soft tissue swelling. IMPRESSION: 1. Mild cervical spondylosis. Reviewed, dictated and finalized at location A.
--- NOTE | ~2024-07-25 | XR_ITS ---
EXAMINATION: XR shoulder RT min 2V DATE: 07/25/2024 15:53 INDICATION: Right shoulder and clavicular pain post fall TECHNIQUE: AP internally and externally rotated and transscapular Y views of the right shoulder were obtained. COMPARISON: None FINDINGS: Normal alignment. No fracture. Glenohumeral joint is normal. Mild to moderate acromioclavicular oste oarthritis. Soft tissues are unremarkable. Visualized portion of the lungs are clear. IMPRESSION: Mild to moderate right acromioclavicular osteoarthritis. No acute osseous abnormality. Reviewed, dictated and finalized at location B. IMPRESSION: Mild to moderate right acromioclavicular osteoarthritis. No acute osseous abnor mality.
[2024-07-25 14:10] VITALS: BP 127/56; PULSE 80; RESP 18; TEMP 36.5; O2SAT 100
--- NOTE | 2024-07-25 14:35 | ED.URI ---
HPI - URI/Sore Throat General Chief Complaint: Upper Respiratory Infection <Felipe Sanabria APRN - Last Filed: 07/25/24 16:14> Stated Complaint: cough,nasal discharge. Neck pain,fell Sun <Felipe Sanabria APRN - Last Filed: 07/25/24 16:14> Time Seen by Provider: 07/25/24 14:15 <Felipe Sanabria APRN - Last Filed: 07/25/24 16:14> Source: patient <Felipe Sanabria APRN - Last Filed: 07/25/24 16:14> Mode of arrival: ambulatory <Felipe Sanabria APRN - Last Filed: 07/25/24 16:14> Limitations: no limitations <Felipe Sanabria APRN - Last Filed: 07/25/24 16:14> History of Present Illness HPI Narrative: May is a 64-year-old female patient presenting to the clinic today with complaints of productive cough, runny nose, and head congestion. She reports this has been going on since Thursday. No known fever or chills. She denies any chest pain or shortness of breath. Also states that she fell on Thursday-felt lightheaded at that time and fell on her right side. Has small amount of bruising and swelling over the right eyebrow, posterior neck pain, right clavicle pain, right shoulder pain, and right humerus pain. <Felipe Sanabria APRN - Last Filed: 07/25/24 16:14> MD elicited complaint: cough, rhinorrhea, nasal congestion and other (Ground level fall-neck pain, right shoulder pain, right humerus pain, right clavicle pain) <Felipe Sanabria APRN - Last Filed: 07/25/24 16:14> Related Data Home Medications: Home Medications Medication Instructions Recorded Confirmed hydroxyzine HCl 25 mg tablet 25 mg PO HS 08/08/23 06/07/24 empagliflozin 25 mg tablet 25 mg PO DAILY 12/20/23 06/07/24 (Jardiance) sitagliptin phosphate 100 mg 100 mg PO DAILY 04/02/24 06/07/24 tablet (Januvia) buspirone 7.5 mg tablet 7.5 mg PO DAILY 06/07/24 06/07/24 pregabalin 300 mg capsule 300 mg PO BID 06/07/24 06/07/24 tramadol 50 mg tablet 50 mg PO TID PRN Pain 06/07/24 06/07/24 <Felipe Sanabria APRN - Last Filed: 07/25/24 16:14> Allergies/Adverse Reactions: Allergies Allergy/AdvReac Type Severity Reaction Status Date / Time codeine Allergy Intermediate RASH, Verified 06/07/24 10:26 DIFFICULTY BREATHING <Felipe Sanabria APRN - Last Filed: 07/25/24 16:14> Review of Systems Review of Systems: Pertinent positives per HPI. Patient denies any fever, chills, rash, headache, visual changes, dizziness, shortness of breath, chest pain, palpitations, nausea, vomiting, diarrhea, constipation, abdominal pain, or any urinary issues. <Felipe Sanabria APRN - Last Filed: 07/25/24 16:14> [facility] Past Medical History Medical History: Medical History Acute respiratory failure with hypoxia COVID-19 History of stress test Age 20+ Hyperlipidemia Hypertension Pure hypercholesterolemia, unspecified Type 2 diabetes mellitus with diabetic polyneuropathy <Felipe Sanabria APRN - Last Filed: 07/25/24 16:14> Surgical History Surgical History: Surgical History History of ankle surgery History of appendectomy History of History of cholecystectomy History of tonsillectomy <Felipe Sanabria APRN - Last Filed: 07/25/24 16:14> Family History Family History: Family History Mother Diabetes mellitus Hypertension Cerebrovascular accident Father Heart disease Hypertension Sibling Depression Liver cancer Other Breast cancer <Felipe Sanabria APRN - Last Filed: 07/25/24 16:14> Social History Social History: Social History Social History: caffeine use Smoking packs per day: 0 Smoking cigarettes per day: 0.0 Years smoked: 0 Smoking pack-years: 0.00 Smoking status: Never s
[2024-07-25 14:42] LABS: EDCOVIDSCREEN Negative (Negative)
== END 2024-07-25 16:07 | disposition home or self-care (01) ==
PROVIDERS: Emergency Provider Nurse Practitioner Family; PCP Physician Assistant
DX: J06.9 Acute upper respiratory infection, unspecified (principal); M25.511 Pain in right shoulder; M79.621 Pain in right upper arm; M54.2 Cervicalgia; W18.30XA Fall on same level, unspecified, initial encounter; Z20.822 Contact with and (suspected) exposure to COVID-19; E78.5 Hyperlipidemia, unspecified; I10 Essential (primary) hypertension; E78.00 Pure hypercholesterolemia, unspecified; E11.42 Type 2 diabetes mellitus with diabetic polyneuropathy; Z86.16 Personal history of COVID-19
CPT/HCPCS: 72040; 73030; 73060; 99214; G0463

== ENCOUNTER 2024-12-17 09:49 | Emergency (ER) | payer OTHER, SELFPAY ==
[2024-12-17 10:02] VITALS: BP 138/56; PULSE 81; RESP 16; TEMP 37.6; O2SAT 97
--- NOTE | 2024-12-17 10:03 | ED_ITS ---
HPI - URI/Sore Throat General Chief Complaint: Upper Respiratory Infection Stated Complaint: sore throat,dizzy,right knee shooting pains Time Seen by Provider: 12/17/24 10:03 Source: patient, RN notes reviewed and old records reviewed Mode of arrival: ambulatory Limitations: no limitations History of Present Illness HPI Narrative: Patient presents with complaints of cough, runny nose, sore throat, low-grade fever and dizziness for 3 days. She has been taking [id number] medications with good results. She denies any shortness of breath. She is diabetic, states that average blood sugar over the past few days has been 130. She has not yet checked today. She is not in any distress. She voices no other concerns or complaints Related Data Home Medications ?Medication ?Instructions ?Recorded ?Confirmed ?Last Taken ?Type hydroxyzine HCl 25 mg tablet 25 mg PO HS 08/08/23 12/17/24 Unknown History empagliflozin 25 mg tablet 25 mg PO DAILY 12/20/23 12/17/24 Unknown History (Jardiance) sitagliptin phosphate 100 mg 100 mg PO DAILY 04/02/24 12/17/24 Unknown History tablet (Januvia) pregabalin 300 mg capsule 300 mg PO BID 06/07/24 12/17/24 Unknown History Allergies Allergy/AdvReac Type Severity Reaction Status Date / Time codeine Allergy Intermediate RASH, Verified 12/17/24 10:03 DIFFICULTY BREATHING Review of Systems Review of Systems: All systems reviewed & are unremarkable except as noted in HPI and below Constitutional: Constitutional: Reports no additional constitutional complaints, Reports fever(s) and Reports headache(s) ENT: Reports system reviewed and no additional complaints, except as documented, Reports as per HPI, Reports nasal congestion, Reports nasal discharge and Reports sore throat Cardiovascular: Cardiovascular: Reports no additional cardiovascular complaints Respiratory: Respiratory: Reports no additional respiratory complaints and Reports cough Gastrointestinal: Gastrointestinal: Reports no additional gastrointestinal complaints [facility] Past Medical History Medical History History of stress test Age 20+ Hyperlipidemia Pure hypercholesterolemia, unspecified Type 2 diabetes mellitus with diabetic polyneuropathy COVID-19 Acute respiratory failure with hypoxia Hypertension Surgical History Surgical History History of tonsillectomy History of ankle surgery History of History of appendectomy History of cholecystectomy Family History Family History Mother Diabetes mellitus Hypertension Cerebrovascular accident Father Heart disease Hypertension Sibling Depression Liver cancer Other Breast cancer Social History Social History Social History: caffeine use Smoking packs per day: 0 Smoking cigarettes per day: 0.0 Years smoked: 0 Smoking pack-years: 0.00 Smoking status: Never smoker Second hand tobacco smoke exposure: Yes Alcohol intake: never Substance use: never Substance use type: does not use Do You Feel Safe in your Home?: Yes Lack of Transportation: No Lack of Food: Often True Current Housing: I Have Housing Concerned About Future Housing: No Difficulty Paying Gas/Electric Bills: No Difficulty Paying for Meds: YES Currently Unemployed: No Education: Trade/Vocational Certificate Difficulty w/ Childcare or Family Care: No Living arrangements: with family Occupation/Education: occupation Gender identity (if verbalized by the patient): Female Sexual Orientation (if Verbalized by the Patient): Straight or Heterosexual Spiritual care concerns: No Agree to blood products: Yes Comments At the time of my signature, I reviewed and agree with the nursing past medical, surgical, social, and family history. There is no relevant family history pertinent to the patient complaint. Exam Const: General: cooperative, no acute distress, alert and awake Orientation/consciousness: oriented to person, oriented to place and oriented to time HENMT: Head: normal to inspection Mouth: Yes moist mucous membranes Throat: posterior oropharynx abnormal erythema and postnasal drainage Resp: Effort & Inspection: normal respiratory effort and able to speak in complete sentences Auscultation: clear to auscultation bilaterally, no crackles, no rales, no rhonchi and no wheezes Cardio: Palpation: normal PMI Rate: regular rate Rhythm: regular rhythm Heart sounds: S1 normal heart sound present and S2 normal heart sound present Neuro: General: oriented to person, oriented to place and oriented to time Cranial nerves: Yes CN's II-XII intact bilaterally Psych: Appearance: grossly normal Thought process: Normal thought process present Insight: Good insight present (Psych) Judgement: Good judgement present (Psych) Course Course Level of Care: Express Care Visit Vital Signs Vital signs: Vital Signs Temperature 99.7 F H 12/17/24 10:02 Pulse Rate 81 12/17/24 10:02 Respiratory Rate 16 12/17/24 10:02 Blood Pressure 138/56 L 12/17/24 10:02 Pulse Oximetry 97 12/17/24 10:02 Oxygen Delivery Room Air 12/17/24 10:02 Temperature 99.7 F H 12/17/24 10:02 Pulse Rate 81 12/17/24 10:02 Respiratory Rate 16 12/17/24 10:02 Blood Pressure 138/56 L 12/17/24 10:02 Pulse Oximetry 97 12/17/24 10:02 Oxygen Delivery Room Air 12/17/24 10:02 Reviewed MDM - URI/Sore Throat MDM Narrative Medical decision making narrative: Negative strep, culture pending. In fluids A positive. Blood glucose non concerning. Symptomatic treatment discussed with patient. She is nontoxic appearing, stable for discharge home with strict emergency department precautions Discharge instructions reviewed with patient, as well as provided in writing per nursing staff. The instructions also include specific and strict return/GO TO THE ER as well as f/u information. All questions have been answered, and the patient deny any further questions with discharge and discharge plan. Some parts of this dictation were generated by voice recognition software and may contain typographical and/or grammatical inaccuracies. Differential Diagnosis Differential diagnosis: Likely upper respiratory infection, otitis media, viral infection and influenza Medical Records Attestation: I reviewed the patient's medical records. Lab Data Attestation: I reviewed the patient's lab results. Discharge Plan Discharge Clinical Impression: Influenza A Patient Disposition: Home, Self-Care Condition: Stable Instructions: Antibiotic Form, Influenza (ED) Additional Instructions: Use medications as prescribed. Follow-up with primary care provider. Emergency department for any new or worsening symptoms Patient Language: Upper Sorbian Prescriptions: New albuterol sulfate [Ventolin HFA] 90 mcg/actuation HFA aerosol inhaler 2 puff inhalation QID PRN (Reason: shortness of breath or wheezing) Qty: 8.5 0RF mometasone [Allergy Nasal (mometasone)] 50 mcg/actuation spray,non-aerosol 2 spray intranasal BID Qty: 17 0RF Rx Instructions: administer into each nostril No Action Jardiance 25 mg tablet 25 mg PO DAILY pregabalin 300 mg capsule 300 mg PO BID Januvia 100 mg tablet 100 mg PO DAILY hydroxyzine HCl 25 mg tablet 25 mg PO HS aspirin [Children's Aspirin] 81 mg Tablet,Chewable 81 mg PO DAILY@0800 Qty: 30 2RF metoprolol tartrate 100 mg tablet 150 mg PO Q12H Qty: 1 0RF Rx Instructions: TAKE 1 & 1/2 (ONE & ONE-HALF) TABLETS BY MOUTH TWICE DAILY (DME) OneTouch Ultra Test Strip See Rx Instructions .Route Qty: 200 0RF Rx Instructions: As directed QID atorvastatin 40 mg tablet 40 mg PO DAILY Qty: 90 1RF metformin 1,000 mg tablet 1,000 mg PO BID Qty: 180 0RF Follow-up/Referrals: Galileo,FITO Laguna [Primary Care Provider] - 1 Week Time of Disposition: 10:27
[2024-12-17 10:16] LABS: Glucose Point of Care 153 mg/dl (65-105)
[2024-12-17 10:30] LABS: EDCOVIDSCREEN Negative (Negative); EDINFLUASCREEN Positive (Negative); EDINFLUBSCREEN Negative (Negative); EDSTREPNEGPOS1 Negative (Negative)
== END 2024-12-17 10:34 | disposition home or self-care (01) ==
PROVIDERS: Emergency Provider Nurse Practitioner Family; PCP Physician Assistant
DX: J10.1 Influenza due to other identified influenza virus with other respiratory manifestations (principal); Z20.822 Contact with and (suspected) exposure to COVID-19; E11.42 Type 2 diabetes mellitus with diabetic polyneuropathy; Z79.84 Long term (current) use of oral hypoglycemic drugs; I10 Essential (primary) hypertension; E78.00 Pure hypercholesterolemia, unspecified; E78.5 Hyperlipidemia, unspecified; Z86.16 Personal history of COVID-19
CPT/HCPCS: 82948; 87081; 87426; 87804; 87880; 99213; G0463

== ENCOUNTER 2025-03-01 01:43 | Observation (INO) | payer OTHER, SELFPAY ==
[2025-03-01] VITALS (12 sets, daily range): BP systolic 102–155; BP diastolic 49–72; PULSE 63–88; RESP 14–22; TEMP 36.1–36.9; O2SAT 93–100; BMI 42.7
--- NOTE | ~2025-03-01 | XR_ITS ---
EXAMINATION: XR ERCP DATE: 03/03/2025 13:09 INDICATION: Choledocholithiasis TECHNIQUE: Multiple spot fluoroscopic images of the right upper quadrant were obtained during endosco pic retrograde cholangiopancreatography (ERCP) performed by Dr. Maximo Garcia. Radiologist was not present for the imaging or procedure. The amount of fluoroscopy time used during this procedure was 2 .0 minutes. A total of 7 fluoroscopic images were recorded. Total DAP was 1.69 mGycm^2. COMPARISON: None. FINDINGS: Initial image demonstrates cholecystectomy clips and a few dropped clips in right upper quadrant. The re is been cannulation and retrograde injection of contrast into the common bile duct which appears d ilated. There is a square filling defect within the common bile duct which corresponds in size and sh ape 2 the previously noted gallstone seen on MRCP. Subsequent images demonstrate balloon sweeping the common bile duct with no residual filling defects suspicious for stone. IMPRESSION: 1. Fluoroscopy utilized during ERCP and likely extraction of choledocholithiasis as seen on prior MRI . Please refer to the ERCP procedure note for additional details. Reviewed, dictated and finalized at location A. IMPRESSION: 1. Fluoroscopy utilized during ERCP and likely extraction of choledocholithiasi s as seen on prior MRI. Please refer to the ERCP procedure note for additional details.
--- NOTE | ~2025-03-01 | MR_ITS ---
EXAMINATION: MR MRCP wo/w con/w 3D wo ind DATE: 03/01/2025 13:27 INDICATION: Intrahepatic and extrahepatic biliary ductal dilation TECHNIQUE: Magnetic resonance imaging (MRI) of the abdomen was performed without and with 20 mL Multi roberto carlos intravenous contrast. Sequences included coronal T2-weighted SS-FSE, coronal T2-weighted FS SS- FSE, coronal T2-weighted FS FIESTA, axial T2-weighted FS FIESTA, axial T2-weighted FIESTA, sagittal T 2-weighted SS-FSE, axial T1-weighted dual-echo FSPGR, axial T2-weighted SS-FSE, axial T1-weighted LAV A, axial T2-weighted STIR FSE. Thick-slab T2-weighted FRFSE-XL images were obtained for magnetic reso nance cholangiopancreatography (MRCP). Rotating maximum intensity projection 3-D reconstructions of t he volumetric data were created by the technologist. Postcontrast sequences included a time course of axial T1-weighted LAVA. COMPARISON: CT dated 03/01/2025 FINDINGS: ABDOMEN MRCP: Diffuse mild intrahepatic biliary ductal dilation. There is also prominent dilation of the common hep atic duct measuring up to 2.1 cm tapering to 1.4 cm in the common hepatic duct. There 3 low signal in tensity gallstones within the distal common bile duct, the largest and most proximal cubital stone me asuring 11 mm per side. ABDOMEN MRI: Heart size is normal. No pericardial or pleural effusion. Liver is normal aside from the intrapedicul ar ductal dilation. Is metallic field artifact associated with cholecystectomy clips the gallbladder fossa. Additional metallic magnetic field artifact centered at the left breast potentially a biopsy m arker. Spleen, pancreas, left adrenal glands and right kidney are normal. 1.5 cm T2 hyperintense none nhancing left renal cyst. 1.3 cm right adrenal nodule with signal dropout on opposed phase imaging wh ich is unchanged since CT dated most consistent with an adenoma. Air-fluid level within a duode nal diverticulum arising from the second portion of the duodenum. Visualized bowels are otherwise unr emarkable with no obstruction. Uterus, bilateral adnexa and visualized portion of the bladder are unr emarkable. No pathologically enlarged abdominal or pelvic lymphadenopathy. Chronic mild T11 compressi on fracture. Moderate spondylosis in the lumbar and lower thoracic spine. Small fat-containing umbili cora hernia and moderate-sized fat-containing supraumbilical ventral hernia. IMPRESSION: 1. Choledocholithiasis in the distal common bile duct with potentially secondary mild intrahepatic ex trahepatic biliary ductal dilation. Correlate with liver function tests. Reviewed, dictated and finalized at location A. IMPRESSION: 1. Choledocholithiasis in the distal common bile duct with potentially secondar y mild intrahepatic extrahepatic biliary ductal dilation. Correlate with liver function tests.
--- NOTE | ~2025-03-01 | CT_ITS ---
CT of the Abdomen and Pelvis: Indication: Abdominal pain Technique: 2.5 mm axial scans were obtained through the abdomen and pelvis following intravenous adm inistration of 100 cc of Omnipaque 350. Dose reduction technique was used on this scan by utilizing a utomated exposure control and iterative reconstruction technique. The dose-length product (DLP) was 1 725.57 mGy-cm. Findings: Scans through the lung bases are unremarkable. Cholecystectomy clips are present. There is prominent intrahepatic and extra hepatic biliary dilatati on, with common bile duct dilated up to 2.1 cm. There are mildly hyperdense filling defects at the di stal common bile duct, measuring up to approximately 15 mm in diameter.. The spleen, pancreas, left a drenal gland, and kidneys are within normal limits. 1.4 cm right adrenal nodule present. No evidence of aortic aneurysm. No lymphadenopathy. No bowel obstruction or bowel wall thickening. There is no evidence to suggest acute appendicitis. Mo derate fat-containing ventral hernia present just superior to the umbilicus. Images through the pelvis were performed. Small amount of air present in the urinary bladder. No adne xal mass evident. No ascites. Impression: Intrahepatic and extrahepatic biliary dilatation with filling defects of the distal common bile duct, consistent with choledocholithiasis. Consider MRCP as indicated. 1.4 cm right adrenal nodule, indeterminate. Consider follow-up MR to assess for adenoma. Moderate fat-containing ventral hernia. Reviewed, dictated and finalized at [facility]. Impression: Intrahepatic and extrahepatic biliary dilatation with filling defects of the di stal common bile duct, consistent with choledocholithiasis. Consider MRCP as in dicated. 1.4 cm right adrenal nodule, indeterminate. Consider follow-up MR to assess for adenoma. Moderate fat-containing ventral hernia.
--- NOTE | ~2025-03-01 | XR_ITS ---
Clinical Indication: Pain PA and lateral views of the chest: Comparison: 04/04/2024 Findings: The lungs are clear, without evidence of focal consolidation or pleural effusion. Cardiome diastinal silhouette is within normal limits, with loop recorder. Bones and soft tissues are unremark able. Impression: Clear lungs. Loop recorder. Reviewed, dictated and finalized at location . Impression: Clear lungs. Loop recorder.
--- NOTE | 2025-03-01 01:50 | ECG_ITS ---
Test Date: 2025-03-01 01:48:38 Measurements Intervals [place] Rate: 86 P: 49 CA: 177 QRS: -17 QRSD: 81 T: 32 QT: 355 QTc: 427 Interpretive Statements SINUS RHYTHM BORDERLINE ST-T WAVE ABNORMALITY- INF/HIGH LAT LEADS BASELINE ARTIFACT- I, II, III, AVR, AVL, AVF, V1-V6 BORDERLINE ECG No previous ECG available for comparison Electronically Signed On 03-01-2025 06:36:59 CDT by Elder Mchugh D.O.
--- NOTE | 2025-03-01 02:00 | PC.NURSE ---
This RN attempted to administer medication. Pt was taken to x-ray. Will administer when pt returns.
[2025-03-01 02:02] LABS: Basophils Percent Auto 0.3 % (0.2-1.2); Eosinophils Percent Auto 0.4 % (0-4.4); Hematocrit 41.2 % (37.0-47.0); Hemoglobin 13.1 g/dL (12.0-15.0); Immature Granulocyte Absolute 0.04 K/mm3 (0.00-0.031); Immature Granulocyte Percent A 0.4 % (0-0.5); Lymphocytes Percent Auto 5.4 % (18.3-44.2); Mean Corpuscular HGB Conc 31.8 g/dl (32-36); Mean Corpuscular Hemoglobin 26.5 pg (26-34); Mean Corpuscular Volume 83.4 fl (80-100); Mean Platelet Volume 9.5 fl (7.4-10.4); Monocytes Absolute Auto 0.5 K/mm3 (0.1-0.6); Monocytes Percent Auto 5.5 % (2.6-8.5); Neutrophils Absolute Auto 8.2 K/mm3 (1.3-6.7); Platelet Count Result 347 k/mm3 (150-375); Red Blood Count 4.94 M/mm3 (4.2-5.4); Red Cell Distribution Width 13.5 % (11.5-14.5); White Blood Count 9.3 K/mm3 (4.5-10.0)
--- NOTE | 2025-03-01 02:09 | ED.GENADULT ---
HPI - General Adult General Chief complaint: Chest Pain Stated complaint: abd pain and epigastric pain going into back monda Time Seen by Provider: 03/01/25 01:52 History of Present Illness HPI narrative: Patient is a 64-year-old female presents emergency department with chief complaint of Chest pain/ epigastric pain. Patient reports that about a week ago she started pain in the epigastric region patient reports that it does not radiate anywhere reports no diaphoresis denies vomiting did reports she has had some loose stools. Patient reports prior history of a cholecystectomy Related Data Home Medications ?Medication ?Instructions ?Recorded ?Confirmed ?Last Taken ?Type hydroxyzine HCl 25 mg tablet 25 mg PO HS 08/08/23 12/17/24 Unknown History empagliflozin 25 mg tablet 25 mg PO DAILY 12/20/23 12/17/24 Unknown History (Jardiance) sitagliptin phosphate 100 mg 100 mg PO DAILY 04/02/24 12/17/24 Unknown History tablet (Januvia) pregabalin 300 mg capsule 300 mg PO BID 06/07/24 12/17/24 Unknown History Allergies Allergy/AdvReac Type Severity Reaction Status Date / Time codeine Allergy Intermediate RASH, Verified 12/17/24 10:03 DIFFICULTY BREATHING Review of Systems Review of Systems: A 10 system review of systems was completed on the patient and is negative except for what is stated in the HPI. Nursing and ancillary documentation was reviewed. REPLACED BY [facility] Past Medical History Medical History History of stress test Age 20+ Hyperlipidemia Pure hypercholesterolemia, unspecified Type 2 diabetes mellitus with diabetic polyneuropathy COVID-19 Acute respiratory failure with hypoxia Hypertension Surgical History Surgical History History of tonsillectomy History of ankle surgery History of History of appendectomy History of cholecystectomy Family History Family History Mother Diabetes mellitus Hypertension Cerebrovascular accident Father Heart disease Hypertension Sibling Depression Liver cancer Other Breast cancer Social History Social History Social History: caffeine use Smoking packs per day: 0 Smoking cigarettes per day: 0.0 Years smoked: 0 Smoking pack-years: 0.00 Smoking status: Never smoker Second hand tobacco smoke exposure: Yes Alcohol intake: never Substance use: never Substance use type: does not use Do You Feel Safe in your Home?: Yes Lack of Transportation: No Lack of Food: Often True Current Housing: I Have Housing Concerned About Future Housing: No Difficulty Paying Gas/Electric Bills: No Difficulty Paying for Meds: YES Currently Unemployed: No Education: Trade/Vocational Certificate Difficulty w/ Childcare or Family Care: No Living arrangements: with family Occupation/Education: occupation Gender identity (if verbalized by the patient): Female Sexual Orientation (if Verbalized by the Patient): Straight or Heterosexual Spiritual care concerns: No Agree to blood products: Yes Exam Narrative: GENERAL: Well-appearing, well-nourished, and in no acute distress. HEAD: Normocephalic, atraumatic. EYES: PERRLA and EOMI. ENT: Nares clear, no rhinorrhea or epistaxis. Mucous membranes moist. NECK: Supple. CHEST: Clear to auscultation. No respiratory distress. HEART: Regular rate and rhythm. No murmur heard. Normal peripheral pulses. ABDOMEN: Soft, Tenderness to palpation in the epigastric, nondistended, normal active bowel sounds. EXTREMITIES: Normal range of motion. No edema. SKIN: Warm, dry, no rash. NEURO: No focal deficits. Alert and oriented x3. PSYCH: Normal mood and affect. Course Vital Signs Vital signs: Vital Signs Temperature 36.7 C 03/01/25 01:42 Pulse Rate 88 03/01/25 01:42 Respiratory Rate 22 H 03/01/25 01:42 Blood Pressure 155/72 H 03/01/25 01:42 Pulse Oximetry 94 03/01/25 01:42 Oxygen Delivery Room Air 03/01/25 01:42 Temperature 36.7 C 03/01/25 01:55 Pulse Rate 68 03/01/25 03:54 Respiratory Rate 22 H 03/01/25 03:54 Blood Pressure 104/53 L 03/01/25 03:54 Pulse Oximetry 95 03/01/25 03:54 Oxygen Delivery Room Air 03/01/25 01:54 Medical Decision Making Vital Signs Vital Signs: Vital Signs Temperature 36.7 C 03/01/25 01:42 Pulse Rate 88 03/01/25 01:42 Respiratory Rate 22 H 03/01/25 01:42 Blood Pressure 155/72 H 03/01/25 01:42 Pulse Oximetry 94 03/01/25 01:42 Oxygen Delivery Room Air 03/01/25 01:42 Temperature 36.7 C 03/01/25 01:55 Pulse Rate 68 03/01/25 03:54 Respiratory Rate 22 H 03/01/25 03:54 Blood Pressure 104/53 L 03/01/25 03:54 Pulse Oximetry 95 03/01/25 03:54 Oxygen Delivery Room Air 03/01/25 01:54 Lab Data 03/01/25 01:57 03/01/25 01:57 Labs: Lab Results 03/01/25 Range/Units 01:57 WBC 9.3 (4.5-10.0) K/mm3 RBC 4.94 (4.2-5.4) M/mm3 Hgb 13.1 (12.0-15.0) g/dL Hct 41.2 (37.0-47.0) % MCV 83.4 (80-100) fl MCH 26.5 (26-34) pg MCHC 31.8 L (32-36) g/dl RDW 13.5 (11.5-14.5) % Plt Count 347 (150-375) k/mm3 MPV 9.5 (7.4-10.4) fl Immature Gran % (Auto) 0.4 (0-0.5) % Neut % (Auto) 88.0 H (45.5-73.1) % Lymph % (Auto) 5.4 L (18.3-44.2) % [place] % (Auto) 5.5 (2.6-8.5) % Eos % (Auto) 0.4 (0-4.4) % Baso % (Auto) 0.3 (0.2-1.2) % Lymph # (Auto) 0.50 L (0.9-3.2) K/mm3 [place] # (Auto) 0.5 (0.1-0.6) K/mm3 Eos # (Auto) 0.0 (0-0.3) K/mm3 Baso # (Auto) 0.0 (0.0-0.1) K/mm3 Abs Immat Gran (auto) 0.04 H (0.00-0.031) K/mm3 Absolute Neuts (auto) 8.2 H (1.3-6.7) K/mm3 Absolute Nucleated RBC 0.000 (0.0-0.012) K/mm3 Nucleated RBC % 0.0 (0.0-0.2) % PT 13.5 (11.1-14.7) Seconds INR 1.0 APTT 28.3 (22.3-36.8) Seconds Sodium 138 (137-145) mmol/L Potassium 3.9 (3.4-5.0) mmol/L Chloride 106 (98-107) mmol/L Carbon Dioxide 19 L (22-30) mmol/L Anion Gap 13 H (4-12) mmol/L BUN 8 D (7-17) mg/dL Creatinine 0.73 (0.7-1.0) mg/dL Estim Creat Clear Calc 88 ml/min Estimated GFR > 60 (59 - ) Glucose 228 H (65-110) mg/dL Calcium 9.2 (8.4-10.2) mg/dL Total Bilirubin 4.6 H (0.2-1.3) mg/dL AST 148 H (14-36) U/L ALT 74 H (6-35) U/L Alkaline Phosphatase 542 H (38-126) U/L Troponin I < 0.012 (0.000-0.034) ng/mL Total Protein 8.0 (6.3-8.2) g/dL Albumin 3.7 (3.5-5.1) g/dL Lipase 107 (23-300) U/L Discharge Plan Discharge Clinical Impression: Choledocholithiasis, Elevated bilirubin, Abdominal pain Patient Disposition: Still a Patient Condition: Stable Patient Language: [place] Prescriptions: No Action Jardiance 25 mg tablet 25 mg PO DAILY pregabalin 300 mg capsule 300 mg PO BID albuterol sulfate [Ventolin HFA] 90 mcg/actuation HFA aerosol inhaler 2 puff inhalation QID PRN (Reason: shortness of breath or wheezing) Qty: 8.5 0RF mometasone [Allergy Nasal (mometasone)] 50 mcg/actuation spray,non-aerosol 2 spray intranasal BID Qty: 17 0RF Rx Instructions: administer into each nostril Januvia 100 mg tablet 100 mg PO DAILY hydroxyzine HCl 25 mg tablet 25 mg PO HS aspirin [Children's Aspirin] 81 mg Tablet,Chewable 81 mg PO DAILY@0800 Qty: 30 2RF metoprolol tartrate 100 mg tablet 150 mg PO Q12H Qty: 1 0RF Rx Instructions: TAKE 1 & 1/2 (ONE & ONE-HALF) TABLETS BY MOUTH TWICE DAILY (DME) OneTouch Ultra Test Strip See Rx Instructions .Route Qty: 200 0RF Rx Instructions: As directed QID atorvastatin 40 mg tablet 40 mg PO DAILY Qty: 90 1RF metformin 1,000 mg tablet 1,000 mg PO BID Qty: 180 0RF Follow-up/Referrals: Galileo,FITO Laguna [Primary Care Provider] - Time of Disposition: 04:09
[2025-03-01 02:11] LABS: Alanine Aminotransferase 74 U/L (6-35); Albumin Level 3.7 g/dL (3.5-5.1); Alkaline Phosphatase 542 U/L (38-126); Anion Gap 13 mmol/L (4-12); Aspartate Amino Transferase 148 U/L (14-36); Bilirubin,Total 4.6 mg/dL (0.2-1.3); Blood Urea Nitrogen 8 mg/dL (7-17); Calcium 9.2 mg/dL (8.4-10.2); Carbon Dioxide 19 mmol/L (22-30); Chloride 106 mmol/L (98-107); Estimated CRCL calculation 88 ml/min; Estimated Glomerular Filt Rate > 60; Glucose 228 mg/dL (65-110); Lipase 107 U/L (23-300); Potassium 3.9 mmol/L (3.4-5.0); Sodium 138 mmol/L (137-145)
[2025-03-01 02:23] LABS: Troponin I < 0.012 ng/mL (0.000-0.034)
[2025-03-01 02:28] LABS: Prothrombin Time 13.5 Seconds (11.1-14.7)
[2025-03-01 02:30] LABS: Partial Thromboplastin Time 28.3 Seconds (22.3-36.8)
[2025-03-01] MEDS: MORPHINE SULFATE (*CRX) 4 MG/ML INJ IV PUSH ×2 (02:35→13:49)
[2025-03-01] MEDS: PANTOPRAZOLE SODIUM IV 40 MG VIAL IV PUSH ×2 (02:36→08:00)
[2025-03-01] MEDS: ONDANSETRON INJ 4 MG/2 ML VIAL IV PUSH (02:36)
[2025-03-01] MEDS: ASPIRIN 81 MG CHEWABLE TABLET 324 MG PO (02:37)
--- OUTSIDE RECORDS SUMMARY | 2025-03-01 03:18 | XMS_ITS | Clinical Summary ---
Author Organization [facility] Care Team Providers Care Insights Analyst Name Role Phone Unavailable Primary Care Provider Unavailabl e Social History Tobacco Use Types Packs/Day Years Used Date Smoking Tobacco: Never Assessed Comments Unknown Sex and Gender Information Value Date Recorded Sex Assigned at Not on file Legal Sex Female 9:08 AM CDT Gender Identity Not on file Sexual Orientation Not on file Plan of Treatment Health Maintenance Due Date Last Done Comments Hepatitis C Virus (HCV) Screening 1961 TdaP Immunization 1961 Pap Smear 1982 Cervical Cancer Screening (CCS) 1991 HPV/Cotest 1991 Colonoscopy 2006 Colorectal Cancer Screening 2006 Cologuard 2011 Immunochemical Fecal Occult Blood 2011 Mammogram 2011 Pneumococcal Immunization (5 0+ years) (1 of 1 - PCV) 2011 Zoster Immunization (1 of 2) 2011 Influenza Immunization (#1) 07/10/2024/0 11/2020, 08/21/2017 SARS-COV-2 Immunization (2 - season) 2024 01/13/2021 Respiratory Syncytial Virus (RSV) Immunization (Adult) (1 - 1-dose 75+ series) 2036 Hepatitis B Immunization Aged Out No longer eligible based on patient's age to complete this topic Meningococcal Immunization (ACWY) Aged Out No longer eligible b ased on patient's age to complete this topic Pneumococcal Immunization Combined Aged Out No longer eligible b ased on patient's age to complete this topic Rotavirus Immunization Aged Out No lo nger eligible based on patient's age to complete this topic
--- OUTSIDE RECORDS SUMMARY | 2025-03-01 03:18 | XMS_ITS | Clinical Summary ---
Author Organization [facility] at the [facility] Office Center Address [address] [place] [address] Care Team Providers Care Patient Support Specialist Name Role Phone Noman Boyle MD Primary Care Prov ider Allergies Active Allergy Reactions Criticality Noted Date Comments Codeine Rash,Headache Medium 08/28/2022 Medications methylPREDNISol one (Medrol, Tad,) 4 mg Dosepack follow package directions 1 packet 2 Active traMADoL (ULTRAM) 50 mg tablet Take 1 tablet (50 mg total) by mouth every 6 (six) hours for 20 doses 20 tablet 2 Active Active Problems Problem Noted Date Diagnosed Date Status post placement of implantable loop record er 08/10/2023 Overview (08/10/2023): Medtr[employer] LNQ22 Loop Recorder. Dx; CVA. DOI 08-10-2023-[place]. [employer]link remote. 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 Gender Identity Not on file Sexual Orientation Not on file Obstetrics History Last Filed Vital Signs Vital Sign Reading Time Taken Comments Blood Pressure 152/88 02/08/2023 4:48 PM CDT Pulse 66 02/08/2023 4:48 PM CDT Temperature 36.6 C (97.8 F) 08/28/2022 6:19 PM CDT Respiratory Rate 18 02/08/2023 4:48 PM CDT Oxygen Saturation 99% 02/08/2023 4:48 PM CDT Inhaled Oxygen Concentration - - Weight 123.8 kg (273 lb) 02/08/2023 4:48 PM CDT Height 167.6 cm (5' 5.98 ) 02/08/2023 4:48 PM CD T Body Mass Index 44.09 02/08/2023 4:48 PM CDT Plan of Treatment Health Maintenance Due Date Last Done Comments Breast Cancer Screening-Mammogram 1961 Cervical Cancer Screening 1961 Colon Cancer Screening-Colonoscopy 1961 Depression Screening 1961 Hepatitis C Screening 1961 DTaP/Tdap/Td Vaccine (1 - Tdap) 1972 Hepatitis B Screening 1979 Regular Well Visit/Exam 18-64 1979 Zoster Vaccine (1 of 2) 2011 Covid-19 Vaccine (2 - 2023-2 5 season) 2024 01/13/2021 Influenza Vaccine (Season Ended) 2025 11/08/2021, 11/09/2020, 08/21/2017 Pneumococcal vaccine <65 Aged Out No longer eligible based on patient's age to complete this topic Insurance [id number] [place] [address] Care Teams Patient Support Specialist Relationship Specialty Start Date End Date Noman Boyle MD [address] [place] [address] PCP - General 01/04/20
--- OUTSIDE RECORDS SUMMARY | 2025-03-01 03:18 | XMS_ITS | Referral Summary ---
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
--- NOTE | 2025-03-01 05:00 | PC.NURSE ---
Blood cultures drawn. 2 RN's needed.
[2025-03-01] MEDS: SODIUM CHLORIDE 0.9% IV 1,000 ML 125 ML IV CONT ×3 (05:14→22:17)
[2025-03-01] MEDS: PIPERACILLN/TAZ 3.375GM/NS50ML 3.375 GM/50 ML BAG IVPB ×3 (05:15→18:21)
--- NOTE | 2025-03-01 05:30 | PC.NURSE ---
Spoke to daughter Bobbi. Answered all questions at this time. Informed of visiting hours and update on pt status.
[2025-03-01 05:54] LABS: Troponin I < 0.012 ng/mL (0.000-0.034)
--- NOTE | 2025-03-01 06:07 | ADMGEN ---
This patient, Laila Gamble, was admitted to 3 [facility] Surg Room 317-01. Patient/family oriented to hospital policies and general routines including ID bracelet, bed and alarms, visiting hours, pain management, procedures, bathroom and other care routines, personal items, smoking policy, room service/diet, and visiting hours. Information on how to activate the Rapid Response Team has been discussed. Patient/Family are encouraged to report perceived risks to care and to ask questions if they do not understand what they are told or what they should do.
[2025-03-01 08:28] LABS: Troponin I < 0.012 ng/mL (0.000-0.034)
--- NOTE | 2025-03-01 10:59 | P.HP_ITS ---
H&P: HPI History of Present Illness Date/Time: 03/01/25 10:59 Chief Complaint: Abdominal pain and epigastric pain Narrative: Patient is a 64 year old female that came to the hospital with abdominal pain and epigastric pain. Patient started a week before Easter then let up. Pain yesterday was a 7', constant, and stabbing. Patient denies pain at present, chest pain, palpitations, heartburn, headache, dizziness, nausea, or vomiting. ER work up showed: Total bilirubin 4.6, AST 148, ALT 74, Alkaline phosphatase 542, anion gap 13. Trop negative x2. Chest X-ray negative. CT abdomen/pelvis Impression: -Intrahepatic and extrahepatic biliary dilatation with filling defects of the distal common bile duct, consistent with choledocholithiasis. Consider MRCP as indicated. -1.4 cm right adrenal nodule, indeterminate. Consider follow-up MR to assess for adenoma. -Moderate fat-containing ventral hernia. MRCP showed: FINDINGS: ABDOMEN MRCP: Diffuse mild intrahepatic biliary ductal dilation. There is also prominent dilation of the common hepatic duct measuring up to 2.1 cm tapering to 1.4 cm in the common hepatic duct. There 3 low signal intensity gallstones within the distal common bile duct, the largest and most proximal cubital stone measuring 11 mm per side. ABDOMEN MRI: Heart size is normal. No pericardial or pleural effusion. Liver is normal aside from the intrapedicular ductal dilation. Is metallic field artifact associated with cholecystectomy clips the gallbladder fossa. Additional metallic magnetic field artifact centered at the left breast potentially a biopsy marker. Spleen, pancreas, left adrenal glands and right kidney are normal. 1.5 cm T2 hyperintense nonenhancing left renal cyst. 1.3 cm right adrenal nodule with signal dropout on opposed phase imaging which is unchanged since CT date most consistent with an adenoma. Air-fluid level within a duodenal diverticulum arising from the second portion of the duodenum. Visualized bowels are otherwise unremarkable with no obstruction. Uterus, bilateral adnexa and visualized portion of the bladder are unremarkable. No pathologically enlarged abdominal or pelvic lymphadenopathy. Chronic mild T11 compression fracture. Moderate spondylosis in the lumbar and lower thoracic spine. Small fat-containing umbilical hernia and moderate-sized fat-containing supraumbilical ventral hernia. IMPRESSION: 1. Choledocholithiasis in the distal common bile duct with potentially secondary mild intrahepatic extrahepatic biliary ductal dilation. Correlate with liver function tests. Review of Systems Review of Systems: All systems reviewed & are unremarkable except as noted in HPI and below PMFSH Past Medical History Medical History History of stress test Age 20+ Hyperlipidemia Pure hypercholesterolemia, unspecified Type 2 diabetes mellitus with diabetic polyneuropathy COVID-19 Acute respiratory failure with hypoxia Hypertension Surgical History Surgical History History of tonsillectomy History of ankle surgery History of History of appendectomy History of cholecystectomy Family History Family History Mother Diabetes mellitus Hypertension Cerebrovascular accident Father Heart disease Hypertension Sibling Depression Liver cancer Other Breast cancer Social History Social History Social History: caffeine use Smoking packs per day: 0 Smoking cigarettes per day: 0.0 Years smoked: 0 Smoking pack-years: 0.00 Smoking status: Never smoker Second hand tobacco smoke exposure: No Alcohol intake: never Substance use: never Substance use type: does not use Do You Feel Safe in your Home?: Yes Lack of Transportation: No Lack of Food: Never True Current Housing: I Have Housing Concerned About Future Housing: No Difficulty Paying Gas/Electric Bills: No Difficulty Paying for Meds: No Currently Unemployed: No Education: High School Diploma/GED Difficulty w/ Childcare or Family Care: No Living arrangements: with family Occupation/Education: occupation Gender identity (if verbalized by the patient): Female Sexual Orientation (if Verbalized by the Patient): Straight or Heterosexual Spiritual care concerns: No Agree to blood products: Yes Meds Home Medications and Allergies Home Medications ?Medication ?Instructions ?Recorded ?Confirmed ?Type blood sugar diagnostic (OneTouch #200 ea 02/01/23 03/01/25 Rx Ultra Test strips) atorvastatin 40 mg tablet 40 mg PO DAILY #90 tabs 07/08/23 03/01/25 Rx hydroxyzine HCl 25 mg tablet 25 mg PO TID PRN anxiety 08/08/23 03/01/25 History aspirin 81 mg chewable tablet 81 mg PO DAILY@0800 #30 tabs 08/11/23 03/01/25 Rx (Children's Aspirin) metoprolol tartrate 100 mg tablet 150 mg (1.5 x 100 mg) PO Q12H #1 08/11/2302/08 Rx tablet metformin 1,000 mg tablet 1,000 mg PO BID #180 tabs 12/03/23 03/01/25 Rx empagliflozin 25 mg tablet 25 mg PO DAILY 12/20/23 03/01/25 History (Jardiance) sitagliptin phosphate 100 mg 100 mg PO DAILY 04/02/24 03/01/25 History tablet (Januvia) pregabalin 300 mg capsule 300 mg PO BID 06/07/24 03/01/25 History albuterol sulfate 90 mcg/actuation 2 puff inhalation QID PRN 12/17/24 03/01/25 Rx aerosol inhaler (Ventolin HFA) shortness of breath or wheezing #8.5 grams mometasone 50 mcg/actuation nasal 2 spray intranasal BID #17 grams 12/17/24 03/01/25 Rx spray (Allergy Nasal (mometasone)) Allergies Allergy/AdvReac Type Severity Reaction Status Date / Time codeine Allergy Intermediate RASH, Verified 12/17/24 10:03 DIFFICULTY BREATHING Vital Signs Vital Signs - 24 hr 03/01/25 01:42 03/01/25 01:47 03/01/25 01:54 Temperature 98.1 F Pulse Rate 88 84 Respiratory Rate 22 H Blood Pressure 155/72 H Pulse Oximetry 94 95 Oxygen Delivery Room Air Room Air 03/01/25 01:54 03/01/25 01:55 03/01/25 02:03 Temperature 98.1 F Pulse Rate 85 Respiratory Rate 14 Blood Pressure 155/72 H 113/52 L Pulse Oximetry 98 100 Oxygen Delivery Room Air 03/01/25 03:54 03/01/25 06:00 03/01/25 08:00 Temperature 98.4 F Pulse Rate 68 66 Respiratory Rate 22 H 20 Blood Pressure 104/53 L 102/63 Pulse Oximetry 95 97 94 Oxygen Delivery Room Air 03/01/25 08:02 Temperature Pulse Rate Respiratory Rate Blood Pressure Pulse Oximetry 94 Oxygen Delivery Room Air Exam Const: General: comfortable and no acute distress Eyes: Sclera: sclerae normal Pupils: Equal, round and reactive pupils present Resp: Effort & Inspection: normal respiratory effort Auscultation: clear to auscultation bilaterally Cardio: Rate: regular rate Rhythm: regular rhythm GI: GI Palp: Yes Soft to palpation Auscultation: normal bowel sounds Neuro: Speech: normal speech Extrem: General: no pedal edema Psych: Mental Status: mental status grossly normal Affect: normal affect H&P: Results Labs Labs: Short CBC 03/01/25 Range/Units 01:57 WBC 9.3 (4.5-10.0) K/mm3 Hgb 13.1 (12.0-15.0) g/dL Hct 41.2 (37.0-47.0) % Plt Count 347 (150-375) k/mm3 BMP 03/01/25 01:57 Sodium 138 Potassium 3.9 Chloride 106 Carbon Dioxide 19 L BUN 8 D Creatinine 0.73 Glucose 228 H Calcium 9.2 Cardiac Enzymes 03/01/25 03/01/25 03/01/25 Range/Units 01:57 05:27 07:56 Troponin I < 0.012 < 0.012 < 0.012 (0.000-0.034) ng/mL Liver Function 03/01/25 Range/Units 01:57 Total Bilirubin 4.6 H (0.2-1.3) mg/dL AST 148 H (14-36) U/L ALT 74 H (6-35) U/L Alkaline Phosphatase 542 H (38-126) U/L Albumin 3.7 (3.5-5.1) g/dL Assessment and Plan Assessment and plan (1) Transaminitis: Code(s): R74.01 - Elevation of levels of liver transaminase levels Status: Acute Assessment and Plan: * Total bilirubin 4.6, AST 148, ALT 74, and alkaline phosphatase 542. Trend labs. * GI consult placed. * NPO * NS @ 125 ml/hr. * MRCP showed: ABDOMEN MRCP: Diffuse mild intrahepatic biliary ductal dilation. There is also prominent dilation of the common hepatic duct measuring up to 2.1 cm tapering to 1.4 cm in the common hepatic duct. There 3 low signal intensity gallstones within the distal common bile duct, the largest and most proximal cubital stone measuring 11 mm per side. ABDOMEN MRI: Heart size is normal. No pericardial or pleural effusion. Liver is normal aside from the intrapedicular ductal dilation. Is metallic field artifact associated with cholecystectomy clips the gallbladder fossa. Additional metallic magnetic field artifact centered at the left breast potentially a biopsy marker. Spleen, pancreas, left adrenal glands and right kidney are normal. 1.5 cm T2 hyperinte nse nonenhancing left renal cyst. 1.3 cm right adrenal nodule with signal dropout on opposed phase imaging which is unchanged since CT dated most consistent with an adenoma. Air-fluid level within a duodenal diverticulum arising from the second portion of the duodenum. Visualized bowels are otherwise unremarkable with no obstruction. Uterus, bilateral adnexa and visualized portion of the bladder are unremarkable. No pathologically enlarged abdominal or pelvic lymphadenopathy. Chronic mild T11 compression fracture. Moderate spondylosis in the lumbar and lower thoracic spine. Small fat-containing umbilical hernia and moderate-sized fat-containing supraumbilical ventral hernia. IMPRESSION: 1. Choledocholithiasis in the distal common bile duct with potentially secondary mild intrahepatic extrahepatic biliary ductal dilation. Correlate with liver function tests. (2) Choledocholithiasis: Code(s): K80.50 - Calculus of bile duct without cholangitis or cholecystitis without obstruction Status: Acute Assessment and Plan: * MRCP showed: ABDOMEN MRCP: Diffuse mild intrahepatic biliary ductal dilation. There is also prominent dilation of the common hepatic duct measuring up to 2.1 cm tapering to 1.4 cm in the common hepatic duct. There 3 low signal intensity gallstones within the distal common bile duct, the largest and most proximal cubital stone measuring 11 mm per side. ABDOMEN MRI: Heart size is normal. No pericardial or pleural effusion. Liver is normal aside from the intrapedicular ductal dilation. Is metallic field artifact associated with cholecystectomy clips the gallbladder fossa. Additional metallic magnetic field artifact centered at the left breast potentially a biopsy marker. Spleen, pancreas, left adrenal glands and right kidney are normal. 1.5 cm T2 hyperintense nonenhancing left renal cyst. 1.3 cm right adrenal nodule with signal dropout on opposed phase imaging which is unchanged since CT dated most consistent with an adenoma. Air-fluid level within a duodenal diverticulum arising from the second portion of the duodenum. Visualized bowels are otherwise unremarkable with no obstruction. Uterus, bilateral adnexa and visualized portion of the bladder are unremarkable. No pathologically enlarged abdominal or pelvic lymphadenopathy. Chronic mild T11 compression fracture. Moderate spondylosis in the lumbar and lower thoracic spine. Small fat-containing umbilical hernia and moderate-sized fat-containing supraumbilical ventral hernia. IMPRESSION: 1. Choledocholithiasis in the distal common bile duct with potentially secondary mild intrahepatic extrahepatic biliary ductal dilation. Correlate with liver function tests. * GI consulted. * NPO. * NS @ 125 ml/hr. * Zosyn 3.375 gram IVPB q 6. * Pantoprazole 40 mg ivp daily. * Ondansetron 4 mg ivp q 4 PRN. * Blood cultures no growth to date. Quality VTE Prophylaxis VTE prophylaxis: mechanical ordered Hospitalist MIPS Advance Care Plan I have confirmed that the patient's Advanced Care Plan is present, code status is documented, or surrogate decision maker is listed in patient medical record.: Yes Medication Reconciliation I have utilized all available resources to obtain, update and review the patients current medications (includes all prescriptions, OTC, herbals, cannabis, and nutritional supplements).: Yes
[2025-03-01 11:11] LABS: Glucose Point of Care 154 mg/dl (65-105)
[2025-03-01 16:16] LABS: Glucose Point of Care 142 mg/dl (65-105)
--- NOTE | 2025-03-01 18:19 | WPDGICN ---
Assessment and Plan Assessment and plan (1) Choledocholithiasis: Code(s): K80.50 - Calculus of bile duct without cholangitis or cholecystitis without obstruction Status: Acute Assessment and Plan: mrcp reviewed, will need ercp probably Thursday, she is better and tolerating liquid diet on iv abx no pancreatitis open cholecystectomy many years ago (2) Transaminitis: Code(s): R74.01 - Elevation of levels of liver transaminase levels Status: Acute Assessment and Plan: probably biliary related (3) Abdominal pain: Code(s): R10.9 - Unspecified abdominal pain Status: Acute (4) Morbid obesity with BMI of 40.0-44.9, adult: Code(s): E66.01 - Morbid (severe) obesity due to excess calories; Z68.41 - Body mass index [BMI] 40.0-44.9, adult Status: Acute (5) Type 2 diabetes mellitus with diabetic polyneuropathy: Code(s): E11.42 - Type 2 diabetes mellitus with diabetic polyneuropathy Status: Acute GI Consult Note Consult date/time: 03/01/25 18:19 Reason for consult: choledocholithiasis HPI: Laila Gamble is a 64 year old female here with abdominal pain and epigastric pain. She had cholecystectomy more than 30 years ago, h/o DM, denies gastric surgery. Pain started a week before Easter then improved but day of admission severe discomfort, constant, and stabbing. Also noted darker urine, no fever. ER showed: Total bilirubin 4.6, AST 148, ALT 74, Alkaline phosphatase 542, anion gap 13. Trop negative x2. Chest X-ray negative. CT abdomen/pelvis Impression: -Intrahepatic and extrahepatic biliary dilatation with filling defects of the distal common bile duct, consistent with choledocholithiasis. Consider MRCP as indicated. -1.4 cm right adrenal nodule, indeterminate. Consider follow-up MR to assess for adenoma. -Moderate fat-containing ventral hernia. MRCP showed: Diffuse mild intrahepatic biliary ductal dilation. There is also prominent dilation of the common hepatic duct measuring up to 2.1 cm tapering to 1.4 cm in the common hepatic duct. There 3 low signal intensity gallstones within the distal common bile duct, the largest and most proximal cubital stone measuring 11 mm per side. Pain is better now and tolerating liquid diet Review of Systems Constitutional: Constitutional: Denies chills Eyes: Eyes: Denies blurry vision ENT: Reports Normal hearing present Cardiovascular: Cardiovascular: Denies chest pain Respiratory: Respiratory: Denies cough Gastrointestinal: Gastrointestinal: Reports abdominal pain Genitourinary: Comments: dark urine Musculoskeletal: Musculoskeletal: Denies neck pain Integumentary/Breasts: Skin/Breast: Denies rash Neurologic: Denies Abnormal speech present [facility] Past Medical History Medical History History of stress test Age 20+ Hyperlipidemia Pure hypercholesterolemia, unspecified Type 2 diabetes mellitus with diabetic polyneuropathy COVID-19 Acute respiratory failure with hypoxia Hypertension Surgical History Surgical History History of tonsillectomy History of ankle surgery History of History of appendectomy History of cholecystectomy Family History Family History Mother Diabetes mellitus Hypertension Cerebrovascular accident Father Heart disease Hypertension Sibling Depression Liver cancer Other Breast cancer Social History Social History Social History: caffeine use Smoking packs per day: 0 Smoking cigarettes per day: 0.0 Years smoked: 0 Smoking pack-years: 0.00 Smoking status: Never smoker Second hand tobacco smoke exposure: No Alcohol intake: never Substance use: never Substance use type: does not use Do You Feel Safe in your Home?: Yes Lack of Transportation: No Lack of Food: Never True Current Housing: I Have Housing Concerned About Future Housing: No Difficulty Paying Gas/Electric Bills: No Difficulty Paying for Meds: No Currently Unemployed: No Education: High School Diploma/GED Difficulty w/ Childcare or Family Care: No Living arrangements: with family Occupation/Education: occupation Gender identity (if verbalized by the patient): Female Sexual Orientation (if Verbalized by the Patient): Straight or Heterosexual Spiritual care concerns: No Agree to blood products: Yes Meds Home Medications and Allergies Home Medications ?Medication ?Instructions ?Recorded ?Confirmed ?Type blood sugar diagnostic (OneTouch #200 ea 02/01/23 03/01/25 Rx Ultra Test strips) atorvastatin 40 mg tablet 40 mg PO DAILY #90 tabs 08/30/23 04/23/25 Rx hydroxyzine HCl 25 mg tablet 25 mg PO TID PRN anxiety 08/08/23 03/01/25 History aspirin 81 mg chewable tablet 81 mg PO DAILY@0800 #30 tabs 08/11/23 03/01/25 Rx (Children's Aspirin) metoprolol tartrate 100 mg tablet 150 mg (1.5 x 100 mg) PO Q12H #1 08/11/23 03/01/25 Rx tablet metformin 1,000 mg tablet 1,000 mg PO BID #180 tabs 12/03/23 03/01/25 Rx empagliflozin 25 mg tablet 25 mg PO DAILY 12/20/23 03/01/25 History (Jardiance) sitagliptin phosphate 100 mg 100 mg PO DAILY 04/02/24 03/01/25 History tablet (Januvia) pregabalin 300 mg capsule 300 mg PO BID 06/07/24 03/01/25 History albuterol sulfate 90 mcg/actuation 2 puff inhalation QID PRN 12/17/24 03/01/25 Rx aerosol inhaler (Ventolin HFA) shortness of breath or wheezing #8.5 grams mometasone 50 mcg/actuation nasal 2 spray intranasal BID #17 grams 12/17/24 03/01/25 Rx spray (Allergy Nasal (mometasone)) Allergies Allergy/AdvReac Type Severity Reaction Status Date / Time codeine Allergy Intermediate RASH, Verified 12/17/24 10:03 DIFFICULTY BREATHING Vital Signs Vital Signs - 24 hr 03/01/25 01:42 03/01/25 01:47 03/01/25 01:54 Temperature 98.1 F Pulse Rate 88 84 Respiratory Rate 22 H Blood Pressure 155/72 H Pulse Oximetry 94 95 Oxygen Delivery Room Air Room Air 03/01/25 01:54 03/01/25 01:55 03/01/25 02:03 Temperature 98.1 F Pulse Rate 85 Respiratory Rate 14 Blood Pressure 155/72 H 113/52 L Pulse Oximetry 98 100 Oxygen Delivery Room Air 03/01/25 03:54 03/01/25 06:00 03/01/25 08:00 Temperature 98.4 F Pulse Rate 68 66 Respiratory Rate 22 H 20 Blood Pressure 104/53 L 102/63 Pulse Oximetry 95 97 94 Oxygen Delivery Room Air 03/01/25 08:02 03/01/25 14:00 Temperature 98.4 F Pulse Rate 63 Respiratory Rate 14 Blood Pressure 116/51 L Pulse Oximetry 94 93 Oxygen Delivery Room Air Exam Const: General: comfortable and no acute distress Other: obese HENMT: Face/Nose/Sinus: Normal nares present Eyes: General: appearance normal, both eyes and all related structures Neck: Neck: supple Resp: Auscultation: clear to auscultation bilaterally Cardio: Rate: regular rate Rhythm: regular rhythm GI: Inspection: non-distended GI Palp: Yes Soft to palpation and Yes Tenderness to palpation present (GI) (mild ttp in epigastric, improved, no rebound) Auscultation: normal bowel sounds Skin: Other: mild icteric sclerae Neuro: Speech: normal speech Motor exam (neuro): 5/5 motor strength present throughout Extrem: General: normal to inspection Psych: Mental Status: mental status grossly normal Results Labs 03/01/25 01:57 03/01/25 01:57 Labs: Short CBC 03/01/25 Range/Units 01:57 WBC 9.3 (4.5-10.0) K/mm3 Hgb 13.1 (12.0-15.0) g/dL Hct 41.2 (37.0-47.0) % Plt Count 347 (150-375) k/mm3 BMP 03/01/25 01:57 Sodium 138 Potassium 3.9 Chloride 106 Carbon Dioxide 19 L BUN 8 D Creatinine 0.73 Glucose 228 H Calcium 9.2 Cardiac Enzymes 03/01/25 03/01/25 03/01/25 Range/Units 01:57 05:27 07:56 Troponin I < 0.012 < 0.012 < 0.012 (0.000-0.034) ng/mL Liver Function 03/01/25 Range/Units 01:57 Total Bilirubin 4.6 H (0.2-1.3) mg/dL AST 148 H (14-36) U/L ALT 74 H (6-35) U/L Alkaline Phosphatase 542 H (38-126) U/L Albumin 3.7 (3.5-5.1) g/dL
[2025-03-01 20:47] LABS: Glucose Point of Care 154 mg/dl (65-105)
[2025-03-02] VITALS (7 sets, daily range): BP systolic 129–148; BP diastolic 49–70; PULSE 49–70; RESP 14–16; TEMP 35.6–36.3; O2SAT 94–98
[2025-03-02] MEDS: PIPERACILLN/TAZ 3.375GM/NS50ML 3.375 GM/50 ML BAG IVPB ×4 (00:17→17:14)
[2025-03-02 00:26] LABS: Glucose Point of Care 128 mg/dl (65-105)
[2025-03-02 05:15] LABS: Glucose Point of Care 120 mg/dl (65-105)
[2025-03-02] MEDS: SODIUM CHLORIDE 0.9% IV 1,000 ML 125 ML IV CONT (06:20)
[2025-03-02 06:26] LABS: Basophils Percent Auto 0.6 % (0.2-1.2); Eosinophils Absolute Auto 0.1 K/mm3 (0-0.3); Eosinophils Percent Auto 1.8 % (0-4.4); Hematocrit 36.7 % (37.0-47.0); Hemoglobin 11.2 g/dL (12.0-15.0); Immature Granulocyte Absolute 0.03 K/mm3 (0.00-0.031); Immature Granulocyte Percent A 0.6 % (0-0.5); Lymphocytes Absolute Auto 1.19 K/mm3 (0.9-3.2); Lymphocytes Percent Auto 21.9 % (18.3-44.2); Mean Corpuscular HGB Conc 30.5 g/dl (32-36); Mean Corpuscular Hemoglobin 26.6 pg (26-34); Mean Corpuscular Volume 87.2 fl (80-100); Mean Platelet Volume 9.5 fl (7.4-10.4); Monocytes Absolute Auto 0.4 K/mm3 (0.1-0.6); Monocytes Percent Auto 6.6 % (2.6-8.5); Neutrophils Absolute Auto 3.7 K/mm3 (1.3-6.7); Neutrophils Percent Auto 68.5 % (45.5-73.1); Platelet Count Result 270 k/mm3 (150-375); Red Blood Count 4.21 M/mm3 (4.2-5.4); Red Cell Distribution Width 14.1 % (11.5-14.5); White Blood Count 5.4 K/mm3 (4.5-10.0)
[2025-03-02 06:35] LABS: Alanine Aminotransferase 50 U/L (6-35); Alkaline Phosphatase 381 U/L (38-126); Anion Gap 11 mmol/L (4-12); Aspartate Amino Transferase 63 U/L (14-36); Bilirubin,Total 3.7 mg/dL (0.2-1.3); Blood Urea Nitrogen 10 mg/dL (7-17); Calcium 8.6 mg/dL (8.4-10.2); Carbon Dioxide 19 mmol/L (22-30); Chloride 110 mmol/L (98-107); Estimated CRCL calculation 85 ml/min; Estimated Glomerular Filt Rate > 60; Glucose 123 mg/dL (65-110); Potassium 3.8 mmol/L (3.4-5.0); Sodium 140 mmol/L (137-145)
[2025-03-02 06:53] LABS: Hemoglobin A1C 7.1 % (<5.7)
[2025-03-02] MEDS: PANTOPRAZOLE SODIUM IV 40 MG VIAL IV PUSH (08:44)
[2025-03-02] MEDS: ATORVASTATIN 40 MG TABLET PO (08:46)
[2025-03-02] MEDS: PREGABALIN (*CRX) 75 MG CAPSULE 300 MG PO ×2 (08:47→17:11)
[2025-03-02] MEDS: METOPROLOL TARTRATE 50 MG TAB 150 MG PO (08:47)
--- NOTE | 2025-03-02 11:19 | P.PNIM_ITS ---
Progress Note: A&P Assessment and Plan (1) Transaminitis: Code(s): R74.01 - Elevation of levels of liver transaminase levels Status: Acute Assessment and Plan: * 03/02/25: Total bilirubin 3.7, AST 63, ALT 50, and alkaline phosphatase 381. Trend labs. * 03/01/25:Total bilirubin 4.6, AST 148, ALT 74, and alkaline phosphatase 542. * GI consult placed. Plan for ERCP tomorrow. * NS @ 75 ml/hr. * MRCP showed: ABDOMEN MRCP: Diffuse mild intrahepatic biliary ductal dilation. There is also prominent dilation of the common hepatic duct measuring up to 2.1 cm tapering to 1.4 cm in the common hepatic duct. There 3 low signal intensity gallstones within the distal common bile duct, the largest and most proximal cubital stone measuring 11 mm per side. ABDOMEN MRI: Heart size is normal. No pericardial or pleural effusion. Liver is normal aside from the intrapedicular ductal dilation. Is metallic field artifact associated with cholecystectomy clips the gallbladder fossa. Additional metallic magnetic field artifact centered at the left breast potentially a biopsy marker. Spleen, pancreas, left adrenal glands and right kidney are normal. 1.5 cm T2 hyperintense nonenhancing left renal cyst. 1.3 cm right adrenal nodule with signal dropout on opposed phase imaging which is unchanged since CT dated most consistent with an adenoma. Air-fluid level within a duodenal diverticulum arising from the second portion of the duodenum. Visualized bowels are otherwise unremarkable with no obstruction. Uterus, bilateral adnexa and visualized portion of the bladder are unremarkable. No pathologically enlarged abdominal or pelvic lymphadenopathy. Chronic mild T11 compression fracture. Moderate spondylosis in the lumbar and lower thoracic spine. Small fat-containing umbilical hernia and moderate-sized fat-containing supraumbilical ventral hernia. IMPRESSION: 1. Choledocholithiasis in the distal common bile duct with potentially secondary mild intrahepatic extrahepatic biliary ductal dilation. Correlate with liver function tests. (2) Choledocholithiasis: Code(s): K80.50 - Calculus of bile duct without cholangitis or cholecystitis without obstruction Status: Acute Assessment and Plan: * MRCP showed: ABDOMEN MRCP: Diffuse mild intrahepatic biliary ductal dilation. There is also prominent dilation of the common hepatic duct measuring up to 2.1 cm tapering to 1.4 cm in the common hepatic duct. There 3 low signal intensity gallstones within the distal common bile duct, the largest and most proximal cubital stone measuring 11 mm per side. ABDOMEN MRI: Heart size is normal. No pericardial or pleural effusion. Liver is normal aside from the intrapedicular ductal dilation. Is metallic field artifact associated with cholecystectomy clips the gallbladder fossa. Additional metallic magnetic field artifact centered at the left breast potentially a biopsy marker. Spleen, pancreas, left adrenal glands and right kidney are normal. 1.5 cm T2 hyperintense nonenhancing left renal cyst. 1.3 cm right adrenal nodule with signal dropout on opposed phase imaging which is unchanged since CT date most consistent with an adenoma. Air-fluid level within a duodenal diverticulum arising from the second portion of the duodenum. Visualized bowels are otherwise unremarkable with no obstruction. Uterus, bilateral adnexa and visualized portion of the bladder are unremarkable. No pathologically enlarged abdominal or pelvic lymphadenopathy. Chronic mild T11 compression fracture. Moderate spondylosis in the lumbar and lower thoracic spine. Small fat-containing umbilical hernia and moderate-sized fat-containing supraumbilical ventral hernia. IMPRESSION: 1. Choledocholithiasis in the distal common bile duct with potentially secondary mild intrahepatic extrahepatic biliary ductal dilation. Correlate with liver function tests. * GI consulted. Plan for ERCP tomorrow. * NS @ 75 ml/hr. * Zosyn 3.375 gram IVPB q 6. * Pantoprazole 40 mg ivp daily. * Ondansetron 4 mg ivp q 4 PRN. * Blood cultures no growth to date. (3) Type 2 diabetes mellitus with diabetic polyneuropathy: Code(s): E11.42 - Type 2 diabetes mellitus with diabetic polyneuropathy Status: Acute Assessment and Plan: * HgbA1C 7.1% on 03/02/25. * SSI, Accu checks, and hypoglycemic protocol. Subjective Date/time seen: 03/02/25 11:19 Interval history: Patient sitting up in chair. Patient denies chest pain, heartburn, nausea, vomiting, or shortness of breath. Patient reports that she did a Cologuard a year ago that was negative. Review of Systems Review of Systems: All systems reviewed & are unremarkable except as noted in HPI and below Exam Const: General: comfortable and no acute distress Resp: Effort & Inspection: normal respiratory effort Auscultation: clear to auscultation bilaterally Cardio: Rate: regular rate Rhythm: regular rhythm GI: GI Palp: Yes Soft to palpation Auscultation: normal bowel sounds Neuro: Speech: normal speech Extrem: General: pedal edema bilaterally (trace edema) Psych: Mental Status: mental status grossly normal Affect: normal affect Objective Data Vital Signs Vital Signs: Vital Signs - 24 hr 03/01/25 14:00 03/01/25 20:55 03/01/25 20:57 Temperature 98.4 F 97.0 F L Pulse Rate 63 68 68 Respiratory Rate 14 16 16 Blood Pressure 116/51 L 117/49 L Pulse Oximetry 93 93 93 Oxygen Delivery Room Air 03/02/25 05:45 03/02/25 08:00 03/02/25 08:47 Temperature 96.1 F L Pulse Rate 62 70 Respiratory Rate 14 Blood Pressure 129/49 L Pulse Oximetry 95 95 Oxygen Delivery Room Air Intake/Output Intake/Output: Intake & Output 02/27/25 02/28/25 03/01/25 03/02/25 23:59 23:59 23:59 23:59 Intake Total 1931.3 1350 Balance 1931.3 1350 Meds/Results Medications: Active Medications Generic Name Dose Route Start Last Admin Trade Name Freq PRN Reason Stop Dose Admin Albuterol 2 puff 03/01/25 11:01 Albuterol Sulfate (*Sp) Aerosol 1 Puff INHALATION QIDRT PRN shortness of breath or wheezing Atorvastatin Calcium 40 mg 03/02/25 09:00 03/02/25 08:46 Atorvastatin 40 Mg Tablet PO 40 mg DAILY RICARDO Administration Dextrose 12.5 gm 03/01/25 09:46 Dextrose 50% 25 Gm/50 Ml Syringe IV PUSH PRN PRN Hypoglycemia Protocol Fluticasone Propionate 2 spray 03/02/25 09:00 03/02/25 08:44 Fluticasone Propionate 0.05% Na Spr 16 Gm Btl (*Bkc) NASAL Not Given QAM RICARDO Glucagon 1 mg 03/01/25 09:46 Glucagon For Inj 1 Mg Vial IM PRN PRN Hypoglycemia Protocol Glucose 15 gm 03/01/25 09:46 Glucose Oral Gel 15 Gm Of Glucse In 37.5 Gm Tube PO PRN PRN Hypoglycemia Protocol Hydroxyzine HCl 25 mg 03/02/25 08:06 Hydroxyzine Hcl 25 Mg Tablet PO TID PRN anxiety Piperacillin/Tazobactam/Dextrose 3.375 gm in 50 mls @ 100 mls/hr 03/01/25 12:00 03/02/25 05:49 Zosyn 3.375 Gm/Ns 50 Ml IVPB 100 mls/hr Q6HR RICARDO Administration Sodium Chloride 1,000 mls @ 75 mls/hr 03/01/25 04:00 03/02/25 06:20 Normal Saline Iv IV CONT 125 mls/hr .[id number] RICARDO Administration Dextrose 1,000 mls @ 100 mls/hr 03/01/25 09:46 Dextrose 5% 1,000 Ml IVPB PRN PRN Hypoglycemia Protocol Insulin Aspart 4 - 8 units 03/02/25 12:00 Insulin Aspart (*Bkc) 100 Units/Ml SUB-Q TIDWM RICARDO Protocol Insulin Aspart 2 - 4 units 03/02/25 21:00 Insulin Aspart (*Bkc) 100 Units/Ml SUB-Q HS RICARDO Protocol Metoprolol Tartrate 150 mg 03/02/25 09:00 03/02/25 08:47 Metoprolol Tartrate 50 Mg Tab PO 150 mg Q12H RICARDO Administration Morphine Sulfate 4 mg 03/01/25 03:59 03/01/25 13:49 Morphine Sulfate (*Crx) 4 Mg/Ml Inj IV PUSH 4 mg Q2H PRN Administration Pain Rated 7-10 Ondansetron HCl 4 mg 03/01/25 03:59 Ondansetron Inj 4 Mg/2 Ml Vial IV PUSH Q4H PRN Nausea Pantoprazole Sodium 40 mg 03/01/25 09:00 03/02/25 08:44 Pantoprazole Sodium Iv 40 Mg Vial IV PUSH 40 mg QAM RICARDO Administration Pregabalin 300 mg 03/02/25 09:00 03/02/25 08:47 Pregabalin (*Crx) 75 Mg Capsule PO 300 mg BID RICARDO Administration Radiology Results: ITS Impressions Chest X-Ray 03/01/25 05:25 Impression: Clear lungs. Loop recorder. Abdomen/Pelvis CT 03/01/25 06:08 Impression: Intrahepatic and extrahepatic biliary dilatation with filling defects of the distal common bile duct, consistent with choledocholithiasis. Consider MRCP as indicated. 1.4 cm right adrenal nodule, indeterminate. Consider follow-up MR to assess for adenoma. Moderate fat-containing ventral hernia. MRCP 03/01/25 14:03 IMPRESSION: 1. Choledocholithiasis in the distal common bile duct with potentially secondary mild intrahepatic extrahepatic biliary ductal dilation. Correlate with liver function tests. Labs Labs: Laboratory Results - last 24 hr 03/01/25 03/01/25 03/02/25 16:04 19:55 00:24 WBC RBC Hgb Hct MCV MCH MCHC RDW Plt Count MPV Immature Gran % (Auto) Neut % (Auto) Lymph % (Auto) [place] % (Auto) Eos % (Auto) Baso % (Auto) Lymph # (Auto) [place] # (Auto) Eos # (Auto) Baso # (Auto) Abs Immat Gran (auto) Absolute Neuts (auto) Absolute Nucleated RBC Nucleated RBC % Sodium Potassium Chloride Carbon Dioxide Anion Gap BUN Creatinine Estim Creat Clear Calc Estimated GFR Glucose POC Capillary Glucose 142 H 154 H 128 H Hemoglobin A1c Calcium Magnesium Total Bilirubin AST ALT Alkaline Phosphatase Total Protein Albumin 03/02/25 03/02/25 05:11 06:14 WBC 5.4 RBC 4.21 Hgb 11.2 L Hct 36.7 L MCV 87.2 MCH 26.6 MCHC 30.5 L RDW 14.1 Plt Count 270 MPV 9.5 Immature Gran % (Auto) 0.6 H Neut % (Auto) 68.5 Lymph % (Auto) 21.9 [place] % (Auto) 6.6 Eos % (Auto) 1.8 Baso % (Auto) 0.6 Lymph # (Auto) 1.19 [place] # (Auto) 0.4 Eos # (Auto) 0.1 Baso # (Auto) 0.0 Abs Immat Gran (auto) 0.03 Absolute Neuts (auto) 3.7 Absolute Nucleated RBC 0.000 Nucleated RBC % 0.0 Sodium 140 Potassium 3.8 Chloride 110 H Carbon Dioxide 19 L Anion Gap 11 BUN 10 Creatinine 0.75 Estim Creat Clear Calc 85 Estimated GFR > 60 Glucose 123 H POC Capillary Glucose 120 H Hemoglobin A1c 7.1 H Calcium 8.6 Magnesium 2.0 Total Bilirubin 3.7 H AST 63 H ALT 50 H Alkaline Phosphatase 381 H Total Protein 6.0 L Albumin 3.0 L Quality VTE Prophylaxis VTE prophylaxis: mechanical ordered
[2025-03-02 11:47] LABS: Glucose Point of Care 112 mg/dl (65-105)
--- NOTE | 2025-03-02 16:22 | WPDGIPROGNO ---
Progress Note: A&P Assessment and Plan (1) Choledocholithiasis: Code(s): K80.50 - Calculus of bile duct without cholangitis or cholecystitis without obstruction Status: Acute Assessment and Plan: plan is ercp tomorrow to remove stones trend liver enzymes she is more comfortable today (2) Abdominal pain: Code(s): R10.9 - Unspecified abdominal pain Status: Acute (3) Transaminitis: Code(s): R74.01 - Elevation of levels of liver transaminase levels Status: Acute (4) Morbid obesity with BMI of 40.0-44.9, adult: Code(s): E66.01 - Morbid (severe) obesity due to excess calories; Z68.41 - Body mass index [BMI] 40.0-44.9, adult Status: Acute (5) History of cholecystectomy: Code(s): Z90.49 - Acquired absence of other specified parts of digestive tract Status: Acute Subjective Date/time seen: 03/02/25 16:22 Interval history: pain is much better and has been tolerating liquid diet urine still dark Review of Systems Review of Systems: All systems reviewed & are unremarkable except as noted in HPI and below Exam Const: General: comfortable and no acute distress Other: obese HENMT: Face/Nose/Sinus: Normal nares present Eyes: General: appearance normal, both eyes and all related structures Neck: Neck: supple Resp: Auscultation: clear to auscultation bilaterally Cardio: Rate: regular rate Rhythm: regular rhythm GI: Inspection: non-distended GI Palp: Yes Soft to palpation and Yes Tenderness to palpation present (GI) (mild ttp in epigastric, improved, no rebound) Auscultation: normal bowel sounds Skin: Other: mild icteric sclerae Neuro: Speech: normal speech Motor exam (neuro): 5/5 motor strength present throughout Extrem: General: normal to inspection Psych: Mental Status: mental status grossly normal Objective Data Vital Signs Vital Signs: Vital Signs - 24 hr 03/01/25 20:55 03/01/25 20:57 03/02/25 05:45 Temperature 97.0 F L 96.1 F L Pulse Rate 68 68 62 Respiratory Rate 16 16 14 Blood Pressure 117/49 L 129/49 L Pulse Oximetry 93 93 95 Oxygen Delivery Room Air 03/02/25 08:00 03/02/25 08:47 Temperature Pulse Rate 70 Respiratory Rate Blood Pressure Pulse Oximetry 95 Oxygen Delivery Room Air Intake/Output Intake/Output: Intake & Output 02/27/25 02/28/25 03/01/25 03/02/25 23:59 23:59 23:59 23:59 Intake Total 193.3 2026. Balance 193.3 Meds/Results Medications: Active Medications Generic Name Dose Route Start Last Admin Trade Name Freq PRN Reason Stop Dose Admin Albuterol 2 puff 03/01/25 11:01 Albuterol Sulfate (*Sp) Aerosol 1 Puff INHALATION QIDRT PRN shortness of breath or wheezing Atorvastatin Calcium 40 mg 03/02/25 09:00 03/02/25 08:46 Atorvastatin 40 Mg Tablet PO 40 mg DAILY RICARDO Administration Dextrose 12.5 gm 03/01/25 09:46 Dextrose 50% 25 Gm/50 Ml Syringe IV PUSH PRN PRN Hypoglycemia Protocol Fluticasone Propionate 2 spray 03/02/25 09:00 03/02/25 08:44 Fluticasone Propionate 0.05% Na Spr 16 Gm Btl (*Bkc) NASAL Not Given QAM RICARDO Glucagon 1 mg 03/01/25 09:46 Glucagon For Inj 1 Mg Vial IM PRN PRN Hypoglycemia Protocol Glucose 15 gm 03/01/25 09:46 Glucose Oral Gel 15 Gm Of Glucse In 37.5 Gm Tube PO PRN PRN Hypoglycemia Protocol Hydroxyzine HCl 25 mg 03/02/25 08:06 Hydroxyzine Hcl 25 Mg Tablet PO TID PRN anxiety Piperacillin/Tazobactam/Dextrose 3.375 gm in 50 mls @ 100 mls/hr 03/01/25 12:00 03/02/25 11:40 Zosyn 3.375 Gm/Ns 50 Ml IVPB 100 mls/hr Q6HR RICARDO Administration Sodium Chloride 1,000 mls @ 75 mls/hr 03/01/25 04:00 03/02/25 11:21 Normal Saline Iv IV CONT 75 mls/hr .[id number] RICARDO Infusion Dextrose 1,000 mls @ 100 mls/hr 03/01/25 09:46 Dextrose 5% 1,000 Ml IVPB PRN PRN Hypoglycemia Protocol Indomethacin 50 mg 03/03/25 11:30 Indomethacin 50 Mg Supp.Rect RECTAL 03/03/25 11:31 ONCE ONE Insulin Aspart 4 - 8 units 03/02/25 12:00 03/02/25 14:26 Insulin Aspart (*Bkc) 100 Units/Ml SUB-Q Not Given TIDWM [facility] Protocol Insulin Aspart 2 - 4 units 03/02/25 21:00 Insulin Aspart (*Bkc) 100 Units/Ml SUB-Q HS [facility] Protocol Metoprolol Tartrate 150 mg 03/02/25 09:00 03/02/25 08:47 Metoprolol Tartrate 50 Mg Tab PO 150 mg Q12H RICARDO Administration Morphine Sulfate 4 mg 03/01/25 03:59 03/01/25 13:49 Morphine Sulfate (*Crx) 4 Mg/Ml Inj IV PUSH 4 mg Q2H PRN Administration Pain Rated 7-10 Ondansetron HCl 4 mg 03/01/25 03:59 Ondansetron Inj 4 Mg/2 Ml Vial IV PUSH Q4H PRN Nausea Pantoprazole Sodium 40 mg 03/01/25 09:00 03/02/25 08:44 Pantoprazole Sodium Iv 40 Mg Vial IV PUSH 40 mg QAM RICARDO Administration Pregabalin 300 mg 03/02/25 09:00 03/02/25 08:47 Pregabalin (*Crx) 75 Mg Capsule PO 300 mg BID RICARDO Administration Radiology Results: ITS Impressions Chest X-Ray 03/01/25 05:25 Impression: Clear lungs. Loop recorder. Abdomen/Pelvis CT 03/01/25 06:08 Impression: Intrahepatic and extrahepatic biliary dilatation with filling defects of the distal common bile duct, consistent with choledocholithiasis. Consider MRCP as indicated. 1.4 cm right adrenal nodule, indeterminate. Consider follow-up MR to assess for adenoma. Moderate fat-containing ventral hernia. MRCP 03/01/25 14:03 IMPRESSION: 1. Choledocholithiasis in the distal common bile duct with potentially secondary mild intrahepatic extrahepatic biliary ductal dilation. Correlate with liver function tests. Labs Labs: Laboratory Results - last 24 hr 03/01/25 03/02/25 03/02/25 19:55 00:24 05:11 WBC RBC Hgb Hct MCV MCH MCHC RDW Plt Count MPV Immature Gran % (Auto) Neut % (Auto) Lymph % (Auto) [place] % (Auto) Eos % (Auto) Baso % (Auto) Lymph # (Auto) [place] # (Auto) Eos # (Auto) Baso # (Auto) Abs Immat Gran (auto) Absolute Neuts (auto) Absolute Nucleated RBC Nucleated RBC % Sodium Potassium Chloride Carbon Dioxide Anion Gap BUN Creatinine Estim Creat Clear Calc Estimated GFR Glucose POC Capillary Glucose 154 H 128 H 120 H Hemoglobin A1c Calcium Magnesium Total Bilirubin AST ALT Alkaline Phosphatase Total Protein Albumin 03/02/25 03/02/25 06:14 11:29 WBC 5.4 RBC 4.21 Hgb 11.2 L Hct 36.7 L MCV 87.2 MCH 26.6 MCHC 30.5 L RDW 14.1 Plt Count 270 MPV 9.5 Immature Gran % (Auto) 0.6 H Neut % (Auto) 68.5 Lymph % (Auto) 21.9 [place] % (Auto) 6.6 Eos % (Auto) 1.8 Baso % (Auto) 0.6 Lymph # (Auto) 1.19 [place] # (Auto) 0.4 Eos # (Auto) 0.1 Baso # (Auto) 0.0 Abs Immat Gran (auto) 0.03 Absolute Neuts (auto) 3.7 Absolute Nucleated RBC 0.000 Nucleated RBC % 0.0 Sodium 140 Potassium 3.8 Chloride 110 H Carbon Dioxide 19 L Anion Gap 11 BUN 10 Creatinine 0.75 Estim Creat Clear Calc 85 Estimated GFR > 60 Glucose 123 H POC Capillary Glucose 112 H Hemoglobin A1c 7.1 H Calcium 8.6 Magnesium 2.0 Total Bilirubin 3.7 H AST 63 H ALT 50 H Alkaline Phosphatase 381 H Total Protein 6.0 L Albumin 3.0 L
[2025-03-02] MEDS: SODIUM CHLORIDE 0.9% IV 1,000 ML 75 ML IV CONT (17:12)
[2025-03-02 17:22] LABS: Glucose Point of Care 126 mg/dl (65-105)
[2025-03-02 21:02] LABS: Glucose Point of Care 127 mg/dl (65-105)
[2025-03-03] VITALS (17 sets, daily range): BP systolic 130–178; BP diastolic 56–80; PULSE 54–78; RESP 16–26; TEMP 35.8–36.7; O2SAT 95–100
[2025-03-03] MEDS: PIPERACILLN/TAZ 3.375GM/NS50ML 3.375 GM/50 ML BAG IVPB ×3 (00:47→18:42)
[2025-03-03 06:21] LABS: Basophils Percent Auto 0.7 % (0.2-1.2); Eosinophils Absolute Auto 0.1 K/mm3 (0-0.3); Immature Granulocyte Absolute 0.02 K/mm3 (0.00-0.031); Immature Granulocyte Percent A 0.4 % (0-0.5); Lymphocytes Absolute Auto 1.95 K/mm3 (0.9-3.2); Lymphocytes Percent Auto 34.6 % (18.3-44.2); Mean Corpuscular HGB Conc 30.6 g/dl (32-36); Mean Corpuscular Hemoglobin 26.5 pg (26-34); Mean Corpuscular Volume 86.7 fl (80-100); Mean Platelet Volume 9.5 fl (7.4-10.4); Monocytes Absolute Auto 0.4 K/mm3 (0.1-0.6); Monocytes Percent Auto 7.1 % (2.6-8.5); Neutrophils Absolute Auto 3.1 K/mm3 (1.3-6.7); Neutrophils Percent Auto 55.2 % (45.5-73.1); Platelet Count Result 301 k/mm3 (150-375); Red Blood Count 4.15 M/mm3 (4.2-5.4); Red Cell Distribution Width 14.1 % (11.5-14.5); White Blood Count 5.6 K/mm3 (4.5-10.0)
[2025-03-03 06:34] LABS: Alanine Aminotransferase 35 U/L (6-35); Albumin Level 2.8 g/dL (3.5-5.1); Alkaline Phosphatase 336 U/L (38-126); Anion Gap 6 mmol/L (4-12); Aspartate Amino Transferase 41 U/L (14-36); Bilirubin,Total 2.1 mg/dL (0.2-1.3); Blood Urea Nitrogen 8 mg/dL (7-17); Calcium 8.5 mg/dL (8.4-10.2); Carbon Dioxide 24 mmol/L (22-30); Chloride 111 mmol/L (98-107); Estimated CRCL calculation 81 ml/min; Estimated Glomerular Filt Rate > 60; Glucose 121 mg/dL (65-110); Magnesium 2.1 mg/dL (1.6-2.3); Potassium 4.3 mmol/L (3.4-5.0); Sodium 141 mmol/L (137-145)
[2025-03-03 08:04] LABS: Glucose Point of Care 116 mg/dl (65-105)
[2025-03-03] MEDS: METOPROLOL TARTRATE 50 MG TAB 150 MG PO ×2 (09:38→20:13)
[2025-03-03] MEDS: PANTOPRAZOLE SODIUM IV 40 MG VIAL IV PUSH (09:40)
[2025-03-03 11:31] LABS: Glucose Point of Care 119 mg/dl (65-105)
[2025-03-03] MEDS: LACTATED RINGERS 1,000 ML 150 ML IV CONT (11:31)
--- NOTE | 2025-03-03 11:31 | P.PNAN_ITS ---
Anes - Initial Pre Proc Eval Procedure: Operation Date: 03/03/25 15:00 Proposed Procedures p Endoscopic Retro Cholangiopancreatogram - Db James MD Date/Time: 03/03/25 11:31 Surgeon: Rufina Colindres MD Pre Op Diagnosis: choledocholithiasis, elevated transaminases Patient Data Age: 64 Gender: F Height: 1.65 m Weight: 116.4 kg Last Vital Signs Temp 96.4 F L 03/03/25 11:24 Pulse 54 L 03/03/25 11:24 Resp 19 03/03/25 11:24 BP 162/63 H 03/03/25 11:24 Pulse Ox 100 03/03/25 11:24 O2 Del Method Room Air 03/03/25 11:24 Allergies Allergy/AdvReac Type Severity Reaction Status Date / Time codeine Allergy Intermediate RASH, Verified 03/03/25 11:22 DIFFICULTY BREATHING Home Medications ?Medication ?Instructions ?Recorded ?Confirmed ?Type blood sugar diagnostic (OneTouch #200 ea 02/01/23 03/01/25 Rx Ultra Test strips) atorvastatin 40 mg tablet 40 mg PO DAILY #90 tabs 07/08/23 03/01/25 Rx hydroxyzine HCl 25 mg tablet 25 mg PO TID PRN anxiety 08/08/23 03/01/25 History aspirin 81 mg chewable tablet 81 mg PO DAILY@0800 #30 tabs 08/11/23 03/01/25 Rx (Children's Aspirin) metoprolol tartrate 100 mg tablet 150 mg (1.5 x 100 mg) PO Q12H #1 08/11/23 03/01/25 Rx tablet metformin 1,000 mg tablet 1,000 mg PO BID #180 tabs 12/03/23 03/01/25 Rx empagliflozin 25 mg tablet 25 mg PO DAILY 12/20/23 03/01/25 History (Jardiance) sitagliptin phosphate 100 mg 100 mg PO DAILY 04/02/24 03/01/25 History tablet (Januvia) pregabalin 300 mg capsule 300 mg PO BID 06/07/24 03/01/25 History albuterol sulfate 90 mcg/actuation 2 puff inhalation QID PRN 12/17/24 03/01/25 Rx aerosol inhaler (Ventolin HFA) shortness of breath or wheezing #8.5 grams mometasone 50 mcg/actuation nasal 2 spray intranasal BID #17 grams 12/17/24 03/01/25 Rx spray (Allergy Nasal (mometasone)) Laboratory Tests 03/02/25 03/02/25 03/02/25 11:29 17:13 20:11 WBC RBC Hgb Hct MCV MCH MCHC RDW Plt Count MPV Immature Gran % (Auto) Neut % (Auto) Lymph % (Auto) [place] % (Auto) Eos % (Auto) Baso % (Auto) Lymph # (Auto) [place] # (Auto) Eos # (Auto) Baso # (Auto) Abs Immat Gran (auto) Absolute Neuts (auto) Absolute Nucleated RBC Nucleated RBC % Sodium Potassium Chloride Carbon Dioxide Anion Gap BUN Creatinine Estim Creat Clear Calc Estimated GFR Glucose POC Capillary Glucose 112 H mg/dl 126 H mg/dl 127 H mg/dl (65-105) (65-105) (65-105) Calcium Magnesium Total Bilirubin AST ALT Alkaline Phosphatase Total Protein Albumin 03/03/25 03/03/25 03/03/25 06:01 07:44 11:29 WBC 5.6 K/mm3 (4.5-10.0) RBC 4.15 L M/mm3 (4.2-5.4) Hgb 11.0 L g/dL (12.0-15.0) Hct 36.0 L % (37.0-47.0) MCV 86.7 fl (80-100) MCH 26.5 pg (26-34) MCHC 30.6 L g/dl (32-36) RDW 14.1 % (11.5-14.5) Plt Count 301 k/mm3 (150-375) MPV 9.5 fl (7.4-10.4) Immature Gran % (Auto) 0.4 % (0-0.5) Neut % (Auto) 55.2 % (45.5-73.1) Lymph % (Auto) 34.6 % (18.3-44.2) [place] % (Auto) 7.1 % (2.6-8.5) Eos % (Auto) 2.0 % (0-4.4) Baso % (Auto) 0.7 % (0.2-1.2) Lymph # (Auto) 1.95 K/mm3 (0.9-3.2) [place] # (Auto) 0.4 K/mm3 (0.1-0.6) Eos # (Auto) 0.1 K/mm3 (0-0.3) Baso # (Auto) 0.0 K/mm3 (0.0-0.1) Abs Immat Gran (auto) 0.02 K/mm3 (0.00-0.031) Absolute Neuts (auto) 3.1 K/mm3 (1.3-6.7) Absolute Nucleated RBC 0.000 K/mm3 (0.0-0.012) Nucleated RBC % 0.0 % (0.0-0.2) Sodium 141 mmol/L (137-145) Potassium 4.3 mmol/L (3.4-5.0) Chloride 111 H mmol/L (98-107) Carbon Dioxide 24 mmol/L (22-30) Anion Gap 6 mmol/L (4-12) BUN 8 mg/dL (7-17) Creatinine 0.79 mg/dL (0.7-1.0) Estim Creat Clear Calc 81 ml/min Estimated GFR > 60 (59 - ) Glucose 121 H mg/dL (65-110) POC Capillary Glucose 116 H mg/dl 119 H mg/dl (65-105) (65-105) Calcium 8.5 mg/dL (8.4-10.2) Magnesium 2.1 mg/dL (1.6-2.3) Total Bilirubin 2.1 H mg/dL (0.2-1.3) AST 41 H U/L (14-36) ALT 35 U/L (6-35) Alkaline Phosphatase 336 H U/L (38-126) Total Protein 6.0 L g/dL (6.3-8.2) Albumin 2.8 L g/dL (3.5-5.1) Patient hx anesthesia problems: none Family hx anesthesia problems: none Results Review: All pre-operative results and documents have been reviewed as part of the pre- operative evaluation. [facility] Past Medical History Medical History (Updated 03/01/25 @ 17:26 by Cortney Armenta, KAL) History of stress test Age 20+ Hyperlipidemia Pure hypercholesterolemia, unspecified Type 2 diabetes mellitus with diabetic polyneuropathy COVID-19 Acute respiratory failure with hypoxia Hypertension Surgical History Surgical History (Updated 03/02/25 @ 16:23 by Db Jaems MD) History of tonsillectomy History of ankle surgery History of History of appendectomy History of cholecystectomy Family History Family History Mother Diabetes mellitus Hypertension Cerebrovascular accident Father Heart disease Hypertension Sibling Depression Liver cancer Other Breast cancer Social History Social History Social History: caffeine use Smoking packs per day: 0 Smoking cigarettes per day: 0.0 Years smoked: 0 Smoking pack-years: 0.00 Smoking status: Never smoker Second hand tobacco smoke exposure: No Alcohol intake: never Substance use: never Substance use type: does not use Do You Feel Safe in your Home?: Yes Lack of Transportation: No Lack of Food: Never True Current Housing: I Have Housing Concerned About Future Housing: No Difficulty Paying Gas/Electric Bills: No Difficulty Paying for Meds: No Currently Unemployed: No Education: High School Diploma/GED Difficulty w/ Childcare or Family Care: No Living arrangements: with family Occupation/Education: occupation Gender identity (if verbalized by the patient): Female Sexual Orientation (if Verbalized by the Patient): Straight or Heterosexual Spiritual care concerns: No Agree to blood products: Yes Anes - Eval Final PreProcedure Day of Procedure 03/03/25 11:31 Patient weight: morbidly obese Heart: regular rate and rhythm Lungs: clear to auscultation Airway: Mallampati scale class III Neurological: alert and oriented Last oral intake: >/= 8 hours ASA classification: IV Emergent: no Anesthetic plan: proceed Anesthesia type and monitoring: general ETT and standard monitoring Results Review: All pre-operative results and documents have been reviewed as part of the pre- operative evaluation. Informed Consent: The patient's anesthetic plan and its attendant risks and benefits were discussed with the patient/family/POA. Questions were solicited and answers provided to the satisfaction of the patient/family/POA.
[2025-03-03] MEDS: INDOMETHACIN 50 MG SUPP.RECT RECTAL (12:35)
--- NOTE | 2025-03-03 15:10 | P.PNIM_ITS ---
Progress Note: A&P Assessment and Plan (1) Transaminitis: Code(s): R74.01 - Elevation of levels of liver transaminase levels Status: Acute Assessment and Plan: * 03/03/25: Total bilirubin 2.1, AST 41, ALT 35, and alkaline phosphatase 336. Trend labs. * 03/02/25: Total bilirubin 3.7, AST 63, ALT 50, and alkaline phosphatase 381. * 03/01/25:Total bilirubin 4.6, AST 148, ALT 74, and alkaline phosphatase 542. * GI consult placed. Plan for ERCP tomorrow. * NS @ 75 ml/hr. * MRCP showed: ABDOMEN MRCP: Diffuse mild intrahepatic biliary ductal dilation. There is also prominent dilation of the common hepatic duct measuring up to 2.1 cm tapering to 1.4 cm in the common hepatic duct. There 3 low signal intensity gallstones within the distal common bile duct, the largest and most proximal cubital stone measuring 11 mm per side. ABDOMEN MRI: Heart size is normal. No pericardial or pleural effusion. Liver is normal aside from the intrapedicular ductal dilation. Is metallic field artifact associated with cholecystectomy clips the gallbladder fossa. Additional metallic magnetic field artifact centered at the left breast potentially a biopsy marker. Spleen, pancreas, left adrenal glands and right kidney are normal. 1.5 cm T2 hyperintense nonenhancing left renal cyst. 1.3 cm right adrenal nodule with signal dropout on opposed phase imaging which is unchanged since CT dated most consistent with an adenoma. Air-fluid level within a duodenal diverticulum arising from the second portion of the duodenum. Visualized bowels are otherwise unremarkable with no obstruction. Uterus, bilateral adnexa and visualized portion of the bladder are unremarkable. No pathologically enlarged abdominal or pelvic lymphadenopathy. Chronic mild T11 compression fracture. Moderate spondylosis in the lumbar and lower thoracic spine. Small fat-containing umbilical hernia and moderate-sized fat-containing supraumbilical ventral hernia. IMPRESSION: 1. Choledocholithiasis in the distal common bile duct with potentially secondary mild intrahepatic extrahepatic biliary ductal dilation. Correlate with liver function tests. (2) Choledocholithiasis: Code(s): K80.50 - Calculus of bile duct without cholangitis or cholecystitis without obstruction Status: Acute Assessment and Plan: * MRCP showed: ABDOMEN MRCP: Diffuse mild intrahepatic biliary ductal dilation. There is also prominent dilation of the common hepatic duct measuring up to 2.1 cm tapering to 1.4 cm in the common hepatic duct. There 3 low signal intensity gallstones within the distal common bile duct, the largest and most proximal cubital stone measuring 11 mm per side. ABDOMEN MRI: Heart size is normal. No pericardial or pleural effusion. Liver is normal aside from the intrapedicular ductal dilation. Is metallic field artifact associated with cholecystectomy clips the gallbladder fossa. Additional metallic magnetic field artifact centered at the left breast potentially a biopsy marker. Spleen, pancreas, left adrenal glands and right kidney are normal. 1.5 cm T2 hyperinten se nonenhancing left renal cyst. 1.3 cm right adrenal nodule with signal dropout on opposed phase imaging which is unchanged since CT date most consistent with an adenoma. Air-fluid level within a duodenal diverticulum arising from the second portion of the duodenum. Visualized bowels are otherwise unremarkable with no obstruction. Uterus, bilateral adnexa and visualized portion of the blad galina are unremarkable. No pathologically enlarged abdominal or pelvic lymphadenopathy. Chronic mild T11 compression fracture. Moderate spondylosis in the lumbar and lower thoracic spine. Small fat-containing umbilical hernia and moderate-sized fat-containing supraumbilical ventral hernia. IMPRESSION: 1. Choledocholithiasis in the distal common bile duct with potentially secondary mild intrahepatic extrahepatic biliary ductal dilation. Correlate with liver function tests. * GI consulted. Plan for ERCP tomorrow. * NS @ 75 ml/hr. * Zosyn 3.375 gram IVPB q 6. * Pantoprazole 40 mg ivp daily. * Ondansetron 4 mg ivp q 4 PRN. * Blood cultures no growth to date. * ERCP today showed multiple stones were observed in the common bile duct. A stone extraction was performed (noted multiple stones, largest 1 cm with sludge removed). Occlusion cholangiogram after multiple balloon sweeps with normal bile duct without any more filling defects. (3) Type 2 diabetes mellitus with diabetic polyneuropathy: Code(s): E11.42 - Type 2 diabetes mellitus with diabetic polyneuropathy Status: Acute Assessment and Plan: * HgbA1C 7.1% on 03/02/25. * SSI, Accu checks, and hypoglycemic protocol. Subjective Date/time seen: 03/03/25 15:10 Interval history: Patient status post ERCP with removal of stones. Patient denies chest pain, palpitations, headache, dizziness, or vomiting. Patient reports a little nausea. Review of Systems Review of Systems: All systems reviewed & are unremarkable except as noted in HPI and below Exam Const: General: comfortable and no acute distress Resp: Effort & Inspection: normal respiratory effort Auscultation: clear to auscultation bilaterally Cardio: Rate: regular rate Rhythm: regular rhythm GI: GI Palp: Yes Soft to palpation Auscultation: normal bowel sounds Neuro: Speech: normal speech Extrem: General: no pedal edema Psych: Mental Status: mental status grossly normal Affect: normal affect Objective Data Vital Signs Vital Signs: Vital Signs - 24 hr 03/02/25 20:30 03/02/25 20:55 03/02/25 20:55 Temperature 96.8 F L Pulse Rate 51 L 49 L 57 L Respiratory Rate 16 16 Blood Pressure 131/70 Pulse Oximetry 98 94 Oxygen Delivery Room Air Oxygen Flow Rate 03/02/25 22:00 03/03/25 06:00 03/03/25 09:38 Temperature 96.2 F L 98.0 F Pulse Rate 57 L 58 L 58 L Respiratory Rate 16 16 Blood Pressure 136/69 168/64 H Pulse Oximetry 94 98 Oxygen Delivery Oxygen Flow Rate 03/03/25 11:24 03/03/25 13:10 03/03/25 13:20 Temperature 96.4 F L 97.2 F L Pulse Rate 54 L 59 L 57 L Respiratory Rate 19 26 H 18 Blood Pressure 162/63 H 138/56 L 144/65 H Pulse Oximetry 100 100 100 Oxygen Delivery Room Air Simple Face Mask Simple Face Mask Oxygen Flow Rate 8 8 03/03/25 13:30 03/03/25 13:40 03/03/25 13:50 Temperature 96.8 F L Pulse Rate 58 L 57 L 60 Respiratory Rate 18 19 16 Blood Pressure 160/70 H 155/69 H 159/72 H Pulse Oximetry 98 98 99 Oxygen Delivery Room Air Room Air Room Air Oxygen Flow Rate 03/03/25 14:00 03/03/25 14:10 Temperature 96.5 F L Pulse Rate 56 L 55 L Respiratory Rate 19 21 H Blood Pressure 157/69 H 145/80 H Pulse Oximetry 100 99 Oxygen Delivery Room Air Room Air Oxygen Flow Rate Intake/Output Intake/Output: Intake & Output 04/22/25 04/23/25 04/24/25 04/25/25 23:59 23:59 23:59 23:59 Intake Total 1931.3 2500.0 1350 Balance 1931.3 2500.0 1350 Meds/Results Medications: Active Medications Generic Name Dose Route Start Last Admin Trade Name Freq PRN Reason Stop Dose Admin Albuterol 2 puff 03/01/25 11:01 Albuterol Sulfate (*Sp) Aerosol 1 Puff INHALATION QIDRT PRN shortness of breath or wheezing Atorvastatin Calcium 40 mg 03/02/25 09:00 03/03/25 09:37 Atorvastatin 40 Mg Tablet PO Not Given DAILY RICARDO Dextrose 12.5 gm 03/01/25 09:46 Dextrose 50% 25 Gm/50 Ml Syringe IV PUSH PRN PRN Hypoglycemia Protocol Fluticasone Propionate 2 spray 03/02/25 09:00 03/03/25 09:40 Fluticasone Propionate 0.05% Na Spr 16 Gm Btl (*Bkc) NASAL Not Given QAM RICARDO Glucagon 1 mg 03/01/25 09:46 Glucagon For Inj 1 Mg Vial IM PRN PRN Hypoglycemia Protocol Glucose 15 gm 03/01/25 09:46 Glucose Oral Gel 15 Gm Of Glucse In 37.5 Gm Tube PO PRN PRN Hypoglycemia Protocol Hydroxyzine HCl 25 mg 03/02/25 08:06 Hydroxyzine Hcl 25 Mg Tablet PO TID PRN anxiety Piperacillin/Tazobactam/Dextrose 3.375 gm in 50 mls @ 100 mls/hr 03/01/25 12:00 03/03/25 12:00 Zosyn 3.375 Gm/Ns 50 Ml IVPB Not Given Q6HR RICARDO Sodium Chloride 1,000 mls @ 75 mls/hr 03/01/25 04:00 03/03/25 11:00 Normal Saline Iv IV CONT Infused .[id number] RICARDO Infusion Dextrose 1,000 mls @ 100 mls/hr 03/01/25 09:46 Dextrose 5% 1,000 Ml IVPB PRN PRN Hypoglycemia Protocol Insulin Aspart 4 - 8 units 03/02/25 12:00 03/03/25 12:37 Insulin Aspart (*Bkc) 100 Units/Ml SUB-Q Not Given TIDWM [facility] Protocol Insulin Aspart 2 - 4 units 03/02/25 21:00 03/02/25 23:23 Insulin Aspart (*Bkc) 100 Units/Ml SUB-Q Not Given HS RICARDO Protocol Metoprolol Tartrate 150 mg 03/02/25 09:00 03/03/25 09:38 Metoprolol Tartrate 50 Mg Tab PO 150 mg Q12H RICARDO Administration Morphine Sulfate 4 mg 03/01/25 03:59 03/01/25 13:49 Morphine Sulfate (*Crx) 4 Mg/Ml Inj IV PUSH 4 mg Q2H PRN Administration Pain Rated 7-10 Ondansetron HCl 4 mg 03/01/25 03:59 Ondansetron Inj 4 Mg/2 Ml Vial IV PUSH Q4H PRN Nausea Pantoprazole Sodium 40 mg 03/01/25 09:00 03/03/25 09:40 Pantoprazole Sodium Iv 40 Mg Vial IV PUSH 40 mg QAM RICARDO Administration Pregabalin 300 mg 03/02/25 09:00 03/03/25 09:37 Pregabalin (*Crx) 75 Mg Capsule PO Not Given BID [facility] Radiology Results: ITS Impressions Chest X-Ray 03/01/25 05:25 Impression: Clear lungs. Loop recorder. Abdomen/Pelvis CT 03/01/25 06:08 Impression: Intrahepatic and extrahepatic biliary dilatation with filling defects of the distal common bile duct, consistent with choledocholithiasis. Consider MRCP as indicated. 1.4 cm right adrenal nodule, indeterminate. Consider follow-up MR to assess for adenoma. Moderate fat-containing ventral hernia. MRCP 03/01/25 14:03 IMPRESSION: 1. Choledocholithiasis in the distal common bile duct with potentially secondary mild intrahepatic extrahepatic biliary ductal dilation. Correlate with liver function tests. Labs Labs: Laboratory Results - last 24 hr 03/02/25 03/02/25 03/03/25 17:13 20:11 06:01 WBC 5.6 RBC 4.15 L Hgb 11.0 L Hct 36.0 L MCV 86.7 MCH 26.5 MCHC 30.6 L RDW 14.1 Plt Count 301 MPV 9.5 Immature Gran % (Auto) 0.4 Neut % (Auto) 55.2 Lymph % (Auto) 34.6 [place] % (Auto) 7.1 Eos % (Auto) 2.0 Baso % (Auto) 0.7 Lymph # (Auto) 1.95 [place] # (Auto) 0.4 Eos # (Auto) 0.1 Baso # (Auto) 0.0 Abs Immat Gran (auto) 0.02 Absolute Neuts (auto) 3.1 Absolute Nucleated RBC 0.000 Nucleated RBC % 0.0 Sodium 141 Potassium 4.3 Chloride 111 H Carbon Dioxide 24 Anion Gap 6 BUN 8 Creatinine 0.79 Estim Creat Clear Calc 81 Estimated GFR > 60 Glucose 121 H POC Capillary Glucose 126 H 127 H Calcium 8.5 Magnesium 2.1 Total Bilirubin 2.1 H AST 41 H ALT 35 Alkaline Phosphatase 336 H Total Protein 6.0 L Albumin 2.8 L 03/03/25 03/03/25 07:44 11:29 WBC RBC Hgb Hct MCV MCH MCHC RDW Plt Count MPV Immature Gran % (Auto) Neut % (Auto) Lymph % (Auto) [place] % (Auto) Eos % (Auto) Baso % (Auto) Lymph # (Auto) [place] # (Auto) Eos # (Auto) Baso # (Auto) Abs Immat Gran (auto) Absolute Neuts (auto) Absolute Nucleated RBC Nucleated RBC % Sodium Potassium Chloride Carbon Dioxide Anion Gap BUN Creatinine Estim Creat Clear Calc Estimated GFR Glucose POC Capillary Glucose 116 H 119 H Calcium Magnesium Total Bilirubin AST ALT Alkaline Phosphatase Total Protein Albumin Quality VTE Prophylaxis VTE prophylaxis: mechanical ordered
[2025-03-03] MEDS: SODIUM CHLORIDE 0.9% IV 1,000 ML 75 ML IV CONT (15:14)
[2025-03-03 16:59] LABS: Glucose Point of Care 168 mg/dl (65-105)
[2025-03-03] MEDS: PREGABALIN (*CRX) 75 MG CAPSULE 300 MG PO (18:42)
[2025-03-03 20:55] LABS: Glucose Point of Care 172 mg/dl (65-105)
[2025-03-04] MEDS: PIPERACILLN/TAZ 3.375GM/NS50ML 3.375 GM/50 ML BAG IVPB ×3 (00:51→11:20)
[2025-03-04] MEDS: SODIUM CHLORIDE 0.9% IV 1,000 ML 75 ML IV CONT (04:44)
[2025-03-04 04:58] VITALS: BP 135/61; PULSE 49; RESP 14; TEMP 36.4; O2SAT 95
[2025-03-04 05:35] LABS: Basophils Percent Auto 0.2 % (0.2-1.2); Hematocrit 36.9 % (37.0-47.0); Hemoglobin 11.8 g/dL (12.0-15.0); Immature Granulocyte Absolute 0.03 K/mm3 (0.00-0.031); Immature Granulocyte Percent A 0.5 % (0-0.5); Lymphocytes Absolute Auto 1.12 K/mm3 (0.9-3.2); Lymphocytes Percent Auto 17.5 % (18.3-44.2); Mean Corpuscular Hemoglobin 26.9 pg (26-34); Mean Corpuscular Volume 84.1 fl (80-100); Mean Platelet Volume 9.4 fl (7.4-10.4); Monocytes Absolute Auto 0.3 K/mm3 (0.1-0.6); Monocytes Percent Auto 5.3 % (2.6-8.5); Neutrophils Absolute Auto 4.9 K/mm3 (1.3-6.7); Neutrophils Percent Auto 76.5 % (45.5-73.1); Platelet Count Result 337 k/mm3 (150-375); Red Blood Count 4.39 M/mm3 (4.2-5.4); Red Cell Distribution Width 13.7 % (11.5-14.5); White Blood Count 6.4 K/mm3 (4.5-10.0)
[2025-03-04 05:52] LABS: Alanine Aminotransferase 30 U/L (6-35); Alkaline Phosphatase 306 U/L (38-126); Anion Gap 9 mmol/L (4-12); Aspartate Amino Transferase 32 U/L (14-36); Bilirubin,Total 1.5 mg/dL (0.2-1.3); Blood Urea Nitrogen 10 mg/dL (7-17); Calcium 8.6 mg/dL (8.4-10.2); Carbon Dioxide 20 mmol/L (22-30); Chloride 108 mmol/L (98-107); Estimated CRCL calculation 86 ml/min; Estimated Glomerular Filt Rate > 60; Glucose 139 mg/dL (65-110); Magnesium 1.9 mg/dL (1.6-2.3); Sodium 137 mmol/L (137-145)
[2025-03-04 07:49] LABS: Glucose Point of Care 123 mg/dl (65-105)
[2025-03-04] MEDS: PANTOPRAZOLE SODIUM IV 40 MG VIAL IV PUSH (08:05)
[2025-03-04 08:10] VITALS: PULSE 64
[2025-03-04] MEDS: ATORVASTATIN 40 MG TABLET PO (08:10)
[2025-03-04] MEDS: METOPROLOL TARTRATE 50 MG TAB 150 MG PO (08:10)
[2025-03-04] MEDS: PREGABALIN (*CRX) 75 MG CAPSULE 300 MG PO (08:13)
--- NOTE | 2025-03-04 11:24 | PM.IMPN ---
Subjective Date/time seen: 03/04/25 11:24 Review of Systems Review of Systems: All systems reviewed & are unremarkable except as noted in HPI and below Objective Data Vital Signs Vital Signs: Vital Signs - 24 hr 03/03/25 13:10 03/03/25 13:20 03/03/25 13:30 Temperature 97.2 F L 96.8 F L Pulse Rate 59 L 57 L 58 L Respiratory Rate 26 H 18 18 Blood Pressure 138/56 L 144/65 H 160/70 H Pulse Oximetry 100 100 98 Oxygen Delivery Simple Face Mask Simple Face Mask Room Air Oxygen Flow Rate 8 8 03/03/25 13:40 03/03/25 13:50 03/03/25 14:00 Temperature Pulse Rate 57 L 60 56 L Respiratory Rate 19 16 19 Blood Pressure 155/69 H 159/72 H 157/69 H Pulse Oximetry 98 99 100 Oxygen Delivery Room Air Room Air Room Air Oxygen Flow Rate 03/03/25 14:10 03/03/25 14:25 03/03/25 14:40 Temperature 96.5 F L 97.3 F L 97.1 F L Pulse Rate 55 L 78 58 L Respiratory Rate 21 H 18 18 Blood Pressure 145/80 H 130/67 168/64 H Pulse Oximetry 99 100 97 Oxygen Delivery Room Air Oxygen Flow Rate 03/03/25 15:10 03/03/25 16:10 03/03/25 20:13 Temperature 97.5 F L 97.6 F Pulse Rate 56 L 71 60 Respiratory Rate 18 20 Blood Pressure 178/65 H 170/60 H Pulse Oximetry 100 95 Oxygen Delivery Oxygen Flow Rate 03/03/25 20:15 03/03/25 20:39 03/04/25 04:58 Temperature 97.4 F L 97.5 F L Pulse Rate 56 L 56 L 49 L Respiratory Rate 16 16 14 Blood Pressure 152/56 H 135/61 Pulse Oximetry 100 100 95 Oxygen Delivery Room Air Oxygen Flow Rate 03/04/25 08:00 03/04/25 08:10 Temperature Pulse Rate 64 Respiratory Rate Blood Pressure Pulse Oximetry Oxygen Delivery Room Air Oxygen Flow Rate Intake/Output Intake/Output: Intake & Output 03/01/25 03/02/25 03/03/25 03/04/25 23:59 23:59 23:59 23:59 Intake Total 1.3 2500.0 2180 1460 Balance 1931.3 2500.0 2180 1460 Meds/Results Medications: Active Medications Generic Name Dose Route Start Last Admin Trade Name Freq PRN Reason Stop Dose Admin Albuterol 2 puff 03/01/25 11:01 Albuterol Sulfate (*Sp) Aerosol 1 Puff INHALATION QIDRT PRN shortness of breath or wheezing Atorvastatin Calcium 40 mg 03/02/25 09:00 03/04/25 08:10 Atorvastatin 40 Mg Tablet PO 40 mg DAILY RICARDO Administration Dextrose 12.5 gm 03/01/25 09:46 Dextrose 50% 25 Gm/50 Ml Syringe IV PUSH PRN PRN Hypoglycemia Protocol Fluticasone Propionate 2 spray 03/02/25 09:00 03/04/25 08:15 Fluticasone Propionate 0.05% Na Spr 16 Gm Btl (*Bkc) NASAL Not Given QAM RICARDO Glucagon 1 mg 03/01/25 09:46 Glucagon For Inj 1 Mg Vial IM PRN PRN Hypoglycemia Protocol Glucose 15 gm 03/01/25 09:46 Glucose Oral Gel 15 Gm Of Glucse In 37.5 Gm Tube PO PRN PRN Hypoglycemia Protocol Hydroxyzine HCl 25 mg 03/02/25 08:06 Hydroxyzine Hcl 25 Mg Tablet PO TID PRN anxiety Piperacillin/Tazobactam/Dextrose 3.375 gm in 50 mls @ 100 mls/hr 03/01/25 12:00 03/04/25 11:20 Zosyn 3.375 Gm/Ns 50 Ml IVPB 100 mls/hr Q6HR RICARDO Administration Sodium Chloride 1,000 mls @ 75 mls/hr 03/01/25 04:00 03/04/25 04:44 Normal Saline Iv IV CONT 75 mls/hr .[id number] RICARDO Administration Dextrose 1,000 mls @ 100 mls/hr 03/01/25 09:46 Dextrose 5% 1,000 Ml IVPB PRN PRN Hypoglycemia Protocol Insulin Aspart 4 - 8 units 03/02/25 12:00 03/04/25 08:01 Insulin Aspart (*Bkc) 100 Units/Ml SUB-Q Not Given TIDWM RICARDO Protocol Insulin Aspart 2 - 4 units 03/02/25 21:00 03/03/25 22:39 Insulin Aspart (*Bkc) 100 Units/Ml SUB-Q Not Given HS RICARDO Protocol Metoprolol Tartrate 150 mg 03/02/25 09:00 03/04/25 08:10 Metoprolol Tartrate 50 Mg Tab PO 150 mg Q12H RICARDO Administration Morphine Sulfate 4 mg 03/01/25 03:59 03/01/25 13:49 Morphine Sulfate (*Crx) 4 Mg/Ml Inj IV PUSH 4 mg Q2H PRN Administration Pain Rated 7-10 Ondansetron HCl 4 mg 03/01/25 03:59 Ondansetron Inj 4 Mg/2 Ml Vial IV PUSH Q4H PRN Nausea Pantoprazole Sodium 40 mg 03/01/25 09:00 03/04/25 08:05 Pantoprazole Sodium Iv 40 Mg Vial IV PUSH 40 mg QAM RICARDO Administration Pregabalin 300 mg 03/02/25 09:00 03/04/25 08:13 Pregabalin (*Crx) 75 Mg Capsule PO 300 mg BID RICARDO Administration Radiology Results: ITS Impressions Chest X-Ray 03/01/25 05:25 Impression: Clear lungs. Loop recorder. Abdomen/Pelvis CT 03/01/25 06:08 Impression: Intrahepatic and extrahepatic biliary dilatation with filling defects of the distal common bile duct, consistent with choledocholithiasis. Consider MRCP as indicated. 1.4 cm right adrenal nodule, indeterminate. Consider follow-up MR to assess for adenoma. Moderate fat-containing ventral hernia. MRCP 03/01/25 14:03 IMPRESSION: 1. Choledocholithiasis in the distal common bile duct with potentially secondary mild intrahepatic extrahepatic biliary ductal dilation. Correlate with liver function tests. Endo Retro Cholangiopancreatogram 03/03/25 15:15 IMPRESSION: 1. Fluoroscopy utilized during ERCP and likely extraction of choledocholithiasis as seen on prior MRI. Please refer to the ERCP procedure note for additional details. Labs Labs: Laboratory Results - last 24 hr 03/03/25 03/03/25 03/03/25 11:29 16:53 20:43 WBC RBC Hgb Hct MCV MCH MCHC RDW Plt Count MPV Immature Gran % (Auto) Neut % (Auto) Lymph % (Auto) [place] % (Auto) Eos % (Auto) Baso % (Auto) Lymph # (Auto) [place] # (Auto) Eos # (Auto) Baso # (Auto) Abs Immat Gran (auto) Absolute Neuts (auto) Absolute Nucleated RBC Nucleated RBC % Sodium Potassium Chloride Carbon Dioxide Anion Gap BUN Creatinine Estim Creat Clear Calc Estimated GFR Glucose POC Capillary Glucose 119 H 168 H 172 H Calcium Magnesium Total Bilirubin AST ALT Alkaline Phosphatase Total Protein Albumin 03/04/25 03/04/25 05:24 07:45 WBC 6.4 RBC 4.39 Hgb 11.8 L Hct 36.9 L MCV 84.1 MCH 26.9 MCHC 32.0 RDW 13.7 Plt Count 337 MPV 9.4 Immature Gran % (Auto) 0.5 Neut % (Auto) 76.5 H Lymph % (Auto) 17.5 L [place] % (Auto) 5.3 Eos % (Auto) 0.0 Baso % (Auto) 0.2 Lymph # (Auto) 1.12 [place] # (Auto) 0.3 Eos # (Auto) 0.0 Baso # (Auto) 0.0 Abs Immat Gran (auto) 0.03 Absolute Neuts (auto) 4.9 Absolute Nucleated RBC 0.000 Nucleated RBC % 0.0 Sodium 137 Potassium 4.0 Chloride 108 H Carbon Dioxide 20 L Anion Gap 9 BUN 10 Creatinine 0.74 Estim Creat Clear Calc 86 Estimated GFR > 60 Glucose 139 H POC Capillary Glucose 123 H Calcium 8.6 Magnesium 1.9 Total Bilirubin 1.5 H AST 32 ALT 30 Alkaline Phosphatase 306 H Total Protein 6.0 L Albumin 3.0 L
[2025-03-04 11:31] LABS: Glucose Point of Care 149 mg/dl (65-105)
[2025-03-04] MEDS: polyethylene glycoL 3350 17 GM POWD.PACK PO (11:51)
--- NOTE | 2025-03-04 13:32 | WPDGIPROGNO ---
Progress Note: A&P Assessment and Plan (1) Choledocholithiasis: Code(s): K80.50 - Calculus of bile duct without cholangitis or cholecystitis without obstruction Status: Acute Assessment and Plan: Patient is status post ERCP yesterday, successful stone extraction and sphincterotomy. Biochemically normalized, including transaminases and bilirubin. She can be safely discharged on a regular diet, with follow-up with GI clinic and her primary care physician. Subjective Date/time seen: 03/04/25 13:32 Interval history: the patient feels better today, slight abdominal discomfort after eating, no fever, no real abdominal pain. Objective Data Vital Signs Vital Signs: Vital Signs - 24 hr 03/03/25 13:40 03/03/25 13:50 03/03/25 14:00 Temperature Pulse Rate 57 L 60 56 L Respiratory Rate 19 16 19 Blood Pressure 155/69 H 159/72 H 157/69 H Pulse Oximetry 98 99 100 Oxygen Delivery Room Air Room Air Room Air 03/03/25 14:10 03/03/25 14:25 03/03/25 14:40 Temperature 96.5 F L 97.3 F L 97.1 F L Pulse Rate 55 L 78 58 L Respiratory Rate 21 H 18 18 Blood Pressure 145/80 H 130/67 168/64 H Pulse Oximetry 99 100 97 Oxygen Delivery Room Air 03/03/25 15:10 03/03/25 16:10 03/03/25 20:13 Temperature 97.5 F L 97.6 F Pulse Rate 56 L 71 60 Respiratory Rate 18 20 Blood Pressure 178/65 H 170/60 H Pulse Oximetry 100 95 Oxygen Delivery 03/03/25 20:15 03/03/25 20:39 03/04/25 04:58 Temperature 97.4 F L 97.5 F L Pulse Rate 56 L 56 L 49 L Respiratory Rate 16 16 14 Blood Pressure 152/56 H 135/61 Pulse Oximetry 100 100 95 Oxygen Delivery Room Air 03/04/25 08:00 03/04/25 08:10 Temperature Pulse Rate 64 Respiratory Rate Blood Pressure Pulse Oximetry Oxygen Delivery Room Air Intake/Output Intake/Output: Intake & Output 03/01/25 03/02/25 03/03/25 03/04/25 23:59 23:59 23:59 23:59 Intake Total 1931.3 2500.0 2180 1700 Balance 1931.3 2500.0 2180 1700 Meds/Results Medications: Active Medications Generic Name Dose Route Start Last Admin Trade Name Freq PRN Reason Stop Dose Admin Albuterol 2 puff 03/01/25 11:01 Albuterol Sulfate (*Sp) Aerosol 1 Puff INHALATION QIDRT PRN shortness of breath or wheezing Atorvastatin Calcium 40 mg 03/02/25 09:00 03/04/25 08:10 Atorvastatin 40 Mg Tablet PO 40 mg DAILY RICARDO Administration Dextrose 12.5 gm 03/01/25 09:46 Dextrose 50% 25 Gm/50 Ml Syringe IV PUSH PRN PRN Hypoglycemia Protocol Docusate Sodium 100 mg 03/04/25 11:24 Docusate Sodium 100 Mg Capsule PO Q12H PRN Constipation Fluticasone Propionate 2 spray 03/02/25 09:00 03/04/25 08:15 Fluticasone Propionate 0.05% Na Spr 16 Gm Btl (*Bkc) NASAL Not Given QAM RICARDO Glucagon 1 mg 03/01/25 09:46 Glucagon For Inj 1 Mg Vial IM PRN PRN Hypoglycemia Protocol Glucose 15 gm 03/01/25 09:46 Glucose Oral Gel 15 Gm Of Glucse In 37.5 Gm Tube PO PRN PRN Hypoglycemia Protocol Hydroxyzine HCl 25 mg 03/02/25 08:06 Hydroxyzine Hcl 25 Mg Tablet PO TID PRN anxiety Piperacillin/Tazobactam/Dextrose 3.375 gm in 50 mls @ 100 mls/hr 03/01/25 12:00 03/04/25 11:20 Zosyn 3.375 Gm/Ns 50 Ml IVPB 100 mls/hr Q6HR RICARDO Administration Sodium Chloride 1,000 mls @ 75 mls/hr 03/01/25 04:00 03/04/25 04:44 Normal Saline Iv IV CONT 75 mls/hr .[id number] RICARDO Administration Dextrose 1,000 mls @ 100 mls/hr 03/01/25 09:46 Dextrose 5% 1,000 Ml IVPB PRN PRN Hypoglycemia Protocol Insulin Aspart 4 - 8 units 03/02/25 12:00 03/04/25 12:17 Insulin Aspart (*Bkc) 100 Units/Ml SUB-Q Not Given TIDWM RICARDO Protocol Insulin Aspart 2 - 4 units 03/02/25 21:00 03/03/25 22:39 Insulin Aspart (*Bkc) 100 Units/Ml SUB-Q Not Given HS [facility] Protocol Metoprolol Tartrate 150 mg 03/02/25 09:00 03/04/25 08:10 Metoprolol Tartrate 50 Mg Tab PO 150 mg Q12H RICARDO Administration Morphine Sulfate 4 mg 03/01/25 03:59 03/01/25 13:49 Morphine Sulfate (*Crx) 4 Mg/Ml Inj IV PUSH 4 mg Q2H PRN Administration Pain Rated 7-10 Ondansetron HCl 4 mg 03/01/25 03:59 Ondansetron Inj 4 Mg/2 Ml Vial IV PUSH Q4H PRN Nausea Pantoprazole Sodium 40 mg 03/01/25 09:00 03/04/25 08:05 Pantoprazole Sodium Iv 40 Mg Vial IV PUSH 40 mg QAM RICARDO Administration Polyethylene Glycol 17 gm 03/04/25 11:25 03/04/25 11:51 Polyethylene Glycol 3350 17 Gm Powd.Pack PO 17 gm QAM RICARDO Administration Pregabalin 300 mg 03/02/25 09:00 03/04/25 08:13 Pregabalin (*Crx) 75 Mg Capsule PO 300 mg BID RICARDO Administration Radiology Results: ITS Impressions Chest X-Ray 03/01/25 05:25 Impression: Clear lungs. Loop recorder. Abdomen/Pelvis CT 03/01/25 06:08 Impression: Intrahepatic and extrahepatic biliary dilatation with filling defects of the distal common bile duct, consistent with choledocholithiasis. Consider MRCP as indicated. 1.4 cm right adrenal nodule, indeterminate. Consider follow-up MR to assess for adenoma. Moderate fat-containing ventral hernia. MRCP 03/01/25 14:03 IMPRESSION: 1. Choledocholithiasis in the distal common bile duct with potentially secondary mild intrahepatic extrahepatic biliary ductal dilation. Correlate with liver function tests. Endo Retro Cholangiopancreatogram 03/03/25 15:15 IMPRESSION: 1. Fluoroscopy utilized during ERCP and likely extraction of choledocholithiasis as seen on prior MRI. Please refer to the ERCP procedure note for additional details. Labs Labs: Laboratory Results - last 24 hr 03/03/25 03/03/25 03/04/25 16:53 20:43 05:24 WBC 6.4 RBC 4.39 Hgb 11.8 L Hct 36.9 L MCV 84.1 MCH 26.9 MCHC 32.0 RDW 13.7 Plt Count 337 MPV 9.4 Immature Gran % (Auto) 0.5 Neut % (Auto) 76.5 H Lymph % (Auto) 17.5 L [place] % (Auto) 5.3 Eos % (Auto) 0.0 Baso % (Auto) 0.2 Lymph # (Auto) 1.12 [place] # (Auto) 0.3 Eos # (Auto) 0.0 Baso # (Auto) 0.0 Abs Immat Gran (auto) 0.03 Absolute Neuts (auto) 4.9 Absolute Nucleated RBC 0.000 Nucleated RBC % 0.0 Sodium 137 Potassium 4.0 Chloride 108 H Carbon Dioxide 20 L Anion Gap 9 BUN 10 Creatinine 0.74 Estim Creat Clear Calc 86 Estimated GFR > 60 Glucose 139 H POC Capillary Glucose 168 H 172 H Calcium 8.6 Magnesium 1.9 Total Bilirubin 1.5 H AST 32 ALT 30 Alkaline Phosphatase 306 H Total Protein 6.0 L Albumin 3.0 L 03/04/25 03/04/25 07:45 11:25 WBC RBC Hgb Hct MCV MCH MCHC RDW Plt Count MPV Immature Gran % (Auto) Neut % (Auto) Lymph % (Auto) [place] % (Auto) Eos % (Auto) Baso % (Auto) Lymph # (Auto) [place] # (Auto) Eos # (Auto) Baso # (Auto) Abs Immat Gran (auto) Absolute Neuts (auto) Absolute Nucleated RBC Nucleated RBC % Sodium Potassium Chloride Carbon Dioxide Anion Gap BUN Creatinine Estim Creat Clear Calc Estimated GFR Glucose POC Capillary Glucose 123 H 149 H Calcium Magnesium Total Bilirubin AST ALT Alkaline Phosphatase Total Protein Albumin
[2025-03-04 14:00] VITALS: BP 109/45; PULSE 47; RESP 16; TEMP 36.1; O2SAT 94
--- NOTE | 2025-03-04 14:53 | P.DS_ITS ---
DS: Admitting Diagnosis Discharge Date 03/04/2025 Admitting Diagnosis Abdominal pain and epigastric pain going into back. DS: Discharge Diagnosis Discharge Diagnosis (1) Transaminitis: Code(s): R74.01 - Elevation of levels of liver transaminase levels Status: Acute (2) Choledocholithiasis: Code(s): K80.50 - Calculus of bile duct without cholangitis or cholecystitis without obstruction Status: Acute (3) Type 2 diabetes mellitus with diabetic polyneuropathy: Code(s): E11.42 - Type 2 diabetes mellitus with diabetic polyneuropathy Status: Acute DS: Summary Hospital Course Hospital Course: Patient is a 64 year old female that came to the hospital with abdominal pain and epigastric pain. Patient started a week before [place] then let up. Pain yesterday was a 7', constant, and stabbing. ER work up showed: Total bilirubin 4.6, AST 148, ALT 74, Alkaline phosphatase 542, anion gap 13. Trop negative x2. Chest X-ray negative. CT abdomen/pelvis Impression: -Intrahepatic and extrahepatic biliary dilatation with filling defects of the distal common bile duct, consistent with choledocholithiasis. Consider MRCP as indicated. -1.4 cm right adrenal nodule, indeterminate. Consider follow-up MR to assess for adenoma. -Moderate fat-containing ventral hernia. MRCP showed: FINDINGS: ABDOMEN MRCP: Diffuse mild intrahepatic biliary ductal dilation. There is also prominent dilation of the common hepatic duct measuring up to 2.1 cm tapering to 1.4 cm in the common hepatic duct. There 3 low signal intensity gallstones within the distal common bile duct, the largest and most proximal cubital stone measuring 11 mm per side. ABDOMEN MRI: Heart size is normal. No pericardial or pleural effusion. Liver is normal aside from the intrapedicular ductal dilation. Is metallic field artifact associated with cholecystectomy clips the gallbladder fossa. Additional metallic magnetic field artifact centered at the left breast potentially a biopsy marker. Spleen, pancreas, left adrenal glands and right kidney are normal. 1.5 cm T2 hyperintense nonenhancing left renal cyst. 1.3 cm right adrenal nodule with signal dropout on opposed phase imaging which is unchanged since CT date most consistent with an adenoma. Air-fluid level within a duodenal diverticulum arising from the second portion of the duodenum. Visualized bowels are otherwise unremarkable with no obstruction. Uterus, bilateral adnexa and visualized portion of the bladder are unremarkable. No pathologically enlarged abdominal or pelvic lymphadenopathy. Chronic mild T11 compression fracture. Moderate spondylosis in the lumbar and lower thoracic spine. Small fat-containing umbilical hernia and moderate-sized fat-containing supraumbilical ventral hernia. IMPRESSION: 1. Choledocholithiasis in the distal common bile duct with potentially secondary mild intrahepatic extrahepatic biliary ductal dilation. Correlate with liver function tests. ERCP 03/03/25 showed multiple stones were observed in the common bile duct. A stone extraction was performed (noted multiple stones, largest 1 cm with sludge removed). Occlusion cholangiogram after multiple balloon sweeps with normal bile duct without any more filling defects. HgbA1C 7.1% on 03/02/25. Blood cultures no growth to date. Status at Discharge Functional status at discharge: uses cane/walker Overall status at discharge: patient is progressing back to baseline Time Spent with Patient Time attestation: Total time spent providing and/or coordinating discharge services: Time spent: Greater than 30 minutes Exam Narrative: Patient reports slight heartburn this morning. Const: General: comfortable and no acute distress Resp: Effort & Inspection: normal respiratory effort Auscultation: clear to auscultation bilaterally Cardio: Rate: regular rate Rhythm: regular rhythm GI: GI Palp: Yes Soft to palpation Auscultation: normal bowel sounds Extrem: General: no pedal edema Psych: Mental Status: mental status grossly normal Affect: normal affect DS: Data Data Completed and Pending Labs on day of discharge: Labs from last 24 hours 03/04/25 03/04/25 03/04/25 11:25 07:45 05:24 WBC 6.4 RBC 4.39 Hgb 11.8 L Hct 36.9 L MCV 84.1 MCH 26.9 MCHC 32.0 RDW 13.7 Plt Count 337 MPV 9.4 Immature Gran % (Auto) 0.5 Neut % (Auto) 76.5 H Lymph % (Auto) 17.5 L [place] % (Auto) 5.3 Eos % (Auto) 0.0 Baso % (Auto) 0.2 Lymph # (Auto) 1.12 [place] # (Auto) 0.3 Eos # (Auto) 0.0 Baso # (Auto) 0.0 Abs Immat Gran (auto) 0.03 Absolute Neuts (auto) 4.9 Absolute Nucleated RBC 0.000 Nucleated RBC % 0.0 Sodium 137 Potassium 4.0 Chloride 108 H Carbon Dioxide 20 L Anion Gap 9 BUN 10 Creatinine 0.74 Estim Creat Clear Calc 86 Estimated GFR > 60 Glucose 139 H POC Capillary Glucose 149 H 123 H Calcium 8.6 Magnesium 1.9 Total Bilirubin 1.5 H AST 32 ALT 30 Alkaline Phosphatase 306 H Total Protein 6.0 L Albumin 3.0 L 03/03/25 03/03/25 20:43 16:53 WBC RBC Hgb Hct MCV MCH MCHC RDW Plt Count MPV Immature Gran % (Auto) Neut % (Auto) Lymph % (Auto) [place] % (Auto) Eos % (Auto) Baso % (Auto) Lymph # (Auto) [place] # (Auto) Eos # (Auto) Baso # (Auto) Abs Immat Gran (auto) Absolute Neuts (auto) Absolute Nucleated RBC Nucleated RBC % Sodium Potassium Chloride Carbon Dioxide Anion Gap BUN Creatinine Estim Creat Clear Calc Estimated GFR Glucose POC Capillary Glucose 172 H 168 H Calcium Magnesium Total Bilirubin AST ALT Alkaline Phosphatase Total Protein Albumin Preliminary micro results at discharge 03/01/25 05:01 Blood Culture - Preliminary Blood 03/01/25 05:01 Blood Culture - Preliminary Blood Discharge Plan Discharge Attending physician on discharge: Rusty Jacobo Discharging Clinician: Cortney Armenta Anticipated Discharge Date/Time: 03/04/25 15:30 Patient Disposition: Home Activity: may shower and as tolerated Diet: regular Discharge Instructions: * Report to provider any abdominal pain, heartburn, nausea, vomiting, or fever >101. * Take medications as prescribed. Thank you for entrusting [facility] with your healthcare! Patient Instructions: Antibiotic Form, Gallstones (DC), Diverticulosis (DC) Patient Language: Macedonian Stand Alone Forms: General Discharge Information Follow-up/Referrals: Galileo,FITO Laguna [Primary Care Provider] - 1 Week Db James MD [Physician] - 2 Weeks Discharge Medications: New pantoprazole [Protonix] 40 mg tablet,delayed release (DR/EC) 40 mg PO QAM Qty: 30 0RF Continued Jardiance 25 mg tablet 25 mg PO DAILY pregabalin 300 mg capsule 300 mg PO BID albuterol sulfate [Ventolin HFA] 90 mcg/actuation HFA aerosol inhaler 2 puff inhalation QID PRN (Reason: shortness of breath or wheezing) Qty: 8.5 0RF mometasone [Allergy Nasal (mometasone)] 50 mcg/actuation spray,non-aerosol 2 spray intranasal BID Qty: 17 0RF Rx Instructions: administer into each nostril Januvia 100 mg tablet 100 mg PO DAILY hydroxyzine HCl 25 mg tablet 25 mg PO TID PRN (Reason: anxiety) aspirin [Children's Aspirin] 81 mg Tablet,Chewable 81 mg PO DAILY@0800 Qty: 30 2RF metoprolol tartrate 100 mg tablet 150 mg PO Q12H Qty: 1 0RF Rx Instructions: TAKE 1 & 1/2 (ONE & ONE-HALF) TABLETS BY MOUTH TWICE DAILY (DME) OneTouch Ultra Test Strip See Rx Instructions .Route Qty: 200 0RF Rx Instructions: As directed QID atorvastatin 40 mg tablet 40 mg PO DAILY Qty: 90 1RF metformin 1,000 mg tablet 1,000 mg PO BID Qty: 180 0RF Date of admission: 03/01/25 03:59 Primary Care Provider: WenLuz Elena Admitting Provider: Rufina Colindres Attending physician on admission: Rufina Colindres Condition: Stable Hospitalist MIPS Heart Failure (Exclusion) Patient has history of Heart Transplant or Left Ventricular Assistive Device?: No IF YES, STOP HERE Heart Failure (Qualifier) Patient has current or prior documentation of LVEF less than or equal to 40%, or mod/servere depressed LVSF?: No IF NO, STOP HERE
--- NOTE | 2025-03-04 16:30 | PC.NURSE ---
On 03/04/25, the CAFETERIA MONITOR, Vicky Marsh, provided care and completed Gusto documentation on this patient. I have reviewed the CAFETERIA MONITOR's documentation and agree with the findings.
--- NOTE | 2025-03-04 16:50 | PC.NURSE ---
Patient's home medications and wallet returned to her at discharge on 03/04/25 at 1650.
== END 2025-03-04 16:50 | disposition home or self-care (01) ==
LOC: ANHED 04:09 → ANH3MEDSUR 09:21
PROVIDERS: Internal Medicine Gastroenterology; Nurse Practitioner Family; Admitting Provider General Practice; Emergency Provider Emergency Medicine; PCP Physician Assistant; Visit Provider General Practice
PROC: (CPT 43260; principal; 2025-03-03 15:00)
DX: K80.50 Calculus of bile duct without cholangitis or cholecystitis without obstruction (principal); K57.10 Diverticulosis of small intestine without perforation or abscess without bleeding; Z90.49 Acquired absence of other specified parts of digestive tract; R74.01 Elevation of levels of liver transaminase levels; E11.42 Type 2 diabetes mellitus with diabetic polyneuropathy; E78.00 Pure hypercholesterolemia, unspecified; I10 Essential (primary) hypertension; E66.01 Morbid (severe) obesity due to excess calories; Z68.41 Body mass index [BMI] 40.0-44.9, adult; Z86.16 Personal history of COVID-19; Z79.51 Long term (current) use of inhaled steroids; Z79.82 Long term (current) use of aspirin; Z79.84 Long term (current) use of oral hypoglycemic drugs; Z79.899 Other long term (current) drug therapy
CPT/HCPCS: 43262; 43264; 36415; 71046; 74177; 74183; 74329; 76376; 80053; 82948; 83036; 83690; 83735; 84484; 85025; 85610; 85730; 87040; 93005; 96365; 96375; 96376; 99285; A9270; A9577; G0378; G0379; J0330; J1100; J2003; J2270; J2405; J2470; J2543; J2704; J3010; J7030; J7120; Q9966; Q9967

== ENCOUNTER 2025-05-22 07:57 | Outpatient (CLI) | payer OTHER, SELFPAY ==
--- OUTSIDE RECORDS SUMMARY | 2025-05-22 08:04 | XMS_ITS | Referral Summary ---
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
--- OUTSIDE RECORDS SUMMARY | 2025-05-22 08:04 | XMS_ITS | Clinical Summary ---
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
== END 2025-05-22 07:58 | disposition home or self-care (01) ==
LOC: ANHAUDIO 08:01
PROVIDERS: PCP Physician Assistant; Visit Provider Physician Assistant
DX: H90.3 Sensorineural hearing loss, bilateral (principal); H93.13 Tinnitus, bilateral
CPT/HCPCS: 92557; 92567